=== PATIENT | male | born 1950 | race Asian ===

== ENCOUNTER 2016-10-11 14:09 | Inpatient (IN) | payer MEDICARE, MEDICAID ==
[~2016-10-11] VITALS: Ht 165.1 cm; Wt 65.8 kg
[~2016-10-11 14:09] MED LIST: ACET-2605 JT; ACET-2605 PO; ACET325T53 JT; ALBU2.5V38 IH; AMIN30LI4 JT; AMLO5TAB2 JT; BISA10SU61 RC; BLOO-668 IN; CLIN300C97 PO; DOCU50LI JT; EMPA1TAB JT; ERGO50003 JT; FERR220S2 JT; INSU100V26 SQ; IPRA0.2S9 IH; LEVE100S JT; MAGN400O4 JT; METF500T4 JT; MULT1TAB11 JT; NA P133E RC; NUT.237L30 JT; PANT40SU2 JT; PIOG30TA2 JT; SUCR1ORA2 JT
--- NOTE | 2016-10-11 14:19 | NUR ---
NAVI FROM [facility] DUE TO J-TUBE DISLODGED. PT IS AWAKE, HOWEVER NON VERBAL. APPEARS IN NO APPARENT DISTRESS. VENT DEPENDENT. PATIENT RECEIVED WITH GT CONNCTED TO DRAINAGE BAG WITH GREENISH YELLOW OUTPUT. JT DISLODGE WITH FC INPLACED FOR PATENCY. WILL CONT TO MONITOR
[2016-10-11] MEDS ORDERED: IV NS 0.9% 500 ML BAG IV ONE (15:00)
--- NOTE | 2016-10-11 15:02 | NUR ---
PAGED DR LI DE JESUS
[2016-10-11 15:03] VITALS: BP 111/68
[2016-10-11] MEDS ORDERED: IV NS 0.9% 500 ML IV ONE (15:09)
[2016-10-11] MEDS ORDERED: INSU100V10 SQ (15:20)
[2016-10-11] MEDS ORDERED: ACET325T53 JT (15:20)
[2016-10-11] MEDS ORDERED: METF10002 JT (15:20)
[2016-10-11] MEDS ORDERED: HEPA500014 SQ (15:20)
[2016-10-11] MEDS ORDERED: ATOR10TA JT (15:20)
[2016-10-11] MEDS ORDERED: CRAN3875 JT (15:26)
[2016-10-11] MEDS ORDERED: LINA5TAB JT (15:26)
[2016-10-11] MEDS ORDERED: CHOL50004 JT (15:26)
[2016-10-11] MEDS ORDERED: DEXA4TAB JT (15:27)
[2016-10-11] MEDS ORDERED: DEXA2TAB JT (15:37)
--- NOTE | 2016-10-11 15:50 | NUR ---
CORWIN AWARE FOR MIDLINE INSERTION PER MD ORDER.
--- NOTE | 2016-10-11 16:18 | NUR ---
REPAGED DR LI DE JESUS
[2016-10-11] MEDS ORDERED: AMIN30LI4 JT (16:20)
[2016-10-11] MEDS ORDERED: LEVO500T15 JT (16:28)
[2016-10-11] MEDS ORDERED: OMEP20CA10 JT (16:28)
--- NOTE | 2016-10-11 17:14 | NUR ---
PATIENT WAS TRANSPORTED TO [address] [place] [address]
[2016-10-11 17:22] LABS: BASOPHILS # (AUTO) 0.2 /CMM (0.0-0.2); EOSINOPHILS % (AUTO) 0.1 % (0.0-6.0); HEMATOCRIT 40 % (39-51); HEMOGLOBIN 13.2 g/dL (13.5-17.5); LYMPHOCYTES # (AUTO) 1.9 /CMM (0.8-4.8); LYMPHOCYTES % (AUTO) 15.9 % (20.0-44.0); MEAN CORPUSCULAR HEMOGLOBIN 30 PG (26.0-33.0); MEAN CORPUSCULAR HGB CONC 33 g/dl (31.0-36.0); MEAN CORPUSCULAR VOLUME 89 fL (80-96); MONOCYTES # (AUTO) 0.3 /CMM (0.1-1.30); MONOCYTES % (AUTO) 2.8 % (2.0-12.0); NEUTROPHILS # (AUTO) 9.6 /CMM (1.8-8.9); NEUTROPHILS % (AUTO) 79.2 % (43.0-81.0); PLATELET COUNT (AUTO) 146 /CMM (150-450); RDW COEFFICIENT OF VARIATION 15.5 (11.5-15.0); RED BLOOD CELL COUNT(AUTO) 4.49 MIL/uL (4.5-6.0)
[2016-10-11 17:25] VITALS: BP 120/73
--- NOTE | 2016-10-11 17:25 | NUR ---
DIRECTOR OF DANCEHANSARD REPORTER RECEIVED PATIENT FROM ER FOR J TUBE REPLACEMENT. MAI IN PLACE OF J TUBE SITE. VENT DEPENDENT RESPIRATORY SET UP VENT. PATIENT VS STABLE. AT BEDSIDE. SKIN CARE COMPLETED. DR DE JESUS CALLED FOR MEDICATION AND TUBE FEEDING ORDERS FOR PATIENT. RAILS UPX3 BED ALARM ON. EXTREMITIES OFFLOADED.
[2016-10-11 17:27] LABS: CREATININE 0.7 mg/dL (0.6-1.3); POTASSIUM 3.5 mmol/L (3.5-5.1)
[2016-10-11 17:29] LABS: PROTHROMBIN TIME 10.4 SECS (9.5-12.7)
[2016-10-11 17:31] LABS: ALBUMIN 2.3 g/dL (3.4-5.0); BILIRUBIN,DIRECT 0.1 mg/dL (0.0-0.2); BILIRUBIN,TOTAL 0.8 mg/dL (0.2-1.0); TOTAL PROTEIN, SERUM 6.5 g/dL (6.4-8.2)
--- NOTE | 2016-10-11 18:00 | NUR ---
LYFT DRIVER NOTES PER DR DE JESUS TELEPHONE ORDER MED RECON UPDATED AND FAXED TO PHARMACY. OK CONSULT NEHAL MARTINEZ FOR J TUBE PLACEMENT.
--- NOTE | 2016-10-11 18:26 | NUR ---
PHYSICIAN GYNECOLOGIST NOTES NOTIFIED MD CALVERT OF CONSULT HE WILL SEE. ORDER #22 AND #24 J TUBE REPLACEMENTS FOR THE AM TOMORROW 10/12. PER DR DE JESUS ORDER D51/2NS AT 150/HR
--- NOTE | 2016-10-11 18:28 | NUR ---
CLINICAL CYTOGENETICS DIRECTOR NOTES CONFIRMED WITH PHARMACY THEY RECEIVED FAX MED RECON
--- NOTE | 2016-10-11 18:58 | NUR ---
AUDIO VIDEO MECHANIC CLOSING PATIENT STABLE NO COMPLICATIONS NO CHANGES. ALL DRESSINGS OVER JTUBE G TUBE WOUND AND TRACH SITE CHANGED AND CLEAN. #22 J TUBE SITE AT BEDSIDE. UPDATED ON CARE PLAN. PATIENT VENT SETTING APPROPRIATE AND TOLERATING WELL. PATIENT BED LOWERED AND LOCKED, RAILS UPX3 FOR SAFETY AND WILL ENDORSE CARE TO RN FOR BLANCA
--- NOTE | 2016-10-11 19:00 | NUR ---
RN NOTE RECEIVED REPORT. NO S/S OF ANY DISTRESS AT THIS TIME, VENT SETTINGS ACCURATE. SKINWARM TO TOUCH, NON-DIAPHORETIC. IV INTACT AND PATENT, TOLERATING FLUIDS WELL. TELE SHOWS SR. PT IS NPO - WILL CONT TO MONITOR.
[2016-10-11] MEDS ORDERED: ALBUTEROL FS 2.5 MG/3 ML VIAL.NEB IH PRN (19:30)
[2016-10-11] MEDS: ATORVASTATIN 10 MG TABLET PEG SCH (19:30)
[2016-10-11] MEDS ORDERED: BISACODYL SUPP (10 MG) 10 MG/SUPP.RECT SUPP.RECT RC PRN (19:30)
[2016-10-11] MEDS: ACETAMINOPHEN 650 MG/20.3 ML UDC GT SCH (19:30)
[2016-10-11] MEDS: IPRATROPIUM NEB FS 0.5 MG/2.5 ML AMPUL.NEB IH SCH (19:30)
[2016-10-11] MEDS: PROSOURCE / PROSTAT (PYXIS) 30 ML UDC JT SCH (19:30)
[2016-10-11] MEDS ORDERED: IPRATROPIUM NEB FS 0.5 MG/2.5 ML AMPUL.NEB IH PRN (19:30)
[2016-10-11] MEDS ORDERED: MAGNESIUM HYDROXIDE 30 ML UDC JT PRN (19:30)
[2016-10-11] MEDS ORDERED: NA PHOS,M-B/NA PHOS,DI-BA 1 EA ENEMA RC PRN (19:30)
[2016-10-11] MEDS ORDERED: ACETAMINOPHEN 650 MG/20.3 ML UDC GT PRN (19:30)
[2016-10-11] MEDS: LEVETIRACETAM SOL (5 ML) 100 MG/ML UDC JT SCH (19:30)
[2016-10-11] MEDS ORDERED: GLYTROL 1,000 ML BAG GT SCH (19:30)
[2016-10-11] MEDS: ALBUTEROL FS 2.5 MG/3 ML VIAL.NEB IH SCH (19:30)
[2016-10-11 19:32] LABS: ANISOCYTOSIS 1+; BAND % (MANUAL) 4 % (0.0-5.0); LYMPHOCYTES % (MANUAL) 22 % (16-48); MONOCYTES % (MANUAL) 2 % (0-11.0); NEUTROPHILS % (MANUAL) 72 (42-76); PLATELET ESTIMATE DECREASED
[2016-10-11] MEDS ORDERED: IV SET PRIMARY PUMP SET 1 EA INFUS.SET MC ONE (19:44)
[2016-10-11] MEDS: METFORMIN 500 MG TABLET GT SCH (19:45)
[2016-10-11] MEDS: FERROUS SULFATE UDC 300 MG/5 ML UDC JT SCH (19:46)
[2016-10-11 20:00] VITALS: BP 101/67
[2016-10-11] MEDS: IV D5/0.45 NACL 1,000 ML IV PRN (20:03)
[2016-10-11] MEDS: HEPARIN SODIUM, PORCINE 5000 UNITS/1 ML VIAL SQ SCH (21:00)
[2016-10-11] MEDS: INSULIN DETEMIR 100 UNIT/ML CARTRIDGE SQ SCH (21:00)
--- NOTE | 2016-10-11 23:30 | NUR ---
RN NOTE MD IN TO SEE PATIENT, REMINDED HIM OF PTS WOUNDS. WILL CONT TO MONITOR.
[2016-10-12] VITALS: BP 111/63
[2016-10-12] MEDS: BLOOD SUGAR DIAGNOSTIC 1 EACH STRIP IN SCH ×4 (00:12→18:13)
[2016-10-12] MEDS: IPRATROPIUM NEB FS 0.5 MG/2.5 ML AMPUL.NEB IH SCH ×4 (01:34→19:30)
[2016-10-12] MEDS: ALBUTEROL FS 2.5 MG/3 ML VIAL.NEB IH SCH ×4 (01:34→19:30)
[2016-10-12 04:00] VITALS: BP 123/86
[2016-10-12] MEDS: IV D5/0.45 NACL 1,000 ML IV PRN ×2 (04:05→18:24)
[2016-10-12] MEDS: DEXAMETHASONE 1 MG TABLET JT SCH ×3 (05:00→21:00)
--- NOTE | 2016-10-12 06:20 | NUR ---
RN NOTE PT BS 237, PER DR. DE JESUS START PATIENT ON ASPART INSULIN - BUT DID NOT SPECIFY THE DOSE. AWAITING CALL BACK FROM DR. LOCKHART ENDORSE TO DAY SHIFT FOR BLANCA.
--- NOTE | 2016-10-12 06:35 | NUR ---
RN NOTE NO SIGNIFICANT CHANGES OVERNIGHT. NO S/S OF ANY DISTRESS AT THIS TIME. ON VENT - SETTINGS ACCURATE, KEPT CLEAN AND COMFORTABLE T/O SHIFT. ROTATED Q2 HRS. KEPT NPO FOR SURGERY WITH MD TODAY. IV INTACT AND PATENT, TOLERATING FLUIDS WELL. TELE SHOWS SR. ALL NEEDS ATTENED TO AT THIS TIME. WILL F/U WITH DAY SHIFT FOR BLANCA.
[2016-10-12 07:01] VITALS: BP 120/86
--- NOTE | 2016-10-12 08:00 | NUR ---
MS RN NOTES RECEIVED PT IN STABLE CONDITION. PT IS NONVERBAL BUT OPENS EYES AND RESPONDS TO TOUCH. PT ON MECHANICAL VENTILATOR. VENT SETTINGS WERE CHECKED AND ACCURATE. NO S/S OF DISTRESS NOTED. IV IS INTACT AND PATENT. NOTED PT TO BE NPO IN PREPARATION OF J TUBE REPLACEMENT. G TUBE IS CURRENTLY DRAINING VIA GRAVITY. WILL CONTINUE TO MONITOR PT THROUGHOUT SHIFT.
[2016-10-12 08:37] LABS: BASOPHILS % (AUTO) 0.2 % (0.0-2.0); HEMATOCRIT 40 % (39-51); HEMOGLOBIN 12.9 g/dL (13.5-17.5); LYMPHOCYTES # (AUTO) 1.2 /CMM (0.8-4.8); LYMPHOCYTES % (AUTO) 11.5 % (20.0-44.0); MEAN CORPUSCULAR HEMOGLOBIN 29 PG (26.0-33.0); MEAN CORPUSCULAR HGB CONC 33 g/dl (31.0-36.0); MEAN CORPUSCULAR VOLUME 90 fL (80-96); MONOCYTES # (AUTO) 0.9 /CMM (0.1-1.30); MONOCYTES % (AUTO) 8.3 % (2.0-12.0); NEUTROPHILS # (AUTO) 8.4 /CMM (1.8-8.9); PLATELET COUNT (AUTO) 144 /CMM (150-450); RDW COEFFICIENT OF VARIATION 16.4 (11.5-15.0); RED BLOOD CELL COUNT(AUTO) 4.42 MIL/uL (4.5-6.0); WHITE BLOOD COUNT (AUTO) 10.5 K/uL (4.3-11.0)
[2016-10-12 08:52] LABS: CALCIUM, SERUM 7.8 mg/dL (8.5-10.1); CREATININE 0.6 mg/dL (0.6-1.3); POTASSIUM 3.5 mmol/L (3.5-5.1)
[2016-10-12] MEDS: DOCUSATE SODIUM LIQ 100 MG/10 ML UDC JT SCH (09:00)
[2016-10-12] MEDS: INSULIN DETEMIR 100 UNIT/ML CARTRIDGE SQ SCH ×2 (09:00→21:00)
[2016-10-12] MEDS: FERROUS SULFATE UDC 300 MG/5 ML UDC JT SCH ×3 (09:00→17:00)
[2016-10-12] MEDS: METFORMIN 500 MG TABLET GT SCH ×2 (09:00→17:00)
[2016-10-12] MEDS: HEPARIN SODIUM, PORCINE 5000 UNITS/1 ML VIAL SQ SCH ×2 (09:00→21:00)
[2016-10-12] MEDS: CHOLECALCIFEROL 1,000 UNIT TABLET (VIT D3) JT SCH (09:00)
[2016-10-12] MEDS: LINAGLIPTIN 5 MG TABLET PEG SCH (09:00)
[2016-10-12] MEDS: ATORVASTATIN 10 MG TABLET PEG SCH (09:00)
[2016-10-12] MEDS: ACETAMINOPHEN 650 MG/20.3 ML UDC GT SCH (09:00)
[2016-10-12] MEDS: PANTOPRAZOLE 40 MG/PACK PACK JT SCH (09:00)
[2016-10-12] MEDS ORDERED: Medication Not On Formulary EA (Cran/Vitc/Mannose/Inulin/Brom (Uti-Stat Liquid) 30 ML) JT SCH (09:00)
[2016-10-12] MEDS: MULTIVITAMIN LIQ 5 ML UDC GT SCH (09:00)
[2016-10-12] MEDS ORDERED: HYDROGEL DRESSING 90 GM TUBE TP PRN (09:00)
[2016-10-12] MEDS: LEVETIRACETAM SOL (5 ML) 100 MG/ML UDC JT SCH ×2 (09:00→17:00)
[2016-10-12] MEDS: PROSOURCE / PROSTAT (PYXIS) 30 ML UDC JT SCH (09:00)
--- NOTE | 2016-10-12 09:05 | NUR ---
WOUND CARE CONSULT: PT PRESENTS WITH LEFT KNEE STAGE IV ULCER, PRESENT ON ADMISSION WITH UNDERMINING OF 3CM AT 12:00 POSITION AND GREENISH DRAINAGE. RECOMMEND SURGICAL CONSULT. PT ALSO NOTED TO HAVE ABRASION TO RT ANTERIOR FOOT AND 2 TUBES TO ABDOMEN, LOWER TUBE IS CLAMPED AND UPPER TUBE TO DRAINAGE BAG. DEFER TO MD. PT ON ANGIE ISOFLEX LOW AIRLOSS BED. DISCUSSED WOUND CARE AND SKIN PROTECTION WITH NURSING STAFF. MD IN AGREEMENT WITH PLAN OF CARE. Addendum: 10/12/16 at 0908 by BIENVENIDO CHING WNDNU Amended: Links added.
--- NOTE | 2016-10-12 09:55 | NUR ---
HELD HEPARIN DUE TO PT AWAITING J TUBE REPLACEMENT SURGERY.
[2016-10-12] MEDS: Z GUARD REMEDY 2 OZ OINT TP SCH (10:24)
[2016-10-12] MEDS: HYDROGEL DRESSING 90 GM TUBE TP SCH (10:25)
[2016-10-12] MEDS: INSULIN REGULAR, HUMAN 100 UNIT/ML 3 ML VIAL SQ PRN ×2 (12:41→18:26)
[2016-10-12] MEDS ORDERED: DIATR MEGLU/DIATRIZOATE SODIUM 30 ML BOTTLE (GASTROGRAPHIN) ONE ×2 (14:07→14:38)
--- NOTE | 2016-10-12 18:49 | NUR ---
MS RN NOTES PT IS IN BED. PT IS NONVERBAL AND OPENS EYES TO LIGHT PAIN/DEEP PAIN. PT IV PATENT AND INTACT. MECHANICAL VENTILATOR SETTINGS NOTED. G TUBE IS SET AT LOW INTERMITTENT SUCTION. STILL WAITING ON J TUBE REPLACEMENT. J TUBE SITE HAS MAI CATHETER TO KEEP OPEN. SITE IS LEFT OPEN TO AIR AND IS DRAINING GREENISH DRAINAGE. IS AT BEDSIDE. NO S/S OF DISTRESS NOTED. BED IS IN LOW LOCKED POSITION. WILL ENDORSE CARE TO PM SHIFT.
--- NOTE | 2016-10-12 19:10 | NUR ---
RN NOTE RECEIVED REPORT. PT NON-VERBAL, EYE OPENING. NO DISTRESS NOTED AT THIS TIME. VENT SETTINGS ACCURATE. G TUBE DRAINING. J TUBE LEFT OPEN TO AIR. PURULENT GREEN DISCHARGE NOTED AROUND AREA. TELE SHOWS ST. FAMILY AT BEDSIDE. WILL CONT TO MONITOR.
[2016-10-12 20:27] VITALS: BP 109/73
--- NOTE | 2016-10-12 21:00 | NUR ---
RN NOTE HEPARIN HELD. PT TO HAVE PROCEDURE WITH TOMORROW IN AM.
--- NOTE | 2016-10-12 23:00 | NUR ---
RN NOTE MD DE JESUS AT BEDSIDE, REMINDED OF PT WOUNDS. NO NEW ORDERS AT THIS TIME.
[2016-10-13] VITALS: BP 123/82
[2016-10-13] MEDS: BLOOD SUGAR DIAGNOSTIC 1 EACH STRIP IN SCH ×5 (00:13→23:53)
[2016-10-13] MEDS: IV D5/0.45 NACL 1,000 ML IV PRN ×2 (00:14→09:54)
[2016-10-13] MEDS: INSULIN REGULAR, HUMAN 100 UNIT/ML 3 ML VIAL SQ PRN ×5 (00:18→23:59)
[2016-10-13] MEDS: IPRATROPIUM NEB FS 0.5 MG/2.5 ML AMPUL.NEB IH SCH ×4 (01:28→19:41)
[2016-10-13] MEDS: ALBUTEROL FS 2.5 MG/3 ML VIAL.NEB IH SCH ×4 (01:28→19:41)
[2016-10-13 04:00] VITALS: BP 109/69
[2016-10-13] MEDS: DEXAMETHASONE 1 MG TABLET JT SCH ×3 (05:00→21:00)
--- NOTE | 2016-10-13 06:29 | NUR ---
RN NOTE NO SIGNIFICANT CHANGES OVERNIGHT. NO S/S OF ANY DISTRESS AT THIS TIME. ON VENT - SETTINGS ACCURATE. G TUBE ON INT. SUCTION, J TUBE OPEN TO AIR. TELE SHOWS SR. IV INTACT AND PATENT, TOLERATING FLUIDS WELL. KEPT CLEAN AND COMFORTABLE T/O SHIFT, ROTATED Q2HRS. SAFETY AND COMFORT MEASURES RENDERED, WILL F/U WITH DAY SHIFT FOR BLANCA. NPO STATUS - FOR J-TUBE REPLACEMENT WITH DR CALVERT.
[2016-10-13 07:17] VITALS: BP 101/65
--- NOTE | 2016-10-13 08:00 | NUR ---
MS RN NOTES PATIENT IS IN BED. PT IS NONVERBAL, RESPONDS TO TOUCH, AND IS CURRENTLY IN DECORTICATE POSITIONING. IV IS INTACT AND PATENT. G TUBE IS BEING SUCTIONED AT LOW INTERMITTENT SUCTION AND DRAINING BROWN FLUIDS. J TUBE SIDE IS DRAINING GREEN FLUIDS. G TUBE AND J TUBE SITES ARE OPEN TO AIR. PT ON TELE, CURRENTLY AT SINUS RHYTHM. BED IS IN LOW LOCKED POSITION. WILL CONTINUE TO MONITOR PT THROUGHOUT SHIFT.
[2016-10-13] MEDS: LINAGLIPTIN 5 MG TABLET PEG SCH (09:00)
[2016-10-13] MEDS: DOCUSATE SODIUM LIQ 100 MG/10 ML UDC JT SCH (09:00)
[2016-10-13] MEDS: ATORVASTATIN 10 MG TABLET PEG SCH (09:00)
[2016-10-13] MEDS: INSULIN DETEMIR 100 UNIT/ML CARTRIDGE SQ SCH ×2 (09:00→23:56)
[2016-10-13] MEDS: METFORMIN 500 MG TABLET GT SCH ×2 (09:00→17:00)
[2016-10-13] MEDS: CHOLECALCIFEROL 1,000 UNIT TABLET (VIT D3) JT SCH (09:00)
[2016-10-13] MEDS: PANTOPRAZOLE 40 MG/PACK PACK JT SCH (09:00)
[2016-10-13] MEDS: MULTIVITAMIN LIQ 5 ML UDC GT SCH (09:00)
[2016-10-13] MEDS: HEPARIN SODIUM, PORCINE 5000 UNITS/1 ML VIAL SQ SCH ×2 (09:00→23:58)
[2016-10-13] MEDS: LEVETIRACETAM SOL (5 ML) 100 MG/ML UDC JT SCH ×2 (09:00→17:00)
[2016-10-13] MEDS: ACETAMINOPHEN 650 MG/20.3 ML UDC GT SCH (09:00)
[2016-10-13] MEDS: PROSOURCE / PROSTAT (PYXIS) 30 ML UDC JT SCH (09:00)
[2016-10-13] MEDS: FERROUS SULFATE UDC 300 MG/5 ML UDC JT SCH ×3 (09:00→17:00)
--- NOTE | 2016-10-13 09:45 | NUR ---
HEPARIN HELD DUE TO PT AWAITING J TUBE REPLACEMENT
[2016-10-13] MEDS: HYDROGEL DRESSING 90 GM TUBE TP SCH (09:46)
[2016-10-13] MEDS: Z GUARD REMEDY 2 OZ OINT TP SCH (09:46)
--- NOTE | 2016-10-13 11:10 | NUR ---
MS RN NOTES DR. ED JESUS CALLED AND WAS INFORMED OF THE PATIENT BEING MRSA POSITIVE OF NARES. ORDERS RECEIVED FOR BACTROBAN. DR. DE JESUS ALSO INFORMED OF PATIENT'S POSITIVE WOUND CULTURES. ORDERS FOR CEFTRIAXONE IVPB 1G Q24H HAVE BEEN RECEIVED AND WILL BE CARRIED OUT. WILL CONTINUE TO MONITOR PATIENT.
[2016-10-13 12:00] VITALS: BP 138/82
[2016-10-13] MEDS ORDERED: SECONDARY IV SET 1 EA INFUS.SET MC ONE ×2 (12:00→23:47)
[2016-10-13] MEDS: CEFTRIAXONE 1 G in IV D5W 50 ML IV SCH (12:14)
[2016-10-13 13:48] LABS: CALCIUM, SERUM 7.5 mg/dL (8.5-10.1); CREATININE 0.6 mg/dL (0.6-1.3)
[2016-10-13 14:13] LABS: BASOPHILS % (AUTO) 0.2 % (0.0-2.0); EOSINOPHILS % (AUTO) 0.1 % (0.0-6.0); HEMATOCRIT 37 % (39-51); HEMOGLOBIN 12.1 g/dL (13.5-17.5); LYMPHOCYTES # (AUTO) 1.2 /CMM (0.8-4.8); LYMPHOCYTES % (AUTO) 12.3 % (20.0-44.0); MEAN CORPUSCULAR HEMOGLOBIN 29 PG (26.0-33.0); MEAN CORPUSCULAR HGB CONC 33 g/dl (31.0-36.0); MEAN CORPUSCULAR VOLUME 89 fL (80-96); MONOCYTES # (AUTO) 0.5 /CMM (0.1-1.30); MONOCYTES % (AUTO) 5.3 % (2.0-12.0); NEUTROPHILS # (AUTO) 7.7 /CMM (1.8-8.9); NEUTROPHILS % (AUTO) 82.1 % (43.0-81.0); PLATELET COUNT (AUTO) 144 /CMM (150-450); RED BLOOD CELL COUNT(AUTO) 4.14 MIL/uL (4.5-6.0); WHITE BLOOD COUNT (AUTO) 9.4 K/uL (4.3-11.0)
--- NOTE | 2016-10-13 15:00 | NUR ---
RN NOTES PATIENT SEEN AND EVALUATED BY DR. CALVERT ORDERS NOTED AND CARRIED OUT. PER DR. CALVERT J-TUBE TO BE REPLACED ON SUNDAY IN OR. ORDERS NOTED AND CARRIED OUT.
[2016-10-13 16:00] VITALS: BP 121/78
[2016-10-13] MEDS ORDERED: BACITRACIN ZINC OINT (15 GM) 15 GM TUBE TP SCH (17:00)
[2016-10-13] MEDS: BACITRACIN ZINC OINT PACKET 1 EA PACKET TP SCH (18:01)
--- NOTE | 2016-10-13 19:30 | NUR ---
TELE/RN NOTES RECEIVED PT. LYING IN BED WITH EYES OPEN. PT. IS NON-VERBAL. TRACH/VENT DEPENDENT. BREATHING EVEN AND UNLABORED. CURRENT VENT SETTINGS: FIO2 40%, AC 14, PEEP 0, TV 550. PT. WITH EXTERNAL WILDLIFE ECOLOGY PROFESSOR PRESENT AND INTACT. CURRENT RHYTHM = SINUS TACH HR 107. PT. WITH LEFT UPPER ARM MIDLINE PRESENT, PATENT AND INTACT ADMINISTERING TO PT. D5 1/2 NS @ 150ML/HR. PT. WITH G-TUBE PRESENT TO INTERMITTENT SUCTION. PT. WITH J-TUBE SITE KEPT OPEN WITH MAI CATHETER IN PLACE DRESSING PRESENT WITH SMALL AMOUNT OF GREEN FOUL SMELLING DRAINAGE PRESENT. PT. WITH BED IN LOWEST POSITION, CALL LIGHT WITHIN REACH, WILL CONTINUE TO MONITOR.
--- NOTE | 2016-10-13 19:36 | NUR ---
RN NOTES PATIENT IN BED RESTING, IN NO DISTRESS, VENT SETTINGS NOTED. ALL DUE MEDICATIONS GIVEN, ALL NEEDS MET. MIDLINE INTACT PATENT. ENDORSED CARE TO PM SHIFT.
[2016-10-13 20:00] VITALS: BP 128/67
[2016-10-13] MEDS: MUPIROCIN OINT 2% 22 GM TUBE SCH (21:50)
--- NOTE | 2016-10-13 23:23 | NUR ---
TELE/RN NOTES CLARIFIED WITH MD DE JESUS PT. MEDICATIONS. PER DR. NEAL MENDEZ TO ADMINISTER TO PT. LEVEMIR AND INSULIN PER SLIDING SCALE PT. IS RECEIVING IV D5 1/[address] NEAL MENDEZ TO GIVE HEPARIN ORDERED. HOLD HEPARIN @ 2100 SundayOctober PT. POSSIBLE J-TUBE PLACEMENT ON SundayOctober. PT. POTASSIUM LEVEL 3.[address] DE JESUS NEW ORDER: 20 MEQ KCL ADMINISTER OVER 2 HOURS. WILL CARRY OUT ORDERS. WILL CONTINUE TO MONITOR.
[2016-10-13] MEDS ORDERED: POTASSIUM CL. PREMIX PERIPHER. 100 ML ONE (23:37)
[2016-10-14] VITALS (8 sets, daily range): BP systolic 105–135; BP diastolic 70–91
[2016-10-14] MEDS: POTASSIUM CL. PREMIX PERIPHER. 50 ML IV SCH ×2 (00:01→01:28)
[2016-10-14] MEDS: ALBUTEROL FS 2.5 MG/3 ML VIAL.NEB IH SCH ×4 (01:19→19:32)
[2016-10-14] MEDS: IPRATROPIUM NEB FS 0.5 MG/2.5 ML AMPUL.NEB IH SCH ×4 (01:19→19:32)
[2016-10-14] MEDS: DEXAMETHASONE 1 MG TABLET JT SCH ×3 (05:00→21:00)
[2016-10-14] MEDS: IV D5/0.45 NACL 1,000 ML IV PRN ×3 (05:15→21:53)
[2016-10-14] MEDS: BLOOD SUGAR DIAGNOSTIC 1 EACH STRIP IN SCH ×4 (06:16→23:50)
[2016-10-14] MEDS: INSULIN REGULAR, HUMAN 100 UNIT/ML 3 ML VIAL SQ PRN ×3 (06:17→17:20)
--- NOTE | 2016-10-14 06:55 | NUR ---
TELE/RN NOTES PT. LYING IN BED RESTING. PT. IS TRACH/VENT DEPENDENT. BREATHING EVEN AND UNLABORED. PT. WITH EXTERNAL TABLE ASSEMBLER METAL PRESENT AND INTACT. CURRENT RHYTHM = SINUS TACH HR 102. PT. WITH LEFT UPPER ARM MIDLINE PRESENT, PATENT AND INTACT ADMINISTERING TO PT. D5 1/2 NS @ 150ML/HR. PT. WITH G-TUBE PRESENT TO INTERMITTENT SUCTION. PT. WITH J-TUBE SITE KEPT OPEN WITH MAI CATHETER IN PLACE DRESSING PRESENT WITH SMALL AMOUNT OF GREEN FOUL SMELLING DRAINAGE PRESENT. DRESSINGS CHANGED PRN THROUGHOUT SHIFT. PT. OFFLOADED. TURNED AND REPOSITIONED Q2H AND NEEDED. ALL PT. NEEDS MET. PT. WITH BED IN LOWEST POSITION, CALL LIGHT WITHIN REACH, WILL ENDORSE TO DAYSHIFT NURSE FOR CONTINUITY OF CARE.
--- NOTE | 2016-10-14 07:30 | NUR ---
NAVY SEAL NOTES PATIENT IN BED, NON VERBAL, EYES OPEN. ON TELE MONITOR SINUS TACH HR 118. ON MECH VENT WITH SETTINGS AC 14 TV 550 FiO2 40% PEEP 0, TOLERATING WELL, NO SOB. PATIENT IS ON NPO, ON IV NS D5 1/2 NS INFUSING AT 150ML/HR. GTUBE CONNECTED TO LOW INTERMITTENT SUCTION AND JTUBE, MAI IN PLACE TO KEEP STOMA PATENT, NOTED STOMA SITE LEAKING, DRESSING IN PLACE. MAINTAIN HOB. ON CONTACT ISOLATION MRSA NARES. WILL CONT TO MONITOR ACCORDINGLY.
[2016-10-14] MEDS: BACITRACIN ZINC OINT PACKET 1 EA PACKET TP SCH ×2 (08:57→17:10)
[2016-10-14] MEDS: Z GUARD REMEDY 2 OZ OINT TP SCH (08:58)
[2016-10-14] MEDS: HYDROGEL DRESSING 90 GM TUBE TP SCH (08:58)
[2016-10-14] MEDS: MUPIROCIN OINT 2% 22 GM TUBE SCH ×2 (08:59→21:11)
[2016-10-14] MEDS: ATORVASTATIN 10 MG TABLET PEG SCH (09:00)
[2016-10-14] MEDS: LEVETIRACETAM SOL (5 ML) 100 MG/ML UDC JT SCH ×2 (09:00→17:00)
[2016-10-14] MEDS: ACETAMINOPHEN 650 MG/20.3 ML UDC GT SCH (09:00)
[2016-10-14] MEDS: LINAGLIPTIN 5 MG TABLET PEG SCH (09:00)
[2016-10-14] MEDS: MULTIVITAMIN LIQ 5 ML UDC GT SCH (09:00)
[2016-10-14] MEDS: METFORMIN 500 MG TABLET GT SCH ×2 (09:00→17:00)
[2016-10-14] MEDS: CHOLECALCIFEROL 1,000 UNIT TABLET (VIT D3) JT SCH (09:00)
[2016-10-14] MEDS: DOCUSATE SODIUM LIQ 100 MG/10 ML UDC JT SCH (09:00)
[2016-10-14] MEDS: PROSOURCE / PROSTAT (PYXIS) 30 ML UDC JT SCH (09:00)
[2016-10-14] MEDS: FERROUS SULFATE UDC 300 MG/5 ML UDC JT SCH ×3 (09:00→17:00)
[2016-10-14] MEDS: PANTOPRAZOLE 40 MG/PACK PACK JT SCH (09:00)
[2016-10-14] MEDS: INSULIN DETEMIR 100 UNIT/ML CARTRIDGE SQ SCH ×2 (10:03→21:18)
[2016-10-14] MEDS: HEPARIN SODIUM, PORCINE 5000 UNITS/1 ML VIAL SQ SCH ×2 (10:08→21:12)
[2016-10-14] MEDS ORDERED: FEE PK DOSING 1 MIN EA MC ONE (10:48)
[2016-10-14] MEDS ORDERED: VANCOMYCIN 1 GM in IV D5W 250 ML IV ONE (11:00)
[2016-10-14] MEDS ORDERED: SECONDARY IV SET 1 EA INFUS.SET MC ONE ×2 (11:43→22:59)
[2016-10-14] MEDS: CEFTRIAXONE 1 G in IV D5W 50 ML IV SCH (13:08)
--- NOTE | 2016-10-14 14:35 | NUR ---
PATIENT IS CURRENTLY ON ANTIBIOTIC ROCEPHIN IV, GS WOUND CULTURE RESULTED ORG 2 E-COLI ESBL, RESISTANT TO ANTIBIOTIC CEFTRIAXONE. NOTIFIED DR. DE JESUS, LEFT MESSAGE TO HIS VOICE MAIL. AWAITING MD TO CALL BACK.
--- NOTE | 2016-10-14 18:27 | NUR ---
BASKET MENDER CLOSING NOTES PATIENT IN BED, REMAINS STABLE. NON VERBAL. MECH VENT SETTINGS REMAIN THE SAME. BREATHING TREATMENT GIVEN BY RT, SUCTION PRN. AFEBRILE, BLOOD SUGAR MONITORED. DRESSING CHANGED TO POSTERIOR LEFT LEG, TURN AND REPOSITION. JTUBE STOMA SITE LEAKING WITH GREENISH FLUID DISCHARGE, DRESSING CHANGED MULTIPLE TIMES DURING THE SHIFT. GTUBE CONNECTED TO LOW INTERMITTENT SUCTION. PATIENT IS ON CONTACT ISOLATION MRSA WOUND, MRSA NARES, E COLI ESBL WOUND. CONTACT PRECAUTION OBSERVED. CALLED NOTIFIED DR. DE JESUS, LEFT MESSAGE TO HIS VOICE MAIL X2 REGARDING CEFTRIAXONE RESISTANT. WILL ENDORSE TO SOFTWARE TEST ENGINEER RN FOR CONTINUITY OF CARE.
--- NOTE | 2016-10-14 20:00 | NUR ---
PATIENT IN BED, ALERT AND AWAKE, TRACH DEPENDENT, NO DISTRESS, 02 SATURATION 100%, NOT IN APPARENT PAIN, NO FACIAL GRIMACING, NO RESTLESSNESS, PEG TUBE IS SET TO INTERMITTENT SUCTION, J-TUBE NOT WORKING, FOR REPLACEMENT, GREENISH DRAINAGE TO SITE NOTED, DRESSING CHANGE Q2HRS, SKIN SURROUNDING J-TUBE SITE IS EXCORIATED, KEPT HOB ELEVATED TO 45 DEGREES, AT THE BEDSIDE, KEPT SAFE AND COMFORTABLE, CALL LIGHT WITHIN REACH.
--- NOTE | 2016-10-14 21:53 | NUR ---
DECADRON HELD, J-TUBE IS NOT FUNCTIONING.
--- NOTE | 2016-10-14 22:00 | NUR ---
J-TUBE SITE CARE RENDERED, SURROUNDING SKIN IS EXCORIATED RELATED TO CONSTANT LEAKAGE FROM THE SITE, WILL CHANGE DRESSING Q2HRS OR NEEDED.
--- NOTE | 2016-10-14 22:00 | NUR ---
J TUBE SITE CONTINUOUSLY LEAKING GREENISH FLUID, SURROUNDING SKIN IS EXCORIATED. PLACED COLOSTOMY BAG TO PRESERVE SKIN INTEGRITY, DRAINING WELL. SHOULD BE DRAINED Q2HRS. WILL CONTINUE TO MONITOR.
--- NOTE | 2016-10-14 22:11 | NUR ---
LEFT A MESSAGE TO DR. DE JESUS REGARDING CULTURE AND SENSITIVITY RESULT. AWAITING CALL BACK.
--- NOTE | 2016-10-14 22:21 | NUR ---
DR. DE JESUS CALLED BACK, REPORTED THE C&S RESULTS, NO NEW ORDERS FOR IV ABX, KEEP CEFTRIAXONE IV. NEW ORDER OF KEPPRA 500 MG IVP Q12 HOURS, ORDERS NOTED AND CARRIED OUT.
[2016-10-14] MEDS ORDERED: LEVETIRACETAM (500MG) 500 MG in IV NS 0.9% 100 ML IV SCH (22:30)
[2016-10-14] MEDS ORDERED: LEVETIRACETAM (500MG) 500 MG/5 ML VIAL IV ONE (22:44)
[2016-10-14] MEDS ORDERED: IV NS 0.9% 0 ML IV ONE (22:59)
[2016-10-14] MEDS: VANCOMYCIN 0.75 GM in IV D5W 250 ML IV SCH (23:50)
[2016-10-15] VITALS (7 sets, daily range): BP systolic 94–141; BP diastolic 66–93
--- NOTE | 2016-10-15 | NUR ---
BG 155 MG/DL, INSULIN HELD, GIVEN LEVEMIR 15 UNITS AND PATIENT HAS NO J-TUBE FEEDING.
[2016-10-15] MEDS: IPRATROPIUM NEB FS 0.5 MG/2.5 ML AMPUL.NEB IH SCH ×4 (00:48→19:40)
[2016-10-15] MEDS: ALBUTEROL FS 2.5 MG/3 ML VIAL.NEB IH SCH ×4 (00:48→19:40)
--- NOTE | 2016-10-15 01:03 | NUR ---
RT SUCTIONED PT, HIS SECRETION WAS THICK YELLOW AND SMALL. NO RESP DISTRESS Addendum: 10/15/16 at 0105 by IRENA ANAYA RT Amended: Links added.
[2016-10-15] MEDS: DEXAMETHASONE 1 MG TABLET JT SCH ×3 (05:00→20:29)
--- NOTE | 2016-10-15 05:04 | NUR ---
DECADRON HELD, J TUBE NOT FUNCTIONING
[2016-10-15] MEDS: INSULIN REGULAR, HUMAN 100 UNIT/ML 3 ML VIAL SQ PRN ×3 (05:37→17:34)
[2016-10-15] MEDS: BLOOD SUGAR DIAGNOSTIC 1 EACH STRIP IN SCH ×3 (06:05→17:26)
[2016-10-15] MEDS: IV D5/0.45 NACL 1,000 ML IV PRN ×2 (06:05→17:18)
--- NOTE | 2016-10-15 06:59 | NUR ---
PATIENT RESTING, NO SOB, NO RESPIRATORY DISTRESS, VENTILATOR IN GOOD WORKING CONDITION, 02 SAT 99-100%, NOT IN APPARENT PAIN, NO RESTLESSNESS, NO FACIAL GRIMACING, PEG TUBE ON INTERMITTENT SUCTION, WITH OUTPUT OF GREENISH AND BROWNISH LIQUID, J-TUBE IS NOT WORKING, WITH GREENISH DRAINAGE, PROVIDED GOOD PERINEAL CARE, WOUND CARE RENDERED, KEPT HOB ELEVATED, SEIZURE PRECAUTION, BILATERAL LOWER EXT OFFLOADED, ALL DUE MEDICATIONS GIVEN, CALL LIGHT WITHIN REACH.
--- NOTE | 2016-10-15 07:15 | NUR ---
SPRAYER OPERATOR NOTES RECEIVED PATIENT IN BED, NON VERBAL, EYES OPEN. ON VENT WITH THE SAME VENT SETTINGS. ON TELE MONITOR SINUS TACH HR 107. PATIENT REMAINS NPO STATUS, CONT ON IV D5 1/2 NS INFUSING AT 150ML/HR. APPEARS COMFORTABLE IN BED, AFEBRILE. GTUBE CONNECTED TO LOW INTERMITTENT SUCTION, JTUBE STOMA SITE LEAKING, WITH BAG FOR DRAINAGE GREENISH COLOR. WILL CONT TO TURN AND REPOSITION PATIENT.
[2016-10-15 07:41] LABS: BASOPHILS % (AUTO) 0.3 % (0.0-2.0); EOSINOPHILS % (AUTO) 0.3 % (0.0-6.0); HEMATOCRIT 37 % (39-51); HEMOGLOBIN 12.4 g/dL (13.5-17.5); LYMPHOCYTES # (AUTO) 1.5 /CMM (0.8-4.8); LYMPHOCYTES % (AUTO) 16.9 % (20.0-44.0); MEAN CORPUSCULAR HEMOGLOBIN 30 PG (26.0-33.0); MEAN CORPUSCULAR HGB CONC 33 g/dl (31.0-36.0); MEAN CORPUSCULAR VOLUME 89 fL (80-96); MONOCYTES # (AUTO) 0.4 /CMM (0.1-1.30); MONOCYTES % (AUTO) 4.6 % (2.0-12.0); NEUTROPHILS # (AUTO) 6.9 /CMM (1.8-8.9); NEUTROPHILS % (AUTO) 77.9 % (43.0-81.0); PLATELET COUNT (AUTO) 162 /CMM (150-450); RDW COEFFICIENT OF VARIATION 15.8 (11.5-15.0); RED BLOOD CELL COUNT(AUTO) 4.21 MIL/uL (4.5-6.0); WHITE BLOOD COUNT (AUTO) 8.9 K/uL (4.3-11.0)
[2016-10-15 07:54] LABS: CALCIUM, SERUM 7.7 mg/dL (8.5-10.1); CREATININE 0.6 mg/dL (0.6-1.3)
[2016-10-15 08:07] LABS: POTASSIUM 2.6 mmol/L (3.5-5.1)
[2016-10-15] MEDS ORDERED: SECONDARY IV SET 1 EA INFUS.SET MC ONE ×2 (08:56→09:32)
[2016-10-15] MEDS: FERROUS SULFATE UDC 300 MG/5 ML UDC JT SCH ×3 (09:00→16:41)
[2016-10-15] MEDS: PANTOPRAZOLE 40 MG/PACK PACK JT SCH (09:00)
[2016-10-15] MEDS: MULTIVITAMIN LIQ 5 ML UDC GT SCH (09:00)
[2016-10-15] MEDS: ACETAMINOPHEN 650 MG/20.3 ML UDC GT SCH (09:00)
[2016-10-15] MEDS: METFORMIN 500 MG TABLET GT SCH ×2 (09:00→16:41)
[2016-10-15] MEDS: LINAGLIPTIN 5 MG TABLET PEG SCH (09:00)
[2016-10-15] MEDS: ATORVASTATIN 10 MG TABLET PEG SCH (09:00)
[2016-10-15] MEDS: PROSOURCE / PROSTAT (PYXIS) 30 ML UDC JT SCH (09:00)
[2016-10-15] MEDS: DOCUSATE SODIUM LIQ 100 MG/10 ML UDC JT SCH (09:00)
[2016-10-15] MEDS: CHOLECALCIFEROL 1,000 UNIT TABLET (VIT D3) JT SCH (09:00)
[2016-10-15] MEDS: LEVETIRACETAM (500MG) 500 MG in IV NS 0.9% 100 ML IV SCH ×2 (09:02→20:27)
--- NOTE | 2016-10-15 09:11 | NUR ---
SINUS TACH INCREASING HR 150-158. LOW POTASSIUM 2.6, SPOKE TO DR. DE JESUS, ORDERED POTASSIUM 20 MEQ IV X1. PER MD CALL HIM IF PATIENT STILL TACHY AFTER POTASSIUM IS GIVEN. CHARGE NURSE IS AWARE.
[2016-10-15] MEDS: MUPIROCIN OINT 2% 22 GM TUBE SCH ×2 (09:18→20:28)
[2016-10-15] MEDS: HEPARIN SODIUM, PORCINE 5000 UNITS/1 ML VIAL SQ SCH ×2 (09:23→20:29)
[2016-10-15] MEDS: INSULIN DETEMIR 100 UNIT/ML CARTRIDGE SQ SCH ×2 (09:29→20:33)
[2016-10-15] MEDS: HYDROGEL DRESSING 90 GM TUBE TP SCH (09:31)
[2016-10-15] MEDS: BACITRACIN ZINC OINT PACKET 1 EA PACKET TP SCH ×2 (09:31→16:41)
[2016-10-15] MEDS: Z GUARD REMEDY 2 OZ OINT TP SCH (09:32)
[2016-10-15] MEDS: POTASSIUM CL. PREMIX PERIPHER. 50 ML IV SCH ×2 (09:51→10:50)
[2016-10-15] MEDS: CEFTRIAXONE 1 G in IV D5W 50 ML IV SCH (12:22)
[2016-10-15] MEDS: VANCOMYCIN 0.75 GM in IV D5W 250 ML IV SCH (12:43)
--- NOTE | 2016-10-15 14:41 | NUR ---
PATIENT IS SEEN BY DR. DE JESUS TODAY. POTASSIUM IV SUPPLEMENTED AND CURRENT HR IN THE MONITOR 118, DR. DE JESUS MADE AWARE, MD ORDERED BMP, MAGNESIUM STAT. PER DR. DE JESUS IF POTASSIUM STILL LOW GIVE ANOTHER POTASSIUM 20MEQ IV AND IF MAGNESIUM LEVEL IS LOW, GIVE 2GM IV MAGNESIUM. ALSO WOUND CULTURE SENSITIVITY RESULT DISCUSSED WITH MD, DR. DE JESUS STATED PATIENT IS ON BACTROBAN OINT, KEEP CEFTRIAXONE IV. CHARGE NURSE MADE AWARE.
[2016-10-15 15:35] LABS: CALCIUM, SERUM 7.5 mg/dL (8.5-10.1); CREATININE 0.6 mg/dL (0.6-1.3); MAGNESIUM 1.7 mg/dL (1.8-2.4)
--- NOTE | 2016-10-15 15:47 | NUR ---
LOW MAGNESIUM LEVEL 1.7 DR. DE JESUS ORDERED 2GM MAGNESIUM IV NOTED AND ACKNOWLEDGED.
[2016-10-15] MEDS: Magnesium 1GM/D5W 100ML PREMIX 100 ML IV SCH ×2 (16:10→17:25)
[2016-10-15] MEDS ORDERED: IV SET PRIMARY PUMP SET 1 EA INFUS.SET MC ONE (17:11)
--- NOTE | 2016-10-15 18:10 | NUR ---
CARE REP CLOSING NOTES PATIENT IN BED, VENT SETTINGS REMAINS THE SAME. BREATHING TREATMENT GIVEN BY RT, SUCTION PRN. NO SOB NOTED. DRESSING CHANGED TO WOUND, TURN AND REPOSITION. SINUS TACH HR 113 IN THE TELE MONITOR. POTASSIUM AND MAGNESIUM SUPPLEMENTED ORDERED. JTUBE STOMA CONTINUOUS TO LEAK AND WITH LARGE DRAINAGE, GREENISH COLOR. IRRITATED SKIN SURROUNDING JTUBE STOMA AND GTUBE STOMA PROTECT WITH BACITRACIN OINTMENT. PATIENT IS SEEN BY DR. CALVERT TODAY, PATIENT SCHEDULED FOR BOTH TUBES INSERTION TOMORROW, 10/16/16. CONSENTED, CONSENT FORM PLACE IN THE CHART. WILL ENDORSE TO INVESTIGATOR UTILITY BILL COMPLAINTS RN FOR CONTINUITY OF CARE.
--- NOTE | 2016-10-15 19:23 | NUR ---
RECEIVED ORDERS FROM GIANNI BATES 1.5GM Q 6 HOURS, PER MD CONTINUE CEFTRIAXONE 1GM IV Q 24 HOURS. NOTED AND ACKNOWLEDGED. ENDORSED TO MASONRY INSTRUCTOR RN.
--- NOTE | 2016-10-15 19:30 | NUR ---
MERCHANDISE TEAM MANAGER NOTES RECEIVED PATIENT IN BED, NON VERBAL, EYES OPEN. ON VENT WITH THE SAME VENT SETTINGS. ON TELE MONITOR SINUS TACH HR 128. PATIENT REMAINS NPO STATUS, CONT ON IV D5 1/2 NS INFUSING AT 150ML/HR. APPEARS COMFORTABLE IN BED, AFEBRILE. GTUBE CONNECTED TO LOW INTERMITTENT SUCTION, JTUBE STOMA SITE LEAKING, WITH BAG FOR DRAINAGE GREENISH COLOR. WILL CONT TO TURN AND REPOSITION PATIENT.
--- NOTE | 2016-10-15 19:42 | NUR ---
INFORMED DR. DE JESUS THAT PHARMACY DOES NOT CARRY SPECIFIC ANTIBIOTIC UNASYN, PER MD HOLD OFF ON ANTIBIOTIC UNASYN AND WAIT TIL PATIENT HAS GT. ENDORSED TO BATCH OPERATOR RN.
[2016-10-15] MEDS ORDERED: ACETAMINOPHEN 650 MG/SUPP.RECT RC ONE (20:14)
[2016-10-15] MEDS ORDERED: ACETAMINOPHEN 650 MG/SUPP.RECT RC PRN (20:30)
[2016-10-16] VITALS (7 sets, daily range): BP systolic 98–143; BP diastolic 60–75
[2016-10-16] MEDS: BLOOD SUGAR DIAGNOSTIC 1 EACH STRIP IN SCH ×5 (01:22→23:51)
[2016-10-16] MEDS: VANCOMYCIN 0.75 GM in IV D5W 250 ML IV SCH ×3 (01:22→23:51)
[2016-10-16] MEDS: IPRATROPIUM NEB FS 0.5 MG/2.5 ML AMPUL.NEB IH SCH ×4 (01:25→20:17)
[2016-10-16] MEDS: ALBUTEROL FS 2.5 MG/3 ML VIAL.NEB IH SCH ×4 (01:25→20:17)
--- NOTE | 2016-10-16 02:00 | NUR ---
BLACK TOP ROLLER NOTE ST 115 AT THIS TIME. PATIENT STABLE. REPOSITIONING EVERY TWO HOURS. PERFORMED WOUND CARE ORDERED. PICTURES TAKEN AND PLACED IN CHART. WILL CONTINUE TO MONITOR.
[2016-10-16] MEDS: IV D5/0.45 NACL 1,000 ML IV PRN ×3 (03:17→19:57)
[2016-10-16] MEDS: DEXAMETHASONE 1 MG TABLET JT SCH ×3 (05:00→20:05)
--- NOTE | 2016-10-16 07:20 | NUR ---
gun fitter Initial notes Received patient in bed, asleep, head of bed elevated, no SOB or distress noted. On mechanical vent and tolerated well. 02 saturation of 100%. GT site in placed with dressing, attached to intermittent suction. . JT with drainage bag with output noted. PETE midline in placed and intact with IVF infusing well. Kept patient clean and comfortable in bed, call light with in patient reach will continue to monitor accordingly. On tele monitor ST heart rate of 122. No facial grimace or discomfort noted.
[2016-10-16 08:03] LABS: BASOPHILS % (AUTO) 0.3 % (0.0-2.0); EOSINOPHILS % (AUTO) 0.4 % (0.0-6.0); HEMATOCRIT 33 % (39-51); LYMPHOCYTES # (AUTO) 1.4 /CMM (0.8-4.8); MEAN CORPUSCULAR HEMOGLOBIN 29 PG (26.0-33.0); MEAN CORPUSCULAR HGB CONC 34 g/dl (31.0-36.0); MEAN CORPUSCULAR VOLUME 88 fL (80-96); MONOCYTES # (AUTO) 0.5 /CMM (0.1-1.30); NEUTROPHILS # (AUTO) 7.8 /CMM (1.8-8.9); NEUTROPHILS % (AUTO) 80.3 % (43.0-81.0); PLATELET COUNT (AUTO) 152 /CMM (150-450); RDW COEFFICIENT OF VARIATION 15.8 (11.5-15.0); RED BLOOD CELL COUNT(AUTO) 3.74 MIL/uL (4.5-6.0); WHITE BLOOD COUNT (AUTO) 9.8 K/uL (4.3-11.0)
[2016-10-16 08:20] LABS: CALCIUM, SERUM 7.1 mg/dL (8.5-10.1); CREATININE 0.7 mg/dL (0.6-1.3); MAGNESIUM 2.1 mg/dL (1.8-2.4)
[2016-10-16 08:23] LABS: POTASSIUM 2.6 mmol/L (3.5-5.1)
[2016-10-16] MEDS: MULTIVITAMIN LIQ 5 ML UDC GT SCH (08:54)
[2016-10-16] MEDS: FERROUS SULFATE UDC 300 MG/5 ML UDC JT SCH ×3 (08:54→16:22)
[2016-10-16] MEDS: DOCUSATE SODIUM LIQ 100 MG/10 ML UDC JT SCH (08:54)
[2016-10-16] MEDS: METFORMIN 500 MG TABLET GT SCH ×2 (08:54→16:22)
[2016-10-16] MEDS: ACETAMINOPHEN 650 MG/20.3 ML UDC GT SCH (08:54)
[2016-10-16] MEDS: ATORVASTATIN 10 MG TABLET PEG SCH (08:55)
[2016-10-16] MEDS: CHOLECALCIFEROL 1,000 UNIT TABLET (VIT D3) JT SCH (08:55)
[2016-10-16] MEDS: PROSOURCE / PROSTAT (PYXIS) 30 ML UDC JT SCH (08:55)
[2016-10-16] MEDS: PANTOPRAZOLE 40 MG/PACK PACK JT SCH (08:55)
[2016-10-16] MEDS: LINAGLIPTIN 5 MG TABLET PEG SCH (08:55)
[2016-10-16] MEDS: HEPARIN SODIUM, PORCINE 5000 UNITS/1 ML VIAL SQ SCH ×2 (08:55→20:02)
--- NOTE | 2016-10-16 09:00 | NUR ---
television director notes All morning medication via GT held due to patient is on procedure for GT placement. Will continue to monitor accordingly.
[2016-10-16] MEDS: LEVETIRACETAM (500MG) 500 MG in IV NS 0.9% 100 ML IV SCH ×2 (09:15→20:08)
[2016-10-16] MEDS: Z GUARD REMEDY 2 OZ OINT TP SCH (09:16)
[2016-10-16] MEDS: INSULIN DETEMIR 100 UNIT/ML CARTRIDGE SQ SCH ×2 (09:16→20:03)
[2016-10-16] MEDS: HYDROGEL DRESSING 90 GM TUBE TP SCH (09:17)
[2016-10-16] MEDS: MUPIROCIN OINT 2% 22 GM TUBE SCH ×2 (09:18→20:06)
--- NOTE | 2016-10-16 09:38 | NUR ---
television specialist notes paged Dr. Harrington regarding patient potassium level of 2.6. Waiting for MD to call back. Will continue to monitor accordingly.
[2016-10-16] MEDS ORDERED: IV SET PRIMARY PUMP SET 1 EA INFUS.SET MC ONE (09:47)
[2016-10-16] MEDS: POTASSIUM CL. PREMIX PERIPHER. 50 ML IV SCH ×2 (09:51→10:34)
--- NOTE | 2016-10-16 10:00 | NUR ---
mold loft worker notes Dr. Harrington called back and informed regarding patient potassium level of 2.6 and ordered Potassium IV 20meq. All orders carried out and noted. Will continue to monitor accordingly.
[2016-10-16] MEDS: CEFTRIAXONE 1 G in IV D5W 50 ML IV SCH (12:23)
[2016-10-16] MEDS: INSULIN REGULAR, HUMAN 100 UNIT/ML 3 ML VIAL SQ PRN ×2 (12:25→18:24)
--- NOTE | 2016-10-16 12:26 | NUR ---
crossband layer Notes Blood sugar checked 167 no coverage given due to patient is NPO. Will continue to monitor accordingly.
--- NOTE | 2016-10-16 12:31 | NUR ---
administrative assistant notes Held 1300 medication due to patient is for procedure for GT placement. Will continue to monitor accordingly.
[2016-10-16] MEDS: BACITRACIN ZINC OINT PACKET 1 EA PACKET TP SCH ×2 (12:33→18:23)
--- NOTE | 2016-10-16 13:28 | NUR ---
tele tech Notes Verbal order from Dr. Packer to order stat abdominal x-ray due to S/P GT and JT placement. All orders carried out and noted. Will continue to monitor accordingly.
[2016-10-16] MEDS ORDERED: DIATR MEGLU/DIATRIZOATE SODIUM 120 ML BOTTLE (GASTROGRAPHIN) ONE (13:30)
--- NOTE | 2016-10-16 16:22 | NUR ---
line builder notes Held 1700 medications due to patient is NPO and s/p GT placement connected to intermittent suctioning. Will continue to monitor accordingly.
--- NOTE | 2016-10-16 19:15 | NUR ---
sales agent trading stamps closing notes All needs provided, attended, and anticipated. Kept patient clean and comfortable in bed, call light with in patient reach, will continue to monitor accordingly. GT attached to intermittent suction with 400 ml output. JT clamed and leave open to air. Dr. Packer made aware of the leakage and kept clamped. Endorsed to next shift RN to continue care. On tele monitor ST 109 heart rate.
--- NOTE | 2016-10-16 20:00 | NUR ---
RN NOTES RECEIVED IN BED, FLEXES EXT WITH TOUCH, NO VERBAL OUTPUT NO EYE REGARD; WITH TRACH CUFF INTACT TO VENT; WITH G TUBE TO INTERMITTENT WALL SUCTION WITH J TUBE CLAMPED AND OPEN TO AIR WITH SMALL TO MOD LEAK AROUND SITE PER REPORT FROM AM NURSE; WITH IV ACCESS LEFT UA PATENT INTACT FLUSHED; WITH DIAPER ON; HEELS OFFLOADED; SEE SKIN FLOWSHEET FOR SKIN ASSESSMENT; REPOSITIONED PX TO THE RIGHT SIDE; SUCTIONED ORALLY AND TRACHEALLY WITH HOB AT 40 ANGLE; SR ON MONITOR.
[2016-10-17] VITALS: BP 104/66
--- NOTE | 2016-10-17 00:17 | NUR ---
RN NOTES HAD 1 BM, CLEANED PX AND CHANGED GOWN AND BED LINENS, PERICARE RENDERED; Z GUARD APPLIED TO SACRAL AREA WITH REDNESS AND VERY SMALL EXCORIATION; CHANGED DRESSSING ON THE LEFT KNEE POSTERIOR AND RIGHT FOOT PER PROTOCOL; CHANGED TRACH DRESSING; J TUBE STILL WITH LEAK; ON BILAT DVT PUMPS.
[2016-10-17] MEDS: IPRATROPIUM NEB FS 0.5 MG/2.5 ML AMPUL.NEB IH SCH ×4 (01:50→19:26)
[2016-10-17] MEDS: ALBUTEROL FS 2.5 MG/3 ML VIAL.NEB IH SCH ×4 (01:50→19:26)
[2016-10-17 04:00] VITALS: BP 99/64
[2016-10-17] MEDS: DEXAMETHASONE 1 MG TABLET JT SCH ×3 (05:00→21:00)
[2016-10-17] MEDS: IV D5/0.45 NACL 1,000 ML IV PRN ×2 (06:02→21:10)
[2016-10-17] MEDS: INSULIN REGULAR, HUMAN 100 UNIT/ML 3 ML VIAL SQ PRN ×3 (06:02→23:57)
[2016-10-17] MEDS: BLOOD SUGAR DIAGNOSTIC 1 EACH STRIP IN SCH ×4 (06:07→23:53)
--- NOTE | 2016-10-17 06:24 | NUR ---
RN NOTES HAD ANOTHER BM, CLEANED AND PERICARE RENDERED, CHANGED DIAPER; NO NEW SKIN BREAKDOWN; STILL WITH SMALL TO MOD LEAK ON J TUBE; SUCTIONED ORALLY AND TRACHEALLY; V/S WNL, SR ON MONITOR; WILL ENDORSE TO NEXT RN.
[2016-10-17 06:30] VITALS: BP 92/57
--- NOTE | 2016-10-17 07:20 | NUR ---
RN OPENING NOTES RECEIVED PATIENT IN BED, AWAKE, HEAD OF BED ELEVATED, NO SOB OR DISTRESS NOTED. ON TELE MONITOR SR HEART RATE 95. PATIENT OPEN EYES AND DO NOT FOLLOW COMMANDS AND IS NOT VERBAL. PATIENT IS IN VENTILATOR. IV INTACT AND PATENT. KEPT PATIENT CLEAN AND COMFORTABLE IN BED, CALL LIGHT WITHIN PATIENT REACH, WILL CONTINUE TO MONITOR ACCORDINGLY.
[2016-10-17 08:00] VITALS: BP 85/45
[2016-10-17] MEDS ORDERED: SECONDARY IV SET 1 EA INFUS.SET MC ONE ×5 (08:45→22:34)
[2016-10-17] MEDS: INSULIN DETEMIR 100 UNIT/ML CARTRIDGE SQ SCH ×2 (08:52→21:00)
[2016-10-17] MEDS: LEVETIRACETAM (500MG) 500 MG in IV NS 0.9% 100 ML IV SCH ×2 (08:56→21:14)
[2016-10-17] MEDS: HEPARIN SODIUM, PORCINE 5000 UNITS/1 ML VIAL SQ SCH ×2 (08:56→22:40)
[2016-10-17] MEDS: HYDROGEL DRESSING 90 GM TUBE TP SCH (08:58)
[2016-10-17] MEDS: Z GUARD REMEDY 2 OZ OINT TP SCH (08:58)
[2016-10-17] MEDS: BACITRACIN ZINC OINT PACKET 1 EA PACKET TP SCH ×2 (08:58→17:00)
[2016-10-17] MEDS: MUPIROCIN OINT 2% 22 GM TUBE SCH ×2 (08:59→21:37)
[2016-10-17] MEDS: LINAGLIPTIN 5 MG TABLET PEG SCH (09:00)
[2016-10-17] MEDS: DOCUSATE SODIUM LIQ 100 MG/10 ML UDC JT SCH (09:00)
[2016-10-17] MEDS: MULTIVITAMIN LIQ 5 ML UDC GT SCH (09:00)
[2016-10-17] MEDS: CHOLECALCIFEROL 1,000 UNIT TABLET (VIT D3) JT SCH (09:00)
[2016-10-17] MEDS: FERROUS SULFATE UDC 300 MG/5 ML UDC JT SCH ×3 (09:00→17:00)
[2016-10-17] MEDS: PROSOURCE / PROSTAT (PYXIS) 30 ML UDC JT SCH (09:00)
[2016-10-17] MEDS: ATORVASTATIN 10 MG TABLET PEG SCH (09:00)
[2016-10-17] MEDS: PANTOPRAZOLE 40 MG/PACK PACK JT SCH (09:00)
[2016-10-17] MEDS: ACETAMINOPHEN 650 MG/20.3 ML UDC GT SCH (09:00)
[2016-10-17] MEDS: METFORMIN 500 MG TABLET GT SCH ×2 (09:00→17:00)
[2016-10-17 10:18] LABS: CALCIUM, SERUM 7.5 mg/dL (8.5-10.1); CREATININE 0.7 mg/dL (0.6-1.3)
[2016-10-17 10:22] LABS: BASOPHILS % (AUTO) 0.4 % (0.0-2.0); EOSINOPHILS % (AUTO) 0.3 % (0.0-6.0); HEMATOCRIT 35 % (39-51); HEMOGLOBIN 11.4 g/dL (13.5-17.5); LYMPHOCYTES # (AUTO) 1.6 /CMM (0.8-4.8); LYMPHOCYTES % (AUTO) 21.1 % (20.0-44.0); MEAN CORPUSCULAR HEMOGLOBIN 29 PG (26.0-33.0); MEAN CORPUSCULAR HGB CONC 33 g/dl (31.0-36.0); MEAN CORPUSCULAR VOLUME 88 fL (80-96); MONOCYTES # (AUTO) 0.4 /CMM (0.1-1.30); MONOCYTES % (AUTO) 4.8 % (2.0-12.0); NEUTROPHILS # (AUTO) 5.5 /CMM (1.8-8.9); NEUTROPHILS % (AUTO) 73.4 % (43.0-81.0); PLATELET COUNT (AUTO) 145 /CMM (150-450); RDW COEFFICIENT OF VARIATION 15.7 (11.5-15.0); RED BLOOD CELL COUNT(AUTO) 3.96 MIL/uL (4.5-6.0); WHITE BLOOD COUNT (AUTO) 7.5 K/uL (4.3-11.0)
[2016-10-17 10:23] LABS: POTASSIUM 2.3 mmol/L (3.5-5.1)
--- NOTE | 2016-10-17 11:36 | NUR ---
WOUND CARE FOLLOW UP: PT SEEN FOR EXCORIATED ABDOMEN. PT CONTINUES TO HAVE G TUBE TO DRAINAGE BAG WITH SLIGHT EXCORIATION AROUND TUBE. J TUBE SITE HAS REDNESS AND EXCORIATION WITH GREENISH DRAINAGE AROUND TUBE (WHICH IS CLAMPED). PT SEEN AND EXAMINED BY DR CALVERT. RECOMMEND Z GUARD FOR SKIN PROTECTION. KEEP SKIN CLEAN AND DRY. LEFT LEG WOUND NOTED TO HAVE SEROSANGUINOUS DRAINAGE AT THIS TIME, NO ODOR AND UNDERMINING OF 3CM AT 12 O CLOCK. RECOMMEND SURGICAL CONSULT. ALL SKIN AND WOUND RECOMMENDATIONS DISCUSSED WITH NURSING STAFF. MD IN AGREEMENT WITH PLAN OF CARE. Addendum: 10/17/16 at 1139 by BIENVENIDO CHING WNDNU Amended: Links added.
[2016-10-17] MEDS: VANCOMYCIN 0.75 GM in IV D5W 250 ML IV SCH ×2 (11:45→23:52)
--- NOTE | 2016-10-17 12:13 | NUR ---
RN NOTES CALLED DR. DE JESUS AT 1213 AND LEFT A MESSAGE.
--- NOTE | 2016-10-17 13:30 | NUR ---
RN NOTES DOCTOR NEAL RECOMMENDED NOT TO DO A SURGICAL CONSULT.
[2016-10-17] MEDS ORDERED: POTASSIUM CL. PREMIX PERIPHER. 50 ML IV SCH (14:00)
[2016-10-17] MEDS ORDERED: IMIPENEM/CILASTATIN 500 MG in IV NS 0.9% 100 ML IV SCH (14:00)
[2016-10-17] MEDS: MEROPENEM 500 MG in IV NS 0.9% 50 ML IV SCH ×2 (15:25→22:39)
[2016-10-17 16:00] VITALS: BP 101/57
[2016-10-17] MEDS ORDERED: IV SET PRIMARY PUMP SET 1 EA INFUS.SET MC ONE (16:26)
[2016-10-17] MEDS: POTASSIUM CL. PREMIX PERIPHER. 50 ML IV SCH ×2 (16:30→17:51)
--- NOTE | 2016-10-17 17:20 | NUR ---
RN CLOSING NOTES ALL NEEDS PROVIDED, ATTENDED AND ANTICIPATED. ON TELE MONITOR SR HEART RATE OF 95. KEPT PATIENT CLEAN AND COMFORTABLE IN BED, CALL LIGHT WITHIN PATIENT REACH, WILL CONTINUE TO MONITOR ACCORDINGLY. ENDORSED TO NEXT SHIFT RN TO CONTINUE CARE.
--- NOTE | 2016-10-17 17:30 | NUR ---
RN NOTES BLOOD GLUCOSE 45. DR. GRANT.
[2016-10-17] MEDS ORDERED: DEXTROSE 50%-WATER 50 ML DISP.SYRIN ONE (17:57)
[2016-10-17] MEDS ORDERED: DEXTROSE 50%-WATER 50 ML DISP.SYRIN IV PRN (19:00)
[2016-10-17] MEDS: AMPICILLIN 1 GM in IV NS 0.9% 50 ML IV SCH (19:10)
--- NOTE | 2016-10-17 19:40 | NUR ---
TELE/RN OPENING NOTES PT RESTING IN BED, ON VENTILATOR WITH NO SIGNS OF DISTRESS NOTED. AT BEDSIDE. HOB ELEVATED. ON TELE MONITOR, SINUS RHYTHM WITH HEART RATE AT 88. PETE MIDLINE RUNNING D51/2NS AT 150ML/HR. GT ON LOW INTERMITTENT SUCTION, J TUBE LEAKING GREEN FLUID. BED IN LOW/LOCKED POSITION, EXTREMITIES OFFLOADED. WILL CONTINUE TO MONITOR
[2016-10-17 20:38] VITALS: BP 140/78
--- NOTE | 2016-10-17 21:30 | NUR ---
TELE/RN NOTES BLOOD SUGAR=72 NON-ADMINISTERED SCHEDULED LEVEMIR 15 UNITS IVF RUNNING D51/2NS@150 ML/HR
--- NOTE | 2016-10-17 22:00 | NUR ---
TELE/RN NOTES SPOKE TO DR. DE JESUS, PER MD FERRER TO ADMINISTERED SCHEDULED HEPARIN ALTHOUGH PLATELETS ARE 145,000 WILL CARRY OUT.
[2016-10-18] VITALS: BP 138/78
--- NOTE | 2016-10-18 00:04 | NUR ---
TELE/RN NOTES NON-ADMINISTERED INSULIN PER SLIDING SCALE. BLOOD SUGAR=80 IV RUNNING D51/2NS @150ML/HR
[2016-10-18] MEDS: IPRATROPIUM NEB FS 0.5 MG/2.5 ML AMPUL.NEB IH SCH ×4 (01:21→20:04)
[2016-10-18] MEDS: ALBUTEROL FS 2.5 MG/3 ML VIAL.NEB IH SCH ×4 (01:21→20:04)
[2016-10-18] MEDS ORDERED: SECONDARY IV SET 1 EA INFUS.SET MC ONE (02:48)
--- NOTE | 2016-10-18 03:00 | NUR ---
TELE/RN NOTES ADMINISTERED SCHEDULED 2099 AMPICILLIN LATE DUE TO PREVIOUS DOSE GIVEN LATE AT 191
[2016-10-18] MEDS: AMPICILLIN 1 GM in IV NS 0.9% 50 ML IV SCH ×2 (03:17→10:19)
[2016-10-18 04:00] VITALS: BP 141/79
[2016-10-18] MEDS: DEXAMETHASONE 1 MG TABLET JT SCH ×3 (04:56→21:00)
[2016-10-18] MEDS: MEROPENEM 500 MG in IV NS 0.9% 50 ML IV SCH ×3 (05:57→22:02)
[2016-10-18] MEDS: BLOOD SUGAR DIAGNOSTIC 1 EACH STRIP IN SCH ×3 (05:57→18:07)
[2016-10-18] MEDS: INSULIN REGULAR, HUMAN 100 UNIT/ML 3 ML VIAL SQ PRN (06:02)
--- NOTE | 2016-10-18 06:02 | NUR ---
TELE/RN NOTES BLOOD KUYNV=[id number] NO INSULIN ADMINISTRATION PER SLIDING SCALE.
--- NOTE | 2016-10-18 06:45 | NUR ---
TELE/RN CLOSING NOTES PT ASLEEP, OPENS EYES BUT NON VERBAL. ON VENTILATOR WITH SETTINGS NOTED. NO S/S OF DISTRESS OR PAIN. ON TELE MONITOR SINUS RHYTHM WITH HEART RATE AT 88. WOUND CARE PROVIDED. GT OUTPUT [id number]. MIDLINE TO PETE PATENT AND INTACT RUNNING IVF ORDERED. NO INSULIN COVERAGE ADMINISTERED THROUGHOUT SHIFT. TURNED/REPOSITIONED Q2H, EXTREMITIES OFFLOADED. SUCTIONED PT PRN. ALL IV MEDS ADMINISTERED. BED IN LOW/LOCKED POSITION WITH CALL LIGHT IN REACH. MADE PT COMFORTABLE THROUGHOUT SHIFT. ENDORSED TO AM SHIFT BLANCA.
[2016-10-18 06:53] VITALS: BP 124/72
--- NOTE | 2016-10-18 07:20 | NUR ---
RN OPENING NOTES RECEIVED PATIENT IN BED, ASLEEP, HEAD OF BED ELEVATED, NO SOB OR DISTRESS NOTED. ON TELE MONITOR SR HEART RATE 85. PATIENT OPEN EYES AND DO NOT FOLLOW COMMANDS AND IS NOT VERBAL. PATIENT IS IN VENTILATOR. IV INTACT AND PATENT. KEPT PATIENT CLEAN AND COMFORTABLE IN BED, CALL LIGHT WITHIN PATIENT REACH, WILL CONTINUE TO MONITOR ACCORDINGLY
[2016-10-18 07:40] LABS: CALCIUM, SERUM 7.4 mg/dL (8.5-10.1); CREATININE 0.7 mg/dL (0.6-1.3)
[2016-10-18 07:43] LABS: POTASSIUM 2.5 mmol/L (3.5-5.1)
--- NOTE | 2016-10-18 07:57 | NUR ---
I CALL DR. DE JESUS AND I LEFT A MESSAGE REGARDING PATIENT'S POTASSIUM 2.5.
[2016-10-18 08:00] VITALS: BP 124/72
[2016-10-18] MEDS: MULTIVITAMIN LIQ 5 ML UDC GT SCH (08:17)
[2016-10-18] MEDS: METFORMIN 500 MG TABLET GT SCH ×2 (08:17→16:00)
[2016-10-18] MEDS: FERROUS SULFATE UDC 300 MG/5 ML UDC JT SCH ×3 (08:17→16:00)
[2016-10-18] MEDS: ACETAMINOPHEN 650 MG/20.3 ML UDC GT SCH (08:17)
[2016-10-18] MEDS: DOCUSATE SODIUM LIQ 100 MG/10 ML UDC JT SCH (08:17)
[2016-10-18] MEDS: PROSOURCE / PROSTAT (PYXIS) 30 ML UDC JT SCH (08:18)
[2016-10-18] MEDS: PANTOPRAZOLE 40 MG/PACK PACK JT SCH (08:18)
[2016-10-18] MEDS: LINAGLIPTIN 5 MG TABLET PEG SCH (08:19)
[2016-10-18] MEDS: ATORVASTATIN 10 MG TABLET PEG SCH (08:19)
[2016-10-18] MEDS: CHOLECALCIFEROL 1,000 UNIT TABLET (VIT D3) JT SCH (08:19)
[2016-10-18] MEDS: INSULIN DETEMIR 100 UNIT/ML CARTRIDGE SQ SCH ×2 (08:39→21:23)
[2016-10-18] MEDS: HEPARIN SODIUM, PORCINE 5000 UNITS/1 ML VIAL SQ SCH (08:42)
[2016-10-18] MEDS: BACITRACIN ZINC OINT PACKET 1 EA PACKET TP SCH ×2 (08:43→16:09)
[2016-10-18] MEDS: MUPIROCIN OINT 2% 22 GM TUBE SCH ×2 (08:43→21:10)
[2016-10-18] MEDS: Z GUARD REMEDY 2 OZ OINT TP SCH (08:44)
[2016-10-18] MEDS: HYDROGEL DRESSING 90 GM TUBE TP SCH (08:46)
[2016-10-18] MEDS: LEVETIRACETAM (500MG) 500 MG in IV NS 0.9% 100 ML IV SCH ×2 (09:02→21:08)
[2016-10-18] MEDS: IV D5/0.45 NACL 1,000 ML IV PRN (09:02)
--- NOTE | 2016-10-18 09:41 | NUR ---
RN NOTES I CALLED DR. DE JESUS AND LEFT A MESSAGE ON HIS CELL PHONE REGARDING CRITICAL LAB POTASSIUM.
--- NOTE | 2016-10-18 10:36 | NUR ---
RN NOTES DR. DE JESUS ORDERED 20MEQ OF POTASSIUM.
[2016-10-18] MEDS ORDERED: IV SET PRIMARY PUMP SET 1 EA INFUS.SET MC ONE (11:25)
[2016-10-18] MEDS: POTASSIUM CL. PREMIX PERIPHER. 50 ML IV SCH ×2 (11:31→12:32)
[2016-10-18] MEDS: VANCOMYCIN 0.75 GM in IV D5W 250 ML IV SCH ×2 (13:05→23:02)
[2016-10-18 16:00] VITALS: BP 117/77
[2016-10-18] MEDS: PIPERACILLIN /TAZOBACTAM 3.375 G in IV D5W 50 ML IV SCH (16:08)
[2016-10-18 17:23] LABS: CALCIUM, SERUM 7.2 mg/dL (8.5-10.1); CREATININE 0.7 mg/dL (0.6-1.3)
[2016-10-18 17:26] LABS: POTASSIUM 2.7 mmol/L (3.5-5.1)
[2016-10-18] MEDS ORDERED: AMPICILLIN 1 GM in IV NS 0.9% 50 ML IV SCH (18:00)
--- NOTE | 2016-10-18 19:05 | NUR ---
I LEFT A MESSAGE ON DOCTOR' S CELL PHONE REGARDING POTASSIUM
--- NOTE | 2016-10-18 19:15 | NUR ---
SENIOR GOVERNMENT PROGRAM ANALYST OPENING NOTES: RECEIVED PT IN BED WITH FAMILY MEMBER () AT BEDSIDE. PT OPENS EYES FROM TIME TO TIME AND IS NONVERBAL. PT IS ON TELE MONITOR: SR 85. WAS ENDORSED FROM AM NURSE THAT J TUBE AND G TUBE ARE BOTH NOT WORKING AND MD IS AWARE. PT IS NPO. PT HAS PETE MIDLINE AND IS PATENT AND INTACT. FLUIDS ARE INFUSING AT D5NS 1,000ML AT 150ML/HR. PT KEPT IN LOCKED, LOWEST POSITION, AND SIDE RAILS X 2 WITH HEAD OF BED AT 35 DEGREES. CALL LIGHT WITHIN PT'S REACH. VENT SETTINGS ARE AT PEEP =0, AC=14, FY=834, AND FIO2%=40%. WAS ENDORSED THAT IS AWARE OF LOW POTASSIUM. NO SIGNS OR SYMPTOMS OF DISTRESS AT THIS TIME. WILL CONTINUE TO MONITOR PT.
--- NOTE | 2016-10-18 19:20 | NUR ---
RN CLOSING NOTES ALL NEEDS PROVIDED, ATTENDED AND ANTICIPATED. ON TELE MONITOR SR HEART RATE OF 85. KEPT PATIENT CLEAN AND COMFORTABLE IN BED, CALL LIGHT WITHIN PATIENT REACH, WILL CONTINUE TO MONITOR ACCORDINGLY. ENDORSED TO NEXT SHIFT RN TO CONTINUE CARE
[2016-10-18 20:00] VITALS: BP 138/70
--- NOTE | 2016-10-18 21:12 | NUR ---
CHIEF BANK EXAMINER NOTES: BLOOD SUGAR WAS 169MG/DL. PT RECEIVED 15 UNITS OF LEVEMIR SQ. WILL CONTINUE TO MONITOR PT.
[2016-10-19] VITALS: BP 123/67
[2016-10-19] MEDS: BLOOD SUGAR DIAGNOSTIC 1 EACH STRIP IN SCH ×5 (00:19→23:32)
[2016-10-19] MEDS: PIPERACILLIN /TAZOBACTAM 3.375 G in IV D5W 50 ML IV SCH ×5 (00:20→23:38)
--- NOTE | 2016-10-19 00:21 | NUR ---
CLINICAL TEAM LEAD NOTES: BLOOD SUGAR WAS 174. PT RECEIVED 2 UNITS OF REGULAR INSULIN. WILL CONTINUE TO MONITOR PT.
[2016-10-19] MEDS: INSULIN REGULAR, HUMAN 100 UNIT/ML 3 ML VIAL SQ PRN ×3 (00:29→23:50)
[2016-10-19] MEDS ORDERED: POTASSIUM CL. PREMIX PERIPHER. 50 ML IV ONE ×2 (01:30→17:00)
--- NOTE | 2016-10-19 01:30 | NUR ---
PULP HOUSE SUPERVISOR NOTES: DR. DE JESUS WAS ON THE FLOOR AND SAW PT. NOTIFIED HIM ABOUT LOW POTASSIUM. GAVE ORDER FOR 2OMEQ POTASSIUM CHLORIDE IV FOR NOW AND ALSO FOR ANOTHER ONE LATER AT 1700 (5PM) AND BMP FOR 1900 (7PM). ALSO TO ENDORSE WITH AM NURSE TO FOLLOW UP ON BOWEL SERIES.
[2016-10-19] MEDS: IPRATROPIUM NEB FS 0.5 MG/2.5 ML AMPUL.NEB IH SCH ×4 (01:39→20:43)
[2016-10-19] MEDS: ALBUTEROL FS 2.5 MG/3 ML VIAL.NEB IH SCH ×4 (01:39→20:43)
[2016-10-19] MEDS ORDERED: POTASSIUM CL. PREMIX PERIPHER. 100 ML ONE (01:47)
[2016-10-19] MEDS ORDERED: POTASSIUM CHLORIDE 10 MEQ/50 ML PREMIXED IVPB FOR PERIPHERAL LINE IV ONE ×4 (02:00→18:00)
[2016-10-19] MEDS ORDERED: SECONDARY IV SET 1 EA INFUS.SET MC ONE (02:04)
[2016-10-19] MEDS: IV D5/0.45 NACL 1,000 ML IV PRN ×2 (02:09→16:36)
[2016-10-19 04:00] VITALS: BP 104/56
[2016-10-19] MEDS: MEROPENEM 500 MG in IV NS 0.9% 50 ML IV SCH ×3 (04:09→21:16)
[2016-10-19] MEDS: DEXAMETHASONE 1 MG TABLET JT SCH ×3 (04:28→20:22)
--- NOTE | 2016-10-19 05:33 | NUR ---
RESTORATION OFFICER NOTES: BLOOD SUGAR WAS 148. NO COVERAGE WAS GIVEN. WILL CONTINUE TO MONITOR PT.
[2016-10-19 07:08] VITALS: BP 125/73
--- NOTE | 2016-10-19 07:10 | NUR ---
PATTERN FILER NOTES: PT IN BED ASLEEP. PT KEPT CLEAN, DRY, AND COMFORTABLE. NO SIGNS OR SYMPTOMS OF DISTRESS NOTED AT THIS TIME. ON TELE AND IS SR 98. BED KEPT IN LOCKED, LOWEST POSITION, AND SIDE RAILS X 2 UP. CALL LIGHT WITHIN PT'S REACH. PT IS ON VENT AND SETTINGS REMAINED THE SAME: PEEP=0, AC=14, YS=213, FIO2=40%. PT HAS J TUBE LEAK AND G TUBE INTERMITTENT SUCTION. G TUBE OUTPUT WAS 100ML AND TRACH OUTPUT WAS 80ML. PT HAS L UPPER ARM MIDLINE AND IS PATENT AND INTACT. FLUIDS ARE INFUSING AT IV D5/0.45%NACL AT 150ML/HR. WILL ENDORSE TO AM NURSE FOR CONTINUITY OF CARE.
--- NOTE | 2016-10-19 07:30 | NUR ---
MANUFACTURING ELECTRICIAN OPENING RECEIVED PATIENT AWAKE TO NAME NON VERBAL. PATIENT ASSISTED TO POSITION OF COMFORT. SKIN CARE COMPLETED ON ABDOMEN; VERY RED AND EXCORIATED. PATIENT HEELS AND ELBOWS OFFLOADED. VENT SETTING ORDERED NO SOB DIFFICULTY BREATHING. NO S/S PAIN AT THIS TIME. TELE NSR 86. CALL LIGHT IN REACH, BED LOWERED AND LOCKED, RAILS UPX3 FOR SAFETY AND BED ALARM ON. WILL ROUND Q2H OR LESS PER NEEDS AND TURN Q2H
[2016-10-19 07:51] LABS: BASOPHILS % (AUTO) 0.4 % (0.0-2.0); EOSINOPHILS % (AUTO) 0.3 % (0.0-6.0); HEMATOCRIT 33 % (39-51); HEMOGLOBIN 10.7 g/dL (13.5-17.5); LYMPHOCYTES # (AUTO) 1.7 /CMM (0.8-4.8); LYMPHOCYTES % (AUTO) 18.5 % (20.0-44.0); MEAN CORPUSCULAR HEMOGLOBIN 29 PG (26.0-33.0); MEAN CORPUSCULAR HGB CONC 33 g/dl (31.0-36.0); MEAN CORPUSCULAR VOLUME 89 fL (80-96); MONOCYTES # (AUTO) 0.5 /CMM (0.1-1.30); MONOCYTES % (AUTO) 5.9 % (2.0-12.0); NEUTROPHILS % (AUTO) 74.9 % (43.0-81.0); RDW COEFFICIENT OF VARIATION 15.8 (11.5-15.0); WHITE BLOOD COUNT (AUTO) 9.3 K/uL (4.3-11.0)
[2016-10-19 07:57] LABS: ALBUMIN 1.5 g/dL (3.4-5.0); BILIRUBIN,TOTAL 0.9 mg/dL (0.2-1.0); CALCIUM, SERUM 7.2 mg/dL (8.5-10.1); CREATININE 0.7 mg/dL (0.6-1.3); TOTAL PROTEIN, SERUM 5.7 g/dL (6.4-8.2)
[2016-10-19 08:00] VITALS: BP 127/70
[2016-10-19 08:04] LABS: PLATELET COUNT (AUTO) 165 /CMM (150-450)
[2016-10-19] MEDS: BACITRACIN ZINC OINT PACKET 1 EA PACKET TP SCH ×2 (08:19→16:56)
[2016-10-19] MEDS: MUPIROCIN OINT 2% 22 GM TUBE SCH ×2 (08:19→20:22)
[2016-10-19] MEDS: Z GUARD REMEDY 2 OZ OINT TP SCH (08:20)
[2016-10-19] MEDS: INSULIN DETEMIR 100 UNIT/ML CARTRIDGE SQ SCH ×2 (08:27→20:36)
--- NOTE | 2016-10-19 08:30 | NUR ---
HOSPICE MASSAGE THERAPIST NOTES CALLED PHARMACY NOTIFIED GHULAM WE NEED HYDROGEL FOR PATIENT
[2016-10-19] MEDS: LEVETIRACETAM (500MG) 500 MG in IV NS 0.9% 100 ML IV SCH ×2 (08:46→20:21)
[2016-10-19] MEDS: PROSOURCE / PROSTAT (PYXIS) 30 ML UDC JT SCH (09:00)
[2016-10-19] MEDS: PANTOPRAZOLE 40 MG/PACK PACK JT SCH (09:00)
[2016-10-19] MEDS: ATORVASTATIN 10 MG TABLET PEG SCH (09:00)
[2016-10-19] MEDS: CHOLECALCIFEROL 1,000 UNIT TABLET (VIT D3) JT SCH (09:00)
[2016-10-19] MEDS: FERROUS SULFATE UDC 300 MG/5 ML UDC JT SCH ×3 (09:00→16:32)
[2016-10-19] MEDS: METFORMIN 500 MG TABLET GT SCH ×2 (09:00→16:32)
[2016-10-19] MEDS: MULTIVITAMIN LIQ 5 ML UDC GT SCH (09:00)
[2016-10-19] MEDS: DOCUSATE SODIUM LIQ 100 MG/10 ML UDC JT SCH (09:00)
[2016-10-19] MEDS: LINAGLIPTIN 5 MG TABLET PEG SCH (09:00)
[2016-10-19] MEDS: ACETAMINOPHEN 650 MG/20.3 ML UDC GT SCH (09:00)
--- NOTE | 2016-10-19 09:19 | NUR ---
RUSTIC TERRAZZO SETTER NOTES CAREGIVER AT BEDSIDE. NOT ADHERING TO ISOLATION PRECAUTIONS. EDUCATED AND UPDATED ON ISOLATION TYPES AND MODES OF TRANSMISSION. CAREGIVER STATED UNDERSTANDING. EDUCATED ON HAND WASHING
--- NOTE | 2016-10-19 09:22 | NUR ---
SKI LIFT OPERATOR NOTES CONFIRMED WITH TERRELL RAMIREZ IS SCHEDULED FOR SBFT TODAY
--- NOTE | 2016-10-19 09:58 | NUR ---
JELLY FILTER TENDER NOTES CONFIRMED WITH PHARMACY IF VANCO TROUGH NEEDS TO BE COMPLETED. PER PHARMACY NOT NEEDED. RENAL FX STABLE OK TO GIVE
[2016-10-19] MEDS: VANCOMYCIN 0.75 GM in IV D5W 250 ML IV SCH ×2 (10:03→22:33)
[2016-10-19] MEDS: Z GUARD REMEDY 2 OZ OINT TP PRN ×2 (11:14→16:36)
[2016-10-19] MEDS: HYDROGEL DRESSING 90 GM TUBE TP SCH (12:22)
--- NOTE | 2016-10-19 12:29 | NUR ---
DRIER TENDER NOTES CAREGIVER CONTINUING TO PUT DRESSINGS OVER THE GTUBE AND J TUBE SITES THAT WILL BECOME SOAKED AND SIT ON THE SKIN. EDUCATED CAREGIVER THIS WILL FURTHER BREAKDOWN THE SKIN AND WE NEED TO JUST CONTINUE WITH WOUND CARE AND MONITOR. CAREGIVER EDUCATED AGAIN ON ISOLATION PRECAUTIONS AND OBSERVATION
[2016-10-19] MEDS ORDERED: DIATR MEGLU/DIATRIZOATE SODIUM 120 ML BOTTLE (GASTROGRAPHIN) ONE (13:00)
--- NOTE | 2016-10-19 15:25 | NUR ---
INSURANCE HEALTHCARE CONSULTANT NOTES PATIENT X2 WATERY DIARRHEA. SAMPLE COLLECTED FOR LAB PICKUP FOR CDIFF CHECK. PATIENT SKIN CLEANSED GUARD APPLIED AND WOUND CARE COMPLETED
--- NOTE | 2016-10-19 15:28 | NUR ---
TRANSFER AND PUMPHOUSE OPERATOR NOTES PER DR CALVERT HE WILL BE BY TO SEE THE PATIENT AND GIVE AN UPDATE
[2016-10-19 16:00] VITALS: BP 131/71
[2016-10-19] MEDS ORDERED: IV SET PRIMARY PUMP SET 1 EA INFUS.SET MC ONE (16:31)
--- NOTE | 2016-10-19 17:42 | NUR ---
DATA REPORTING ANALYST NOTES BLOOD SUGAR LOWERED DUE TO NEEDING TO PAUSE IVF TO GIVE PATIENT BED BATH AND COMPLETE WOUND AND SKIN CARE. IVF RESUMED
--- NOTE | 2016-10-19 18:30 | NUR ---
RT RECEIVED PT TRACH'D WITH PORTEX #8 CUFFED ON [facility] VENT WITH SETTINGS PER MD ORDER. ONCOLOGY REP SPECIALIST DONE. BILAT RHONCHI BREATH SOUNDS. SUCTIONED SMALL AMOUNTS OF THICK, WHITE SECRETIONS. TX'S GIVEN. NO ADVERSE EFFECTS OBSERVED. TRACH SECURE AND AIRWAY PATENT. SPARE TRACH AND AMBU BAG AT BEDSIDE. ALARMS ON AND WORKING PROPERLY. VENT PLUGGED INTO RED OUTLET. NO SOB OR SIGNS OF DISTRESS NOTED AT THIS TIME. WILL CONTINUE TO MONITOR THE PATIENT FOR ANY BLANCA. Addendum: 10/19/16 at 1831 by BERNIE HALL RT Amended: Links added.
--- NOTE | 2016-10-19 18:47 | NUR ---
MAINTENANCE PAINTER APPRENTICE CLOSING PATIENT STABLE NO CHANGES. SKIN CARE COMPLETED PRN AND EDUCATED ON SKIN CARE AND WOUND MANAGEMENT. PATIENT TURNED Q2H AND HEELS AND ELBOWS OFFLOADED THROUGHOUT THE DAY. IVF RUNNING ORDERED. PER DR CALVERT OK TO RESUME TUBE FEEDINGS AND CHANGE PROTONIX TO IV. PATIENT AT BEDSIDE AND UPDATED ON CARE PLAN. WILL ENDORSE CARE TO RN FOR BLANCA. RAILS UPX3 FOR SAFETY, BED ALARM ON, RAILS UPX3 FOR SAFETY.
[2016-10-19 19:17] LABS: CALCIUM, SERUM 7.4 mg/dL (8.5-10.1); CREATININE 0.8 mg/dL (0.6-1.3)
--- NOTE | 2016-10-19 19:25 | NUR ---
MULTIPLE PRESSURE RIVETER OPERATOR NOTES: RECEIVED PT IN BED LAYING DOWN WITH AT BEDSIDE. WAS ENDORSED FROM AM NURSE TO KEEP J TUBE AND G TUBE OPEN TO AIR. PT IS ON TELE AND IS AT NORMAL SR. FEEDING IS TO BE STARTED ON GLYTROL AT 55ML/HR VIA J TUBE. PT HAS L UPPER ARM MIDLINE AND FLUIDS ARE RUNNING AT IV D5 1/2 NS 1,000ML AT 150ML/HR. PT OPENS EYE AND IS NONVERBAL. NO SIGNS OR SYMPTOMS OF DISTRESS AT THIS TIME. PT KEPT CLEAN, DRY, AND COMFORTABLE. BED KEPT IN LOCKED, LOWEST POSITION, AND SIDE RAILS X2 UP. WILL CONTINUE TO MONITOR PT.
[2016-10-19 20:00] VITALS: BP 121/73
[2016-10-19] MEDS ORDERED: PANTOPRAZOLE 40 MG VIAL IV SCH (20:00)
--- NOTE | 2016-10-19 20:20 | NUR ---
GROUND EQUIPMENT MECHANIC NOTES: BLOOD SUGAR WAS 98MG/DL. NO INSULIN WAS GIVEN. WILL CONTINUE TO MONITOR PT.
--- NOTE | 2016-10-19 23:34 | NUR ---
GEOPHYSICAL OBSERVER NOTES: BLOOD SUGAR WAS 131. NO COVERAGE WAS GIVEN. WILL CONTINUE TO MONITOR PT.
[2016-10-20] VITALS: BP 124/71
--- NOTE | 2016-10-20 01:24 | NUR ---
FINISHER CARD TENDER NOTES: PT WAS SEEN BY DR. DE JESUS. CONFIRMED GLYTROL TO BE CONTINUED AT 55ML/HR. WILL CONTINUE TO MONITOR PT.
[2016-10-20] MEDS: ALBUTEROL FS 2.5 MG/3 ML VIAL.NEB IH SCH ×3 (02:24→13:40)
[2016-10-20] MEDS: IPRATROPIUM NEB FS 0.5 MG/2.5 ML AMPUL.NEB IH SCH ×3 (02:24→13:40)
[2016-10-20] MEDS: IV D5/0.45 NACL 1,000 ML IV PRN (03:04)
[2016-10-20 04:00] VITALS: BP 141/89
[2016-10-20] MEDS: MEROPENEM 500 MG in IV NS 0.9% 50 ML IV SCH ×2 (04:04→12:24)
[2016-10-20] MEDS: DEXAMETHASONE 1 MG TABLET JT SCH ×2 (05:00→12:46)
--- NOTE | 2016-10-20 05:00 | NUR ---
LEARNING SERVICES COORDINATOR NOTES: DID NOT ADMINISTER DECADRON PER AM NURSE ENDORSEMENT. ORDER WAS PER DR. CALVERT TO CONTINUE FEEDING THROUGH J TUBE. WILL HAVE AM NURSE FOLLOW UP.
[2016-10-20] MEDS: BLOOD SUGAR DIAGNOSTIC 1 EACH STRIP IN SCH ×3 (05:05→17:37)
[2016-10-20] MEDS: PIPERACILLIN /TAZOBACTAM 3.375 G in IV D5W 50 ML IV SCH ×2 (05:05→12:25)
--- NOTE | 2016-10-20 05:06 | NUR ---
ICE CREAM SHOP ASSOCIATE NOTES: BLOOD SUGAR WAS 131. NO COVERAGE WAS GIVEN. WILL CONTINUE TO MONITOR,
[2016-10-20 07:01] VITALS: BP 139/76
--- NOTE | 2016-10-20 07:30 | NUR ---
SURGICAL GARMENT INSPECTOR CLOSING NOTES: ALL NEEDS WERE ATTENDED. PT KEPT CLEAN, DRY, AND COMFORTABLE. BED KEPT IN LOCKED, LOWEST POSITION, AND SIDE RAILS X 2 UP. PT HAS L UPPER ARM MIDLINE AND IS PATENT AND INTACT. FLUIDS ARE INFUSING AT D5 1/2 NS 1,000ML AT 150ML/HR. PT IS ON GLYTROL AT 55ML/HR. VENT SETTINGS ARE AT PEEP= 0, AC=14, FY=375, AND FI02=40%. G TUBE SUCTION OUTPUT WAS 150ML AND TRACH OUTPUT WAS 150 ML. PT IS ON TELE MONITOR AND IS SR 98. ENDORSED TO AM NURSE FOR CONTINUITY OF CARE. PT IS ON TELE MONITOR AND IS SR 98.
[2016-10-20 07:33] LABS: BASOPHILS % (AUTO) 0.3 % (0.0-2.0); EOSINOPHILS % (AUTO) 0.1 % (0.0-6.0); HEMATOCRIT 29 % (39-51); HEMOGLOBIN 9.6 g/dL (13.5-17.5); LYMPHOCYTES % (AUTO) 9.5 % (20.0-44.0); MEAN CORPUSCULAR HEMOGLOBIN 30 PG (26.0-33.0); MEAN CORPUSCULAR HGB CONC 33 g/dl (31.0-36.0); MEAN CORPUSCULAR VOLUME 89 fL (80-96); MONOCYTES # (AUTO) 0.5 /CMM (0.1-1.30); MONOCYTES % (AUTO) 4.6 % (2.0-12.0); NEUTROPHILS # (AUTO) 8.8 /CMM (1.8-8.9); NEUTROPHILS % (AUTO) 85.5 % (43.0-81.0); PLATELET COUNT (AUTO) 161 /CMM (150-450); RDW COEFFICIENT OF VARIATION 15.7 (11.5-15.0); RED BLOOD CELL COUNT(AUTO) 3.27 MIL/uL (4.5-6.0); WHITE BLOOD COUNT (AUTO) 10.3 K/uL (4.3-11.0)
--- NOTE | 2016-10-20 07:45 | NUR ---
MS RN RECEIVED PATIENT, NON VERBAL PATIENT, OPENS EYES ONLY, HAS G TUBE W/ FEEDING AT 55ML/HOUR, TOLERATED FAIRLY, J TUBE TO INTERMITTENT SUCTION DRAINING TO GREENISH YELLOW OUTPUT. NOTED TO HAVE MULTIPLE EXCORIATIONS AT ABD SITE. PATIENT W/ TRACT. CONNECTED TO VENT NO SOB NOTED. WILL MONITOR PATIENT.
[2016-10-20 08:00] VITALS: BP 139/76
[2016-10-20 08:12] LABS: CALCIUM, SERUM 7.1 mg/dL (8.5-10.1); CREATININE 0.7 mg/dL (0.6-1.3)
[2016-10-20 08:31] LABS: POTASSIUM 2.7 mmol/L (3.5-5.1)
[2016-10-20] MEDS: LEVETIRACETAM (500MG) 500 MG in IV NS 0.9% 100 ML IV SCH (09:48)
[2016-10-20] MEDS: PROSOURCE / PROSTAT (PYXIS) 30 ML UDC JT SCH (09:55)
[2016-10-20] MEDS: LINAGLIPTIN 5 MG TABLET PEG SCH (09:55)
[2016-10-20] MEDS: MULTIVITAMIN LIQ 5 ML UDC GT SCH (09:55)
[2016-10-20] MEDS: DOCUSATE SODIUM LIQ 100 MG/10 ML UDC JT SCH (09:55)
[2016-10-20] MEDS: FERROUS SULFATE UDC 300 MG/5 ML UDC JT SCH ×3 (09:55→17:20)
[2016-10-20] MEDS: ATORVASTATIN 10 MG TABLET PEG SCH (09:56)
[2016-10-20] MEDS: METFORMIN 500 MG TABLET GT SCH ×2 (09:56→17:20)
[2016-10-20] MEDS: CHOLECALCIFEROL 1,000 UNIT TABLET (VIT D3) JT SCH (09:56)
[2016-10-20] MEDS: ACETAMINOPHEN 650 MG/20.3 ML UDC GT SCH (10:00)
--- NOTE | 2016-10-20 10:00 | NUR ---
MS RN GAVE MEDS VIA G TUBE FEEDING, TOLERATED FAIRLY, NO RESIDUAL NOTED.
[2016-10-20] MEDS: HYDROGEL DRESSING 90 GM TUBE TP SCH (10:02)
[2016-10-20] MEDS: Z GUARD REMEDY 2 OZ OINT TP SCH (10:02)
[2016-10-20] MEDS: BACITRACIN ZINC OINT PACKET 1 EA PACKET TP SCH ×2 (10:02→17:38)
[2016-10-20] MEDS: MUPIROCIN OINT 2% 22 GM TUBE SCH (10:06)
[2016-10-20] MEDS: INSULIN DETEMIR 100 UNIT/ML CARTRIDGE SQ SCH (10:14)
[2016-10-20] MEDS: VANCOMYCIN 0.75 GM in IV D5W 250 ML IV SCH (11:00)
[2016-10-20 12:00] VITALS: BP 150/70
--- NOTE | 2016-10-20 12:00 | NUR ---
MS RN BS - 203 - 3 UNITS OF REGULAR INSULIN NOTED.
[2016-10-20] MEDS: INSULIN REGULAR, HUMAN 100 UNIT/ML 3 ML VIAL SQ PRN (12:49)
[2016-10-20 16:00] VITALS: BP 128/68
--- NOTE | 2016-10-20 16:00 | NUR ---
MS RN ON BED, NO DISTRESS NOTED, WILL BE DISCHARGE SOON.
[2016-10-20] MEDS ORDERED: POTASSIUM CHLORIDE 20 MEQ TAB.PRT.SR PO SCH (16:30)
[2016-10-20] MEDS ORDERED: COD LIVER OIL/ZINC OXIDE 120 GM TUBE TP SCH (17:00)
--- NOTE | 2016-10-20 17:30 | NUR ---
MS OLVERA BS -94 - NO COVERAGE GIVEN.
[2016-10-20] MEDS ORDERED: VANCOMYCIN 0.75 GM in IV D5W 250 ML IV SCH (18:00)
--- NOTE | 2016-10-20 18:20 | NUR ---
MS RN PATIENT WAS TRANSFERRED TO [facility], REPORT GIVEN TO MIGUEL OLVERA, NO DISTRESS NOTED, ENDORSED TO GIVE KDUR GT 40 MEQ BID, TO BE FINISHED 10/22/16, LAST DOSE AT AT 900 AM.
== END 2016-10-20 19:00 | DRG 394 ==
LOC: ER 14:12 → TELE 16:46 → UNDODISIN 10-20 19:00
PROVIDERS: ADMIT Internal Medicine Rheumatology; ATTEND Internal Medicine Rheumatology
PROC: 5A1955Z Respiratory Ventilation, Greater than 96 Consecutive Hours (ICD-10-PCS; principal; 2016-10-11)
PROC: 0DH63UZ Insertion of Feeding Device into Stomach, Percutaneous Approach (ICD-10-PCS; 2016-10-16)
DX: Z43.1 Encounter for attention to gastrostomy (principal); Z99.11 Dependence on respirator [ventilator] status; J96.11 Chronic respiratory failure with hypoxia; Y83.3 Surgical operation with formation of external stoma as the cause of abnormal reaction of the patient, or of later complication, without mention of misadventure at the time of the procedure; Y92.009 Unspecified place in unspecified non-institutional (private) residence as the place of occurrence of the external cause; R13.10 Dysphagia, unspecified; K21.9 Gastro-esophageal reflux disease without esophagitis; Z93.0 Tracheostomy status; E55.9 Vitamin D deficiency, unspecified; E11.9 Type 2 diabetes mellitus without complications; E78.5 Hyperlipidemia, unspecified; Z95.1 Presence of aortocoronary bypass graft; E87.6 Hypokalemia; G40.909 Epilepsy, unspecified, not intractable, without status epilepticus; Z86.73 Personal history of transient ischemic attack (TIA), and cerebral infarction without residual deficits; Z79.84 Long term (current) use of oral hypoglycemic drugs
CPT/HCPCS: 31720; 36415; 36569; 43246; 71010-TC; 74000-TC; 74250-TC; 80048-TC; 80053-TC; 80076-TC; 80202-TC; 82962-TC; 83735-TC; 85025-TC; 85730-TC; 87070-TC; 87081-TC; 87186-TC; 94002-TC; 94003-TC; 94762-TC; 99082-TC; A4216; A4606; A6248; A6253; A6402; A6403; A6407; A7526; C9113; J0290; J0690; J0696; J0743; J1644; J1815; J1953; J2185; J2543; J2704; J3370; J3475; J3480; J3490; J7030; J7040; J7050; J7060; J8540; Q9963; Z7610

== ENCOUNTER 2016-11-11 17:46 | Inpatient (IN) | payer MEDICARE, MEDICAID ==
[~2016-11-11] VITALS: Ht 165.1 cm; Wt 63.0 kg
[~2016-11-11 17:46] MED LIST changes: -ACET-2605 JT; -AMLO5TAB2 JT; +ATOR10TA JT; +CHOL50004 JT; -CLIN300C97 PO; +CRAN3875 JT; +DEXA2TAB JT; -EMPA1TAB JT; -ERGO50003 JT; +HEPA500014 SQ; +INSU100V10 SQ; +LEVO500T15 JT; +LINA5TAB JT; +METF10002 JT; -METF500T4 JT; +OMEP20CA10 JT; -PANT40SU2 JT; -PIOG30TA2 JT; -SUCR1ORA2 JT
--- NOTE | 2016-11-11 17:46 | NUR ---
BIB RA C/O CLOGGED J-TUBE SINCE THIS MORNING. NAD NOTED. J TUBE PORT UNABLE TO FLUSH OR ASPIRATE AT THIS TIME. DR GRIMALDO AT BEDSIDE MADE AWARE. PT PLACED ON MONITOR. NO ACTIVE BLEEDING ON SITE, SOME DRAINAGE NOTED.
[2016-11-11] MEDS ORDERED: SULF1TAB48 JT (18:16)
[2016-11-11] MEDS ORDERED: ZINC220C8 JT (18:16)
[2016-11-11] MEDS ORDERED: ASCO500S2 JT (18:16)
[2016-11-11] MEDS ORDERED: CALC500T52 JT (18:16)
[2016-11-11] MEDS ORDERED: CHLO15MO2 MM (18:35)
[2016-11-11] MEDS ORDERED: PANT40SU2 GT (18:35)
[2016-11-11] MEDS ORDERED: INSU100I19 SQ (18:35)
[2016-11-11] MEDS ORDERED: METF500T4 JT (18:35)
[2016-11-11] MEDS ORDERED: LEVOFLOXACIN 750 MG /D5W 150ML 150 ML IV ONE ×2 (19:00→19:23)
[2016-11-11] MEDS ORDERED: PIPERACILLIN /TAZOBACTAM 3.375 G in IV D5W 50 ML IV ONE (19:00)
[2016-11-11] MEDS ORDERED: PIPERACILLIN /TAZOBACTAM 3.375 G VIAL IV ONE ×2 (19:23→23:06)
[2016-11-11] MEDS ORDERED: IV SET PRIMARY PUMP SET 1 EA INFUS.SET MC ONE ×2 (19:24→23:38)
--- NOTE | 2016-11-11 19:33 | NUR ---
PATIENT WILL BE ADMITTED TO BED 317-1 NURSE WILL BE RUSS.
[2016-11-11 19:37] LABS: CALCIUM, SERUM 8.5 mg/dL (8.5-10.1); CREATININE 0.6 mg/dL (0.6-1.3); POTASSIUM 3.8 mmol/L (3.5-5.1)
[2016-11-11 19:39] LABS: BASOPHILS # (AUTO) 0.1 /CMM (0.0-0.2); BASOPHILS % (AUTO) 0.3 % (0.0-2.0); EOSINOPHILS # (AUTO) 0.1 /CMM (0.0-0.7); EOSINOPHILS % (AUTO) 0.3 % (0.0-6.0); HEMATOCRIT 46 % (39-51); HEMOGLOBIN 15.3 g/dL (13.5-17.5); LYMPHOCYTES # (AUTO) 3.3 /CMM (0.8-4.8); LYMPHOCYTES % (AUTO) 14.9 % (20.0-44.0); MEAN CORPUSCULAR HEMOGLOBIN 30 PG (26.0-33.0); MEAN CORPUSCULAR HGB CONC 34 g/dl (31.0-36.0); MEAN CORPUSCULAR VOLUME 89 fL (80-96); MONOCYTES # (AUTO) 0.1 /CMM (0.1-1.30); MONOCYTES % (AUTO) 0.5 % (2.0-12.0); NEUTROPHILS # (AUTO) 18.5 /CMM (1.8-8.9); PLATELET COUNT (AUTO) 134 /CMM (150-450); RDW COEFFICIENT OF VARIATION 17.3 (11.5-15.0); RED BLOOD CELL COUNT(AUTO) 5.15 MIL/uL (4.5-6.0)
[2016-11-11 19:40] LABS: INR 2.42 (0.87-1.13); PROTHROMBIN TIME 26.3 SECS (9.5-12.7)
--- NOTE | 2016-11-11 19:41 | NUR ---
URINE COLLECTED. CALLED LAB FOR STORY WRITER.
[2016-11-11 19:46] LABS: TROPONIN I < 0.017 ng/mL (0.00-0.056)
[2016-11-11 19:53] LABS: APPEARANCE,URINE Clear (CLEAR); BILIRUBIN,URINE Negative (NEGATIVE); BLOOD, URINE Trace-intact Ery/uL (NEGATIVE); COLOR,URINE Yellow (YELLOW); KETONES,URINE Negative (NEGATIVE); LEUKOCYTE ESTERASE ,URINE Trace (NEGATIVE); NITRITE, URINE Negative (NEGATIVE); PROTEIN,URINE Negative (NEGATIVE); UGLUCOSE Negative (NEGATIVE); UROBILINOGEN,URINE 0.2 EU/dL (0.2)
--- NOTE | 2016-11-11 19:54 | NUR ---
REPORT GIVEN TO MAY PATEL FOR TELE BED 317.
--- NOTE | 2016-11-11 19:57 | NUR ---
PAGED DR DE EJSUS.
[2016-11-11] MEDS ORDERED: IV NS 0.9% 500 ML IV ONE (20:03)
[2016-11-11] MEDS ORDERED: IV SET PRIMARY 1 EA INFUS.SET MC ONE (20:03)
[2016-11-11] MEDS ORDERED: IV NS 0.9% 2,000 ML ONE (20:03)
[2016-11-11 20:06] LABS: BACTERIA,URINE Few /HPF (None Seen); SQUAMOUS EPITHELIAL CELL,UR Few /HPF (None Seen)
[2016-11-11] MEDS ORDERED: IV NS 0.9% 1,000 ML BAG IV ONE (20:30)
[2016-11-11 20:40] VITALS: BP 96/71
--- NOTE | 2016-11-11 20:55 | NUR ---
DR GRIMALDO ON THE PHONE WITH DR LAGOS.
[2016-11-11 21:01] LABS: BAND % (MANUAL) 7 % (0.0-5.0); BASOPHILS % (MANUAL) 0 % (0.0-2.0); EOSINOPHILS % (MANUAL) 0 % (0-4); LYMPHOCYTES % (MANUAL) 19 % (16-48); MONOCYTES % (MANUAL) 4 % (0-11.0); NEUTROPHILS % (MANUAL) 70 (42-76)
[2016-11-11] MEDS ORDERED: IV NS 0.9% 1,000 ML IV PRN (21:03)
[2016-11-11] MEDS ORDERED: IV NS 0.9% 1,000 ML ONE ×2 (21:11→23:44)
--- NOTE | 2016-11-11 21:15 | NUR ---
TELE/RN NOTES RECEIVED PT. FROM ER VIA GURNEY. PT IS NONVERBAL WITH EYES OPEN. PT. HAS TRACH PRESENT AND INTACT AND IS VENT/TRACH DEPENDENT. CURRENT VENT SETTINGS = AC 14, TV 550, FIO2 40, PEEP 0. NO SOB, RESPIRATORY DISTRESS OR S/S OF PAIN NOTED AT THIS TIME. PLACED EXTERNAL HAT RENOVATOR ON PT. CURRENT RHYTHM = SINUS RHYTHM HR 84. PT. WITH LEFT UPPER ARM MIDLINE PRESENT, PATENT AND INTACT ADMINISTERING TO PT. IV FLUIDS OF NS FOR SEPSIS FLUID CHALLENGE. PT. HAS ALMOST FULL BAG OF IV LEVAQUIN 750MG FROM IV HANGING, IT HAD BEEN STOPPED. PER RN TASHA LEVAQUIN WAS STOPPED IN ER BECAUSE IT CAN LOWER PT. BLOOD PRESSURE. PT. WITH J-TUBE PRESENT LEAKING MODERATE AMOUNT OF GREEN DRAINAGE AT INSERTION SITE. PT. PRESENT AT BEDSIDE. BED IN LOWEST POSITION, CALL LIGHT WITHIN REACH, WILL CONTINUE TO MONITOR.
[2016-11-11] MEDS ORDERED: DIATR MEGLU/DIATRIZOATE SODIUM 30 ML BOTTLE (GASTROGRAPHIN) ONE (21:19)
--- NOTE | 2016-11-11 21:22 | NUR ---
PT TRANSFERED PER ACLS. IVF TRANFUSING ON ADMISSION. MAY GRANT.
[2016-11-11] MEDS ORDERED: LEVOFLOXACIN 500 MG /D5W 100ML 100 ML IV SCH (21:30)
[2016-11-11] MEDS ORDERED: MAGNESIUM HYDROXIDE 30 ML UDC PO PRN (21:30)
[2016-11-11] MEDS ORDERED: ALBUTEROL FS 2.5 MG/3 ML VIAL.NEB IH PRN (21:30)
[2016-11-11] MEDS ORDERED: IPRATROPIUM NEB FS 0.5 MG/2.5 ML AMPUL.NEB IH PRN (21:30)
[2016-11-11] MEDS ORDERED: NA PHOS,M-B/NA PHOS,DI-BA 1 EA ENEMA RC PRN (21:30)
[2016-11-11] MEDS ORDERED: ENOXAPARIN SODIUM 40 MG/0.4 ML DISP.SYRIN SQ SCH (21:30)
[2016-11-11] MEDS ORDERED: ZOLPIDEM TARTRATE 5 MG TABLET PO PRN (21:30)
[2016-11-11] MEDS ORDERED: MAG HYDROX/AL HYDROX/SIMETH 30 ML UDC PO PRN (21:30)
[2016-11-11] MEDS ORDERED: LEVETIRACETAM (500MG) 500 MG in IV NS 0.9% 100 ML IV SCH (21:30)
[2016-11-11] MEDS ORDERED: ONDANSETRON HCL/PF 4 MG/2 ML VIAL IVP PRN (21:30)
[2016-11-11] MEDS ORDERED: ACETAMINOPHEN 325 MG TABLET PO PRN (21:30)
[2016-11-11] MEDS ORDERED: LEVETIRACETAM (500MG) 500 MG/5 ML VIAL IV ONE (23:00)
[2016-11-11] MEDS ORDERED: ENOXAPARIN SODIUM 40 MG/0.4 ML DISP.SYRIN SQ ONE (23:06)
[2016-11-11] MEDS ORDERED: IV NS 0.9% 100 ML IV ONE (23:07)
[2016-11-11] MEDS ORDERED: IV D5W 50 ML IV ONE (23:07)
[2016-11-11] MEDS ORDERED: SECONDARY IV SET 1 EA INFUS.SET MC ONE (23:24)
[2016-11-12] VITALS (8 sets, daily range): BP systolic 75–128; BP diastolic 41–84
[2016-11-12] MEDS ORDERED: SECONDARY IV SET 1 EA INFUS.SET MC ONE ×4 (00:38→22:13)
[2016-11-12] MEDS: PIPERACILLIN /TAZOBACTAM 3.375 G in IV D5W 100 ML IV SCH ×2 (00:43→06:22)
--- NOTE | 2016-11-12 01:11 | NUR ---
TELE/RN NOTES SPOKE WITH MD LAGOS AND NOTIFIED HIM OF RESULTS FROM PT. XRAY ABDOMEN WITH CONTRAST AND PT. MOST RECENT LACTIC ACID RESULT OF 2.2. PER MD LAGOS NEW ORDERS: STAT CT OF ABDOMEN WITH CONTRAST. CLARIFIED WITH DR. LAGOS IF HE WANTED LOVENOX ADMINISTERED TO PT. CURRENT PLATELETS ARE 134, PT 26.[address] LAGOS HOLD LOVENOX FOR NOW. WILL CONTINUE TO MONITOR.
[2016-11-12 01:25] LABS: BILIRUBIN,DIRECT 0.2 mg/dL (0.0-0.2); BILIRUBIN,TOTAL 0.5 mg/dL (0.2-1.0)
[2016-11-12] MEDS: IPRATROPIUM NEB FS 0.5 MG/2.5 ML AMPUL.NEB IH SCH ×4 (01:30→20:21)
[2016-11-12] MEDS: ALBUTEROL FS 2.5 MG/3 ML VIAL.NEB IH SCH ×4 (01:30→20:21)
--- NOTE | 2016-11-12 01:30 | NUR ---
TELE/RN NOTES CALLED PT. LIUDMILA TO GET CONSENT FOR PT. TO HAVE STAT CT OF ABDOMEN WITH CONTRAST TO RULE OUT SMALL BOWEL OBSTRUCTION. PT. LIUDMILA GAVE CONSENT. PER PT. PT. HAS NO KNOWN ALLERGIES. PT. CONSENT WITNESSED BY 2ND RN I[place]. WILL CONTINUE TO MONITOR.
[2016-11-12] MEDS ORDERED: IV NS 0.9% 250 ML IV ONE ×2 (03:05→09:14)
[2016-11-12] MEDS ORDERED: IOHEXOL-300 100 ML VIAL IV ONE (03:05)
[2016-11-12] MEDS ORDERED: IV D5W 50 ML IV ONE (05:10)
[2016-11-12] MEDS ORDERED: PIPERACILLIN /TAZOBACTAM 3.375 G VIAL IV ONE (05:10)
[2016-11-12 06:48] LABS: HEMATOCRIT 39 % (39-51); HEMOGLOBIN 12.8 g/dL (13.5-17.5); MEAN CORPUSCULAR HEMOGLOBIN 30 PG (26.0-33.0); MEAN CORPUSCULAR HGB CONC 33 g/dl (31.0-36.0); MEAN CORPUSCULAR VOLUME 90 fL (80-96); PLATELET COUNT (AUTO) 145 /CMM (150-450); RDW COEFFICIENT OF VARIATION 17.1 (11.5-15.0); RED BLOOD CELL COUNT(AUTO) 4.32 MIL/uL (4.5-6.0); WHITE BLOOD COUNT (AUTO) 17.3 K/uL (4.3-11.0)
[2016-11-12 06:49] LABS: BASOPHILS % (AUTO) 0.2 % (0.0-2.0); LYMPHOCYTES # (AUTO) 1.4 /CMM (0.8-4.8); LYMPHOCYTES % (AUTO) 7.8 % (20.0-44.0); MONOCYTES # (AUTO) 0.5 /CMM (0.1-1.30); NEUTROPHILS # (AUTO) 15.4 /CMM (1.8-8.9)
[2016-11-12 06:58] LABS: ALBUMIN 2.1 g/dL (3.4-5.0); BILIRUBIN,TOTAL 0.5 mg/dL (0.2-1.0); CALCIUM, SERUM 7.3 mg/dL (8.5-10.1); CREATININE 0.4 mg/dL (0.6-1.3); MAGNESIUM 1.8 mg/dL (1.8-2.4); PHOSPHORUS 3.4 mg/dL (2.5-4.9); POTASSIUM 3.4 mmol/L (3.5-5.1); TOTAL PROTEIN, SERUM 5.9 g/dL (6.4-8.2)
[2016-11-12 06:59] LABS: INR 2.75 (0.87-1.13); PROTHROMBIN TIME 31.4 SECS (9.5-12.7)
[2016-11-12] MEDS ORDERED: DEXTROSE 50%-WATER 50 ML DISP.SYRIN ONE (07:10)
--- NOTE | 2016-11-12 07:15 | NUR ---
RN INITIAL NOTE PT RECEIVED IN BED. PT IS OBTUNDED, NON-VERBAL. OPENS EYES. PT HAS TRACH, VENT SETTINGS FOLLOWS: AC-14, TV-550, FI02-40%, PEEP-0. NO S/S OF RESPIRATORY DISTRESS OR SOB. SATING WELL ON TRACH SETTINGS. PATIENT IS SINUS RHYTHM ON TELE MONITOR. SKIN IS WARM AND DRY TO TOUCH. IV SITE FLUSHED, PATENT. GTUBE SITE DRAINING TO GRAVITY. J-TUBE SITE CLAMPED. SAFETY PRECAUTIONS IN PLACE, BED IN LOCKED, LOW POSITION WITH TWO SIDE RAILS UP. ISOLATION PRECAUTIONS OBSERVED AT ALL TIMES. WILL CONTINUE TO MONITOR CLOSELY.
--- NOTE | 2016-11-12 07:15 | NUR ---
TELE/RN NOTES PHARMACY CALLED TO NOTIFY PT. BLOOD GLUCOSE LEVEL 29MG/DL. NOTIFIED CHARGE NURSE CODY WHO CALLED PHARMACY AND SAID IT WAS OK TO OVERRIDE DEXTROSE. ADMINISTERED TO PT. DEXTROSE 50%. ENDORSED TO [facility] NURSE GARCIA TO NOTIFY EPIC MARINE EXTENSION AGENT MD AND TO RECHECK PT. BLOOD SUGAR IN 30 MIN.
--- NOTE | 2016-11-12 07:20 | NUR ---
TELE/RN NOTES PT. IS LYING IN BED RESTING. PT. IS VENT/TRACH DEPENDENT. CURRENT VENT SETTINGS = AC 14, TV 550, FIO2 40, PEEP 0. NO SOB, RESPIRATORY DISTRESS OR S/S OF PAIN NOTED AT THIS TIME AND THROUGHOUT SHIFT. PT. WITH EXTERNAL BLAST FURNACE BLOWER PRESENT AND INTACT. CURRENT RHYTHM = SINUS RHYTHM HR 89. PT. WITH LEFT UPPER ARM MIDLINE PRESENT, PATENT AND INTACT ADMINISTERING TO PT. IV NS @ 100ML/HR. PT. WITH J-TUBE PRESENT LEAKING MODERATE AMOUNT OF GREEN DRAINAGE AT INSERTION SITE. ALL PT. NEEDS MET. PT. OFFLOADED. TURNED AND REPOSITIONED Q2H AND NEEDED. BED IN LOWEST POSITION, CALL LIGHT WITHIN REACH. ENDORSED TO DAYSHIFT NURSE TO NOTIFY MD OF RESULTS FROM CT ABDOMEN WITH CONTRAST WELL PT. BG OF 29, DEXTROSE 50 ADMINISTERED TO PT. WILL ENDORSE TO DAYSHIFT NURSE FOR CONTINUITY OF CARE.
[2016-11-12] MEDS ORDERED: DEXTROSE 50%-WATER 50 ML DISP.SYRIN IVP ONE (07:30)
[2016-11-12] MEDS ORDERED: FEE PK DOSING 1 MIN EA MC ONE (08:38)
[2016-11-12] MEDS ORDERED: INSULIN DETEMIR 100 UNIT/ML CARTRIDGE SQ SCH (09:00)
[2016-11-12] MEDS ORDERED: IV SET PRIMARY PUMP SET 1 EA INFUS.SET MC ONE (09:14)
[2016-11-12] MEDS: LEVETIRACETAM (500MG) 500 MG in IV NS 0.9% 100 ML IV SCH ×2 (09:19→20:02)
[2016-11-12] MEDS: VANCOMYCIN 1 GM in IV D5W 250 ML IV SCH ×2 (09:19→22:19)
[2016-11-12] MEDS: PANTOPRAZOLE 40 MG VIAL IV SCH (09:19)
[2016-11-12] MEDS: IV D5/ 0.9% NACL 1,000 ML IV PRN ×2 (10:47→21:12)
[2016-11-12] MEDS: ZOSYN IVPB 4.5 G in IV D5W 50ml IV SCH ×3 (13:13→23:58)
[2016-11-12] MEDS: POTASSIUM CL. PREMIX PERIPHER. 50 ML IV SCH ×2 (13:18→14:12)
--- NOTE | 2016-11-12 19:03 | NUR ---
RN CLOSING NOTE ALL MD ORDERS CARRIED OUT. PATIENT KEPT CLEAN AND DRY. SAFETY PRECAUTIONS IN PLACE AT ALL TIMES. ISOLATION PRECAUTIONS OBSERVED ALWAYS. REPORT WILL BE GIVEN TO PM RN FOR BLANCA.
[2016-11-12] MEDS ORDERED: SET RED CAP 1 EA INFUS.SET MC ONE ×2 (19:33→21:06)
--- NOTE | 2016-11-12 19:50 | NUR ---
FLIGHT HOSTESS INITIAL NOTES: RECEIVED REPORT FROM JOSE OLVERA. PT IN BED, OBTUNDED, [facility] WITH THE FF SETTING AC 14 TV 550 FIO2 40% PEEP 0, AMBU BAG AT BED SIDE, CLINICAL ALARMS CHECKED AND AUDIBLE, PT HAS LEFT UPPER ARM MIDLINE IN PLACED, PER PT HAVE THE MIDLINE FROM [facility]. PT HAS GTUBE DRAINING INTO MAI BAG, AND J-TUBE ON CLAMPED BUT IS LEAKING WITH GREENISH TO YELLOWISH DRAINAGE, COVERED WITH 4X4 GAUZED AND NEEDS TO BE CHANGE Q1HR. AT BED SIDE. BLE OFFLOADED. ON TELE READING SINUS RHYTHM HR 86, NO FACIAL GRIMACE NOTED, APPEARS CALM AND COMFORTABLE, SAFETY PRECAUTIONS FOR FALL INITIATED CALL LIGHT IN REACH, WILL CONTINUE TO MONITOR
--- NOTE | 2016-11-12 20:00 | NUR ---
RN NOTES: PER PT'S , PT IS ALLERGIC TO HOSPITAL SOAP SO PREFERS TO USE WIPES FOR THE PT, AND AVEENO LOTION FOR THE BODY
--- NOTE | 2016-11-12 21:00 | NUR ---
MS OLVERA J-TUBE SKIN WAS CLEANED AND DRIED. J-TUBE DRESSING WAS CHANGED
[2016-11-12] MEDS: LEVOFLOXACIN 500 MG /D5W 100ML 100 ML IV SCH (21:11)
--- NOTE | 2016-11-12 21:22 | NUR ---
MS RN ACCU-CHECK BG WAS 158, NO COVERAGE NEEDED PER MD
[2016-11-13] VITALS: BP_SYST 124; BP_SYST 149; BP_DIAS 66; BP_DIAS 93
[2016-11-13 00:32] VITALS: BP 149/93
[2016-11-13] MEDS: IPRATROPIUM NEB FS 0.5 MG/2.5 ML AMPUL.NEB IH SCH ×5 (02:03→20:19)
[2016-11-13] MEDS: ALBUTEROL FS 2.5 MG/3 ML VIAL.NEB IH SCH ×5 (02:04→20:19)
--- NOTE | 2016-11-13 02:47 | NUR ---
RN NOTES: PER MD, ONLY ACCU CHECK Q6HR NPO WITH NO COVERAGE FOR NOW, PT'S MEDICATION FOR DM WERE HELD BY
[2016-11-13 03:59] VITALS: BP 124/66
[2016-11-13] MEDS: ZOSYN IVPB 4.5 G in IV D5W 50ml IV SCH ×3 (05:21→17:13)
[2016-11-13] MEDS: BLOOD SUGAR DIAGNOSTIC 1 EACH STRIP IN SCH ×3 (05:22→17:13)
--- NOTE | 2016-11-13 05:40 | NUR ---
MS RN NOTES ACCUCHECK WAS 219- NO COVERAGE PER ORDER. ORAL CARE WAS PERFORMED
[2016-11-13 06:27] VITALS: BP 165/82
--- NOTE | 2016-11-13 06:43 | NUR ---
RN CLOSING NOTE ALL MD ORDERS CARRIED OUT. PATIENT KEPT CLEAN AND DRY. J-TUBE DRESSING WAS CLEANED AND REDRESSED Q1H. G-TUBE DRESSING WAS CHANGED AND KEPT CLEAN. PT TOLERATED VENT SETTING WELL. SAFETY PRECAUTIONS IN PLACE AT ALL TIMES. ISOLATION PRECAUTIONS OBSERVED ALWAYS. WILL ENDORSE TO DAY SHIFT FOR CONTINUATIVE CARE.
--- NOTE | 2016-11-13 07:24 | NUR ---
ORCHESTRA LEADER NOTES RECEIVED PATIENT IN BED, NO APPARENT DISTRESS NOTED, NO SOB, NO FACIAL GRIMACING NOTED. VENT SETTINGS ORDERED, HOB ELEVATED. ON TELE MONITORING SR HR 92. ON CONTACT PRECAUTIONS FOR MRSA NARES AND WOUND. ALL NEEDS MET, KEPT CLEAN AND DRY.
[2016-11-13 07:28] LABS: BASOPHILS # (AUTO) 0.1 /CMM (0.0-0.2); BASOPHILS % (AUTO) 0.6 % (0.0-2.0); EOSINOPHILS # (AUTO) 0.1 /CMM (0.0-0.7); EOSINOPHILS % (AUTO) 0.4 % (0.0-6.0); HEMATOCRIT 33 % (39-51); HEMOGLOBIN 11.1 g/dL (13.5-17.5); LYMPHOCYTES # (AUTO) 0.8 /CMM (0.8-4.8); LYMPHOCYTES % (AUTO) 4.9 % (20.0-44.0); MEAN CORPUSCULAR HEMOGLOBIN 30 PG (26.0-33.0); MEAN CORPUSCULAR HGB CONC 34 g/dl (31.0-36.0); MEAN CORPUSCULAR VOLUME 90 fL (80-96); MONOCYTES # (AUTO) 0.2 /CMM (0.1-1.30); MONOCYTES % (AUTO) 1.2 % (2.0-12.0); NEUTROPHILS # (AUTO) 14.4 /CMM (1.8-8.9); NEUTROPHILS % (AUTO) 92.9 % (43.0-81.0); PLATELET COUNT (AUTO) 167 /CMM (150-450); RED BLOOD CELL COUNT(AUTO) 3.68 MIL/uL (4.5-6.0); WHITE BLOOD COUNT (AUTO) 15.5 K/uL (4.3-11.0)
[2016-11-13 07:52] LABS: CREATININE 0.5 mg/dL (0.6-1.3); MAGNESIUM 1.4 mg/dL (1.8-2.4); PHOSPHORUS 2.9 mg/dL (2.5-4.9)
[2016-11-13 08:05] LABS: POTASSIUM 2.7 mmol/L (3.5-5.1)
[2016-11-13] MEDS: PANTOPRAZOLE 40 MG VIAL IV SCH (08:24)
[2016-11-13] MEDS: VANCOMYCIN 1 GM in IV D5W 250 ML IV SCH ×2 (08:24→22:25)
[2016-11-13] MEDS: LEVETIRACETAM (500MG) 500 MG in IV NS 0.9% 100 ML IV SCH ×2 (09:40→20:47)
[2016-11-13 10:08] LABS: BAND % (MANUAL) 4 % (0.0-5.0); LYMPHOCYTES % (MANUAL) 3 % (16-48); MONOCYTES % (MANUAL) 3 % (0-11.0); NEUTROPHILS % (MANUAL) 90 (42-76)
[2016-11-13 10:47] LABS: ALBUMIN 1.9 g/dL (3.4-5.0); BILIRUBIN,DIRECT 0.2 mg/dL (0.0-0.2); BILIRUBIN,TOTAL 0.7 mg/dL (0.2-1.0); TOTAL PROTEIN, SERUM 5.1 g/dL (6.4-8.2)
--- NOTE | 2016-11-13 10:50 | NUR ---
BUSINESS PERFORMANCE ADVISOR NOTES CALLED DR FORD, TO REPORT CRITICAL POTASSIUM LEVEL OF 2.7, ORDERS TO FOLLOW.
[2016-11-13] MEDS ORDERED: IV SET PRIMARY PUMP SET 1 EA INFUS.SET MC ONE (11:11)
[2016-11-13] MEDS: POTASSIUM CL. PREMIX PERIPHER. 50 ML IV SCH ×6 (11:16→16:36)
[2016-11-13 11:26] LABS: AMYLASE 15 U/L (25-115); LIPASE 57 U/L (73-393)
[2016-11-13] MEDS ORDERED: SECONDARY IV SET 1 EA INFUS.SET MC ONE (11:45)
[2016-11-13] MEDS: Magnesium 1GM/D5W 100ML PREMIX 100 ML IV SCH ×4 (11:49→15:36)
[2016-11-13 16:00] VITALS: BP 135/65
[2016-11-13] MEDS: IV D5/ 0.9% NACL 1,000 ML IV PRN (17:14)
--- NOTE | 2016-11-13 19:23 | NUR ---
telephone lines repairer closing notes All needs provided, attended, and anticipated, kept patient clean and comfortable in bed, call light with in patient reach, endorsed to next shift to continue care. On tele monitor SR 67.
--- NOTE | 2016-11-13 19:30 | NUR ---
COMPANY SECRETARY INITIAL NOTE RECEIVED PT OBTUNDED, UNABLE TO VERBALIZE NEEDS DUE TO LOC, AT BEDSIDE, PT IS BEDREST AND WILL BE REPOSITIONED EVERY 2 HRS TO PREVENT SKIN BREAKDOWN AND TO PROMOTE COMFORT, PT HAS A GT AND JT THAT ARE MALFUNCTIONING, NPO UNTIL GI EVAL, SAFETY MEASURES WILL BE IMPLEMENTED AT ALL TIMES, NEEDS WILL BE ANTICIPATED AND ATTENDED TO PROMPTLY.
[2016-11-13 20:00] VITALS: BP 110/70
[2016-11-13] MEDS: MUPIROCIN OINT 2% 22 GM TUBE SCH (21:15)
[2016-11-13] MEDS: LEVOFLOXACIN 500 MG /D5W 100ML 100 ML IV SCH (21:16)
[2016-11-14] VITALS: BP 100/63
[2016-11-14] MEDS: ZOSYN IVPB 4.5 G in IV D5W 50ml IV SCH ×4 (00:05→17:54)
[2016-11-14] MEDS: BLOOD SUGAR DIAGNOSTIC 1 EACH STRIP IN SCH ×4 (00:05→17:54)
[2016-11-14] MEDS: IPRATROPIUM NEB FS 0.5 MG/2.5 ML AMPUL.NEB IH SCH ×4 (01:56→20:29)
[2016-11-14] MEDS: ALBUTEROL FS 2.5 MG/3 ML VIAL.NEB IH SCH ×4 (01:56→20:29)
[2016-11-14 04:00] VITALS: BP 102/65
[2016-11-14 06:00] VITALS: BP 102/58
--- NOTE | 2016-11-14 06:21 | NUR ---
SHOP ROUTER CLOSING NOTE PT REMAINED STABLE DURING MINE LABORER, NO SIGNS OF PAIN OR RESPIRATORY DISTRESS NOTED, J TUBE DRESSING CHANGED SEVERAL TIMES LAST NIGHT DUE TO HEAVY LEAKING, MD IS AWARE, AWAITING DOCTOR MIGUEL GI CONSULT, PT IS CLEAN/DRY AND COMFORTABLE, ALL NEEDS HAVE BEEN MET, SAFETY MEASURES HAVE BEEN MAINTAINED, WILL ENDORSE TO AM NURSE FOR BLANCA.
[2016-11-14] MEDS: IV D5/ 0.9% NACL 1,000 ML IV PRN (07:10)
--- NOTE | 2016-11-14 07:10 | NUR ---
cell changer initial notes Received patient in bed, awake, head of bed elevated, no SOB or distress noted. On mechanical vent and tolerated well. IV intact and patent with IVF infusing well. JT and GT in placed with discharges coming out. GT output 250 ml as endorsed by material handler 2nd shift RN. NPO as ordered. for HIDA scan scheduled today. On tele monitor SR heart rate of 89. Kept patient clean and comfortable in bed, call light with in patient reach, will continue to monitor accordingly.
[2016-11-14 07:47] LABS: CALCIUM, SERUM 7.3 mg/dL (8.5-10.1); CREATININE 0.5 mg/dL (0.6-1.3); MAGNESIUM 2.1 mg/dL (1.8-2.4); POTASSIUM 3.1 mmol/L (3.5-5.1)
[2016-11-14] MEDS: PANTOPRAZOLE 40 MG VIAL IV SCH (09:28)
[2016-11-14] MEDS: MUPIROCIN OINT 2% 22 GM TUBE SCH ×2 (09:29→21:27)
[2016-11-14] MEDS: LEVETIRACETAM (500MG) 500 MG in IV NS 0.9% 100 ML IV SCH ×2 (09:31→20:44)
[2016-11-14] MEDS ORDERED: POTASSIUM CL. PREMIX PERIPHER. 50 ML IV SCH ×2 (11:00→13:30)
--- NOTE | 2016-11-14 11:03 | NUR ---
WOUND CARE CONSULT: PT PRESENTS WITH MULTIPLE SKIN ISSUES INCLUDING LEFT LEG STAGE IV ULCER, RASH TO PERINEUM AND DRY ESCHAR/SCAB TO RT FOOT AND REDNESS AROUND G TUBE SITE, ALL PRESENT ON ADMISSION. G TUBE IS CLAMPED AT THIS TIME. SKIN TO BE KEPT CLEAN AND DRY. J TUBE IS ATTACHED TO DRAINAGE BAG. DEFER TO GI FOR G TUBE AND J TUBE SITES. ALL SKIN PROTECTION MEASURES IN PLACE AND DISCUSSED WITH NURSING STAFF. RECOMMEND ANGIE ISOFLEX LOW AIRLOSS BED. IN AGREEMENT WITH PLAN OF CARE. Addendum: 11/14/16 at 1106 by BIENVENIDO CHING WNDNU Amended: Links added.
[2016-11-14 16:00] VITALS: BP 115/72
[2016-11-14] MEDS: CLOTRIMAZOLE 1% 15 GM TUBE TP SCH ×2 (16:23→17:55)
[2016-11-14] MEDS ORDERED: IV SET PRIMARY PUMP SET 1 EA INFUS.SET MC ONE (16:31)
[2016-11-14] MEDS: POTASSIUM CL. PREMIX PERIPHER. 50 ML IV SCH ×3 (17:56→20:00)
--- NOTE | 2016-11-14 19:30 | NUR ---
INFANT ROOM TEACHER INITIAL NOTE RECEIVED PT AWAKE AND OBTUNDED BASELINE, NO SING OF PAIN OR RESPIRATORY DISTRESS NOTED DURING PHYSICAL ASSESSMENT, PT ON CONT. VENTILATION AND TOLERATING WELL, NPO PER MD ORDERS, SEEN BY DR. CALVERT FOR GI CONSULT, WILL F/U FOR RECOMMENDATIONS, JT PROFUSELY LEAKING, DRESSING WILL BE CHANGED Q1HR AND NECESSARY, SAFETY MEASURES WILL BE OBSERVED AT ALL TIMES, WILL CONTINUE TO MONITOR CLOSELY AND ATTEND TO NEEDS PROMPTLY.
--- NOTE | 2016-11-14 19:32 | NUR ---
silverware supervisor closing notes All needs provided, attended, and anticipated. Kept patient clean and comfortable in bed, call light with in reach, will continue to monitor. Endorsed to next shift RN to continue care. On tele monitor SR heart rate of 67
[2016-11-14 20:00] VITALS: BP 105/66
--- NOTE | 2016-11-14 20:38 | NUR ---
POTASSIUM CHLORIDE SCHEDULE FOR 1999 NOT ADMINISTERED, ORDER WAS FOR 3BAGS OF POTASSIUM CHLORIDE WHICH WAS GIVEN BY AM NURSE, WILL F/U AM LABS.
[2016-11-14] MEDS ORDERED: SECONDARY IV SET 1 EA INFUS.SET MC ONE (20:44)
[2016-11-14] MEDS: LEVOFLOXACIN 500 MG /D5W 100ML 100 ML IV SCH (21:23)
[2016-11-14] MEDS: VANCOMYCIN 0.75 GM in IV D5W 250 ML IV SCH (22:31)
[2016-11-15] VITALS (7 sets, daily range): BP systolic 107–136; BP diastolic 62–89
[2016-11-15] MEDS: BLOOD SUGAR DIAGNOSTIC 1 EACH STRIP IN SCH ×4 (00:38→18:56)
[2016-11-15] MEDS: ZOSYN IVPB 4.5 G in IV D5W 50ml IV SCH ×4 (00:38→19:13)
[2016-11-15] MEDS: ALBUTEROL FS 2.5 MG/3 ML VIAL.NEB IH SCH ×4 (01:29→20:42)
[2016-11-15] MEDS: IPRATROPIUM NEB FS 0.5 MG/2.5 ML AMPUL.NEB IH SCH ×4 (01:29→20:42)
[2016-11-15] MEDS: IV D5/ 0.9% NACL 1,000 ML IV PRN ×2 (02:45→18:10)
--- NOTE | 2016-11-15 08:00 | NUR ---
RN OPENING NOTES RECEIVED PATIENT IN BED, ON [facility] VENTILATOR. HEAD OF BED ELEVATED, NO ACUTE DISTRESS NOTED. IV SITE INTACT AND PATENT. JT AND GT IN PLACED WITH DISCHARGES COMING OUT. PT NPO ORDERED. KEPT PATIENT CLEAN AND COMFORTABLE IN BED, CALL LIGHT WITHIN REACH, WILL CONTINUE TO MONITOR.
[2016-11-15 08:10] LABS: BASOPHILS % (AUTO) 0.3 % (0.0-2.0); EOSINOPHILS % (AUTO) 0.1 % (0.0-6.0); HEMATOCRIT 30 % (39-51); HEMOGLOBIN 10.1 g/dL (13.5-17.5); LYMPHOCYTES # (AUTO) 0.9 /CMM (0.8-4.8); LYMPHOCYTES % (AUTO) 12.3 % (20.0-44.0); MEAN CORPUSCULAR HEMOGLOBIN 30 PG (26.0-33.0); MEAN CORPUSCULAR HGB CONC 34 g/dl (31.0-36.0); MEAN CORPUSCULAR VOLUME 89 fL (80-96); MONOCYTES # (AUTO) 0.3 /CMM (0.1-1.30); MONOCYTES % (AUTO) 4.1 % (2.0-12.0); NEUTROPHILS # (AUTO) 6.3 /CMM (1.8-8.9); NEUTROPHILS % (AUTO) 83.2 % (43.0-81.0); PLATELET COUNT (AUTO) 116 /CMM (150-450); RED BLOOD CELL COUNT(AUTO) 3.31 MIL/uL (4.5-6.0); WHITE BLOOD COUNT (AUTO) 7.6 K/uL (4.3-11.0)
[2016-11-15 08:11] LABS: INR 3.05 (0.87-1.13); PROTHROMBIN TIME 35.1 SECS (9.5-12.7)
[2016-11-15 08:27] LABS: ALBUMIN 1.5 g/dL (3.4-5.0); BILIRUBIN,TOTAL 0.7 mg/dL (0.2-1.0); CALCIUM, SERUM 7.1 mg/dL (8.5-10.1); CREATININE 0.5 mg/dL (0.6-1.3); POTASSIUM 3.1 mmol/L (3.5-5.1)
[2016-11-15] MEDS: VANCOMYCIN 0.75 GM in IV D5W 250 ML IV SCH ×3 (09:00→21:15)
--- NOTE | 2016-11-15 09:00 | NUR ---
VANCOMYCIN HELD, TROUGH LEVEL 21. PHARMACY NOTIFIED. Addendum: 11/15/16 at 1128 by GAYATHRI FLOWER PER ANDREA JOSEPH TO GIVE VANCOMYCIN
[2016-11-15] MEDS: PANTOPRAZOLE 40 MG VIAL IV SCH (10:12)
[2016-11-15] MEDS: LEVETIRACETAM (500MG) 500 MG in IV NS 0.9% 100 ML IV SCH ×2 (10:13→21:16)
[2016-11-15] MEDS: CLOTRIMAZOLE 1% 15 GM TUBE TP SCH ×2 (10:14→17:16)
[2016-11-15] MEDS: MUPIROCIN OINT 2% 22 GM TUBE SCH ×2 (10:14→21:16)
[2016-11-15] MEDS: POTASSIUM CL. PREMIX PERIPHER. 50 ML IV SCH ×3 (13:17→23:16)
--- NOTE | 2016-11-15 14:00 | NUR ---
PATIENT'S CAREGIVER REPORTED THAT MULTIPLE SMALL ABRASIONS OCCURRED AFTER SHE REMOVED THE PATIENT'S SOCKS ON THE LEFT FOOT. INITIAL TREATMENT DONE BY CLEANSING WITH NORMAL SALINE AND LEAVE OPEN TO AIR. NO SIGNS OF INFECTION, NO REDNESS, NO SWELLING, NO BLEEDING NOTED. PATIENT HAS NO SIGN AND SYMPTOM OF DISCOMFORT. INCIDENT REPORT DONE, ID#[id number].
[2016-11-15] MEDS ORDERED: SECONDARY IV SET 1 EA INFUS.SET MC ONE ×3 (14:15→21:55)
[2016-11-15] MEDS: FLUCONAZOLE IN NS 200 MG in PREMIX 1 EA IV SCH ×2 (14:24)
--- NOTE | 2016-11-15 19:00 | NUR ---
RN CLOSING NOTES PATIENT ON BED RESTING WITH FAMILY ON BEDSIDE. NO ACUTE DISTRESS NOTED. ALL NEEDS PROVIDED, AND ATTENDED. KEPT PATIENT CLEAN AND COMFORTABLE. BED IN LOW POSITION, HEAD OF BED ELEVATED, SIDE RAILS UP X2. CALL LIGHT WITHIN REACH. ENDORSED TO PROJECT MANAGER SENIOR RN FOR CONTINUITY OF CARE.
[2016-11-15] MEDS ORDERED: POTASSIUM CL. PREMIX PERIPHER. 100 ML ONE (21:26)
[2016-11-15] MEDS ORDERED: IV NS 0.9% 250 ML IV ONE (21:40)
[2016-11-15] MEDS ORDERED: IV SET PRIMARY PUMP SET 1 EA INFUS.SET MC ONE (21:40)
[2016-11-15 22:43] LABS: EOSINOPHILS % (AUTO) 0.5 % (0.0-6.0); HEMATOCRIT 27 % (39-51); LYMPHOCYTES # (AUTO) 0.7 /CMM (0.8-4.8); MEAN CORPUSCULAR HEMOGLOBIN 29 PG (26.0-33.0); MEAN CORPUSCULAR HGB CONC 33 g/dl (31.0-36.0); MEAN CORPUSCULAR VOLUME 90 fL (80-96); MONOCYTES # (AUTO) 0.4 /CMM (0.1-1.30); MONOCYTES % (AUTO) 6.2 % (2.0-12.0); NEUTROPHILS # (AUTO) 4.7 /CMM (1.8-8.9); NEUTROPHILS % (AUTO) 81.3 % (43.0-81.0); PLATELET COUNT (AUTO) 106 /CMM (150-450); RDW COEFFICIENT OF VARIATION 17.5 (11.5-15.0); RED BLOOD CELL COUNT(AUTO) 3.06 MIL/uL (4.5-6.0); WHITE BLOOD COUNT (AUTO) 5.8 K/uL (4.3-11.0)
[2016-11-16] VITALS (7 sets, daily range): BP systolic 113–134; BP diastolic 58–90
[2016-11-16] MEDS: POTASSIUM CL. PREMIX PERIPHER. 50 ML IV SCH ×5 (00:01→17:05)
[2016-11-16] MEDS: ZOSYN IVPB 4.5 G in IV D5W 50ml IV SCH ×4 (00:01→18:40)
[2016-11-16] MEDS: BLOOD SUGAR DIAGNOSTIC 1 EACH STRIP IN SCH ×4 (00:01→17:05)
[2016-11-16] MEDS: IPRATROPIUM NEB FS 0.5 MG/2.5 ML AMPUL.NEB IH SCH ×4 (02:53→19:38)
[2016-11-16] MEDS: ALBUTEROL FS 2.5 MG/3 ML VIAL.NEB IH SCH ×4 (02:53→19:38)
--- NOTE | 2016-11-16 06:39 | NUR ---
MS RN NOTES AWAKE & ALERT WITH SAME VENT SETTINGS. NOT IN ANY DISTRESS. NO SOB NOTED. NO S/SX OF ANY PAIN OR DISCOMFORT AT THIS TIME. WITH IVF INFUSING WELL. AM CARE DONE. MONITORED ACCORDINGLY. CALL LIGHT WITHIN REACH. BED IN LOWEST POSITION. SR UP X 3 FOR SAFETY. WILL ENDORSE TO NEXT SHIFT.
[2016-11-16 07:37] LABS: CALCIUM, SERUM 7.2 mg/dL (8.5-10.1); CREATININE 0.4 mg/dL (0.6-1.3); POTASSIUM 3.1 mmol/L (3.5-5.1)
--- NOTE | 2016-11-16 07:53 | NUR ---
HYPERION ESSBASE DEVELOPER NOTES RECEIVED PATIENT IN BED, NO APPARENT DISTRESS NOTED, NO SOB, NO FACIAL GRIMACING NOTED. PATIENT IS NON VERBAL ON A VENT, VENT SETTINGS ORDERED. ON TELE MONITOR, SR 82. PATIENT WITH A NON WORKING G-TUBE DRAINING TROUGH A MAI CATH. J-TUBE IS LEAKING, SKIN AROUND SITE WITH REDNESS. ALL NEEDS MET, KEPT CLEAN AND DRY. Addendum: 11/16/16 at 0802 by LINETTE ELENA RN ARMANI MIDLINE PATENT, INFUSING D5NS @ 100 ML/HR.
[2016-11-16] MEDS ORDERED: SECONDARY IV SET 1 EA INFUS.SET MC ONE ×2 (08:24→20:24)
[2016-11-16] MEDS ORDERED: IV SET PRIMARY PUMP SET 1 EA INFUS.SET MC ONE (08:24)
[2016-11-16] MEDS: LEVETIRACETAM (500MG) 500 MG in IV NS 0.9% 100 ML IV SCH (09:02)
[2016-11-16] MEDS: IV D5/ 0.9% NACL 1,000 ML IV PRN (09:02)
[2016-11-16] MEDS: PANTOPRAZOLE 40 MG VIAL IV SCH (09:04)
[2016-11-16] MEDS: MUPIROCIN OINT 2% 22 GM TUBE SCH ×2 (09:05→20:31)
[2016-11-16] MEDS: CLOTRIMAZOLE 1% 15 GM TUBE TP SCH ×2 (09:18→17:04)
[2016-11-16] MEDS: VANCOMYCIN 0.75 GM in IV D5W 250 ML IV SCH ×2 (10:27→21:00)
[2016-11-16] MEDS: FLUCONAZOLE IN NS 200 MG in PREMIX 1 EA IV SCH ×2 (11:20)
--- NOTE | 2016-11-16 18:00 | NUR ---
DAYCARE WORKER NOTES PATIENTS' JINGLE WRITER REPORTED NEW SKIN ALTERATION ON LEFT FORE ARM. NOTED WITH REDNESS, PHOTO TAKEN AND DOCUMENTED. WILL CONTINUE TO MONITOR.
--- NOTE | 2016-11-16 19:25 | NUR ---
PROGRAM REP NOTES PATIENT IN BED, OBTUNDED, NO APPARENT DISTRESS NOTED. WOUND TREATMENTS DONE ORDERED. ALL DUE MEDS GIVEN, REPLACED 4 BAGS OF POTASSIUM, ALL NEEDS MET KEPT CLEAN AND DRY. VENT SETTINGS ORDERED, MID LINE ON RIGHT UPPER ARM PATENT INFUSING D5NS. WILL ENDORSE CARE TO PM SHIFT.
--- NOTE | 2016-11-16 19:45 | NUR ---
RT Received patient on settings of AC14 550 40% +0 Patient is unconscious. Suctioned small amount of clear secretions. Ambu bag is at bedside, vent alarms are audible and functioning. Addendum: 11/16/16 at 1958 by CALLY HESTER RT Amended: Links added.
--- NOTE | 2016-11-16 20:06 | NUR ---
RECEIVED PATIENT OBTUNDED, NO RESPIRATORY DISTRESS, VENTILATOR DEPENDENT, VENTILATOR IN GOOD WORKING CONDITION, 02 SAT 100%, KEPT HOB ELEVATED, G TUBE IS SET TO SUCTION, DRAINING CLEAR FLUIDS, J-TUBE IS CLAMPED, NOT IN USE, WITH GREENISH, THIN LIQUID DRAINING FROM THE SIDES OF THE SITE. AT RISK FOR SKIN BREAKDOWN. LEFT UPPER ARM MIDLINE IS INFUSING WELL WITH. AT THE BEDSIDE, KEPT SAFE, CALL LIGHT WITHIN REACH. WILL CONTINUE TO MONITOR.
[2016-11-16] MEDS: KEPPRA 500 MG in IV NS 100 ML IV SCH (20:26)
[2016-11-16] MEDS ORDERED: LEVETIRACETAM (250 MG) 250 MG TABLET PO SCH (21:00)
--- NOTE | 2016-11-16 21:00 | NUR ---
LIUDMILA REQUESTED TO PUT COLOSTOMY BAG AROUND THE J TUBE SITE TO CATCH DRAINAGE
--- NOTE | 2016-11-16 21:33 | NUR ---
VANCOMYCIN IV NOT GIVEN, VANCO TROUGH TAKEN AT 20:00 IS 21.
--- NOTE | 2016-11-16 22:30 | NUR ---
VANCO TROUGH RESULT 21, MADE AWARE, NO NEW ORDER
[2016-11-17] VITALS (9 sets, daily range): BP systolic 92–158; BP diastolic 63–84
[2016-11-17] MEDS: ZOSYN IVPB 4.5 G in IV D5W 50ml IV SCH ×4 (00:02→17:53)
[2016-11-17] MEDS: BLOOD SUGAR DIAGNOSTIC 1 EACH STRIP IN SCH ×5 (00:03→18:34)
--- NOTE | 2016-11-17 00:10 | NUR ---
BG 159 MG/DL, NO INSULIN COVERAGE
[2016-11-17] MEDS: ALBUTEROL FS 2.5 MG/3 ML VIAL.NEB IH SCH ×4 (01:13→19:01)
[2016-11-17] MEDS: IPRATROPIUM NEB FS 0.5 MG/2.5 ML AMPUL.NEB IH SCH ×4 (01:13→19:01)
[2016-11-17] MEDS: IV D5/ 0.9% NACL 1,000 ML IV PRN (01:26)
--- NOTE | 2016-11-17 05:36 | NUR ---
BG 153 MG/DL, NO COVERAGE
--- NOTE | 2016-11-17 06:44 | NUR ---
PATIENT IN BED, AWAKE, NO SOB, VENTILATOR IN GOOD WORKING CONDITION, O2 SAT REMAINED AT 100%, SUCTIONED NEEDED. RIGHT UPPER ARM MIDLINE IS PATENT AND INFUSING WELL, G TUBE DRAINING OF CLEAR, VERY LIGHT GREEN FLUID, J TUBE DRAINING WITH DARK GREEN FLUID. WOUND CARE PERFORMED, GOOD PERINEAL CARE RENDERED. ALL DUE MEDICATIONS GIVEN, KEPT SAFE AND COMFORTABLE, CALL LIGHT WITHIN REACH.
--- NOTE | 2016-11-17 07:35 | NUR ---
AM RN NOTE Received patient obtunded, ventilator dependent. HOB elevated. On tele monitor. GT to suction and draining clear fluids. J tube is clamped. Mid line intact and patent. Bed in low locked position. Will continue to monitor.
--- NOTE | 2016-11-17 08:10 | NUR ---
YOUSUF Wong trough results 21, notified Franc @ pharmacy. Addendum: 11/17/16 at 0921 by VAN OSMAN RN sasha wogn dose, trough 21.
[2016-11-17 08:18] LABS: EOSINOPHILS # (AUTO) 0.1 /CMM (0.0-0.7); EOSINOPHILS % (AUTO) 0.5 % (0.0-6.0); HEMATOCRIT 33 % (39-51); HEMOGLOBIN 11.2 g/dL (13.5-17.5); LYMPHOCYTES # (AUTO) 0.9 /CMM (0.8-4.8); LYMPHOCYTES % (AUTO) 8.2 % (20.0-44.0); MEAN CORPUSCULAR HEMOGLOBIN 31 PG (26.0-33.0); MEAN CORPUSCULAR HGB CONC 34 g/dl (31.0-36.0); MEAN CORPUSCULAR VOLUME 90 fL (80-96); MONOCYTES # (AUTO) 0.5 /CMM (0.1-1.30); MONOCYTES % (AUTO) 4.5 % (2.0-12.0); NEUTROPHILS # (AUTO) 9.1 /CMM (1.8-8.9); NEUTROPHILS % (AUTO) 86.8 % (43.0-81.0); PLATELET COUNT (AUTO) 114 /CMM (150-450); RDW COEFFICIENT OF VARIATION 17.5 (11.5-15.0); RED BLOOD CELL COUNT(AUTO) 3.67 MIL/uL (4.5-6.0); WHITE BLOOD COUNT (AUTO) 10.4 K/uL (4.3-11.0)
[2016-11-17] MEDS: PANTOPRAZOLE 40 MG VIAL IV SCH (08:44)
[2016-11-17] MEDS: VANCOMYCIN 0.75 GM in IV D5W 250 ML IV SCH (09:00)
[2016-11-17] MEDS: KEPPRA 500 MG in IV NS 100 ML IV SCH ×2 (09:10→21:00)
[2016-11-17] MEDS: CLOTRIMAZOLE 1% 15 GM TUBE TP SCH ×2 (09:11→17:33)
[2016-11-17] MEDS: MUPIROCIN OINT 2% 22 GM TUBE SCH ×2 (09:11→22:22)
[2016-11-17] MEDS ORDERED: DOSING PER PHARMACY-TOBRA INHALATION 1 EA XX PRN (09:30)
--- NOTE | 2016-11-17 10:39 | NUR ---
WOUND CARE CONSULT: PT SEEN FOR TINY DRY ABRASIONS TO DORSAL LEFT FOOT. NO DRAINAGE NOTED. PT HAS VERY FRAGILE SHINY SKIN. WILL SEE PRN.
--- NOTE | 2016-11-17 11:15 | NUR ---
AM RN NOTE Called pharmacy spoke with Tasha to deliver Diflucan medication.
[2016-11-17] MEDS: TOBRAMYCIN 80 MG/2 ML VIAL INH SCH ×2 (11:30→22:22)
[2016-11-17 11:35] LABS: BILIRUBIN,TOTAL 0.6 mg/dL (0.2-1.0); CREATININE 0.5 mg/dL (0.6-1.3); TOTAL PROTEIN, SERUM 4.9 g/dL (6.4-8.2)
[2016-11-17 11:37] LABS: ALBUMIN 1.4 g/dL (3.4-5.0); POTASSIUM 2.7 mmol/L (3.5-5.1)
--- NOTE | 2016-11-17 11:50 | NUR ---
AM RN NOTE Received call from [facility] 2.7 and albumin 1.4 results. Notified Robin W[employer] TE[employer]IST with new orders.
--- NOTE | 2016-11-17 11:55 | NUR ---
AM RN NOTE Spoke with Jose Carlos (Pharmacy) to verify Kcl order, awaiting.
[2016-11-17] MEDS ORDERED: DEXTROSE 50%-WATER 50 ML DISP.SYRIN IV PRN ×2 (12:00→22:30)
[2016-11-17] MEDS ORDERED: TPN/PPN PER PHARMACY IV PRN (12:00)
[2016-11-17] MEDS ORDERED: SECONDARY IV SET 1 EA INFUS.SET MC ONE ×2 (12:05→16:15)
[2016-11-17] MEDS: POTASSIUM CL. PREMIX PERIPHER. 50 ML IV SCH ×4 (12:10→15:27)
[2016-11-17] MEDS: FLUCONAZOLE IN NS 200 MG in PREMIX 1 EA IV SCH ×2 (14:16)
--- NOTE | 2016-11-17 14:29 | NUR ---
AM RN NOTE Spoke with Tasha @ pharmacy that awaiting for TPN.
--- NOTE | 2016-11-17 14:41 | NUR ---
AM RN NOTE Received call from [facility] that pt is positive for VRE for abdominal wound fluids. Adali @ pharmacy made aware and will notify Robin KAY.
--- NOTE | 2016-11-17 14:45 | NUR ---
AM RN NOTE Robin MIDDLE OR INTERMEDIATE SCHOOL PRINCIPAL made aware that pt positive for VRE abdominal wound and per Robin, he will F/U with ID, NNO at this time. CN (Hansel) made aware.
[2016-11-17 15:03] LABS: PHOSPHORUS 2.2 mg/dL (2.5-4.9)
[2016-11-17 15:18] LABS: MAGNESIUM 1.2 mg/dL (1.8-2.4)
--- NOTE | 2016-11-17 15:25 | NUR ---
AM RN NOTE Mg 1.2 results notified to Robin KAY and Tasha with new orders.
[2016-11-17] MEDS ORDERED: TPN BAG #1 IV PRN ×8 (16:00)
[2016-11-17] MEDS ORDERED: FEE TPN 1 MIN EA MC ONE (16:11)
[2016-11-17] MEDS: Magnesium 1GM/D5W 100ML PREMIX 100 ML IV SCH ×4 (16:20→19:50)
[2016-11-17] MEDS: VANCOMYCIN 500 MG in IV D5W 100 ML IV SCH (16:20)
--- NOTE | 2016-11-17 17:21 | NUR ---
AM RN NOTE Spoke with Adali (Pharmacist) that finish Mg IV and then start TPN. Estefanía made aware Mg 1st bag running and 3 more bags to run.
[2016-11-17] MEDS ORDERED: IV SET PRIMARY PUMP SET 1 EA INFUS.SET MC ONE ×3 (18:27→19:55)
--- NOTE | 2016-11-17 18:50 | NUR ---
AM RN NOTE Patient lying in his bed, at bedside. Bed in low locked position. Midline intact and patent. Mg 3rd bag running will endorse to next shift for BLANCA.
--- NOTE | 2016-11-17 19:30 | NUR ---
BIODIESEL PRODUCTION TECHNICIAN INITIAL NOTES: RECEIVED REPORT FROM DAY RN. PT IN BED, [facility]BT[facility], [facility] SET[facility] AC 14 TV 550 FIO2 40% PEEP 0, AMBU BAG AT BED SIDE, CLINICAL ALARMS CHECKED AND AUDIBLE, PT HAS RIGHT UPPER ARM MIDLINE IN PLACED. PT HAS GTUBE DRAINING INTO MAI BAG, AND J-TUBE ON CLAMPED WITH A OSTOMY BAG TO COLLECT THE GREENISH TO YELLOWISH DRAINAGE. BLE OFFLOADED. ON TELE READING SINUS RHYTHM HR 86, NO FACIAL GRIMACE NOTED, APPEARS CALM AND COMFORTABLE, SAFETY PRECAUTIONS FOR FALL INITIATED CALL LIGHT IN REACH, WILL CONTINUE TO MONITOR
[2016-11-17] MEDS ORDERED: IV NS 0.9% 250 ML IV ONE (19:51)
[2016-11-17] MEDS ORDERED: VANCOMYCIN 500 MG in IV D5W 100 ML IV SCH (21:00)
--- NOTE | 2016-11-17 21:00 | NUR ---
MS RN ANTIBIOTIC MAGNESIUM BAG JUST FINISHED, WERE SUPPOSED TO HANG TPN HOWEVER PT ONLY HAS MIDLINE AND WILL HAVE MULTIPLE ANTIBIOTICS LATER ON. RELATE TO GARMENT SORTER CODY, PER CHARGE NURSE WE NEED A CENTRAL LINE. WILL CONTACT [facility] SALES DEPARTMENT SUPERVISOR AND FAMILY. WHILE WAITING, ISAI WILL BE HUNG OVER 30 MIN.
--- NOTE | 2016-11-17 21:13 | NUR ---
CONTACTED [facility] FOOD SUPERVISOR RELATE THE NEED FOR CENTRAL LINE, ALSO INFORMED MD PT HAS A MIDLINE BUT SINCE PT WILL BE GETTING TPN + MULTIPLE ANTIBIOTICS IT IS BETTER TO GET A PICC LINE. PER , OKAY TO HAVE PICC LINE
--- NOTE | 2016-11-17 21:29 | NUR ---
consent for picc line/central line: contacted mrs lan, at [phone], informed about the need for picc line insertion, explain about risk and benefits, pt's giving full consent for the picc line insertion, witnessed cosigned by ke marroquin, also informed williams bro sup about need for picc line insertion roro
[2016-11-17] MEDS ORDERED: FILTER SET SAVER IV SET 1 EA INFUS.SET MC ONE (21:36)
--- NOTE | 2016-11-17 21:40 | NUR ---
RN NOTES: MAY COOMBS CURRENTLY IN THE UNIT. INFORMED ABOUT PICC LINE INSERTION AND PLUS PT ON MULTIPLE ATB. MAY COOMBS STATED IT WILL BE HARD TO GET A PICC LINE RN AT THIS HOUR AND ITS SUNDAY, SHE STATED TO DO IV COMPATIBILITY REPORT FOR TPN, ZOSYN TOBRAMYCIN, KEPPRA AND VANCOMYCIN. RESULTS SHOWN, PRINTED AND ATTACHED TO CHART. PER RN DENISSE AND SYSTEMS SOFTWARE DESIGNERHUSAM ROSS, USE THE MIDLINE FOR TONIGHT FOR TPN AND OTHER ATB SINCE BASED ON IV COMPATIBILITY REPORT THOSE IV ATB ARE COMPATIBLE WITH TPN EXCEPT THE KEPPRA. PER SYSTEMS SOFTWARE DESIGNER CODY AND CORIN TO MAKE SURE DAY RN WILL GET PICC LINE IN AM
--- NOTE | 2016-11-17 22:09 | NUR ---
TPN PRIOR TO STARTING TPN, ACCUCHECK WAS DONE RESULTING IN 177. NO COVERAGE NEEDED. WILL CONTINUE TO MONITOR FOR SIGNS OF HYPO/HYPER GLYCEMIA.
--- NOTE | 2016-11-17 22:22 | NUR ---
DR MATOS: PT WAS SEEN AND EXAMINED BY DR MATOS, WESTERN FELT HAT BLOCKER, NO NEW ORDERS GIVEN
[2016-11-17] MEDS ORDERED: INSULIN REGULAR, HUMAN 100 UNIT/ML 3 ML VIAL SQ PRN (22:30)
[2016-11-18] VITALS (8 sets, daily range): BP systolic 119–141; BP diastolic 71–88
[2016-11-18] MEDS: ZOSYN IVPB 4.5 G in IV D5W 50ml IV SCH ×5 (00:08→23:21)
[2016-11-18] MEDS: ALBUTEROL FS 2.5 MG/3 ML VIAL.NEB IH SCH ×4 (01:20→20:03)
[2016-11-18] MEDS: IPRATROPIUM NEB FS 0.5 MG/2.5 ML AMPUL.NEB IH SCH ×4 (01:20→20:03)
[2016-11-18] MEDS ORDERED: BLOOD SUGAR DIAGNOSTIC 1 EACH STRIP IN ONE (01:45)
[2016-11-18] MEDS: INSULIN REGULAR, HUMAN 100 UNIT/ML 3 ML VIAL SQ PRN ×5 (01:47→23:02)
--- NOTE | 2016-11-18 01:48 | NUR ---
ACCU CHECK: BLOOD SUGAR CHECK AFTER 4HRS OF STARTING TPN, RESULT SHOWS 176, 3UNITS OF INSULIN GIVEN PER SLIDING SCALE, WILL MONITOR PT FOR ANY S/S OF HYPO OR HYPERGLYCEMIA.
[2016-11-18] MEDS: VANCOMYCIN 500 MG in IV D5W 100 ML IV SCH (02:04)
[2016-11-18] MEDS ORDERED: DEXTROSE 50%-WATER 50 ML DISP.SYRIN IV PRN ×2 (05:30→07:00)
[2016-11-18] MEDS: BLOOD SUGAR DIAGNOSTIC 1 EACH STRIP IN SCH ×4 (05:35→23:03)
--- NOTE | 2016-11-18 06:20 | NUR ---
RN CLOSING NOTE ALL MD ORDERS CARRIED OUT. PATIENT KEPT CLEAN AND DRY. J-TUBE DRESSING IS INTACT, DRAINING INTO OSTOMY BAG. G-TUBE DRESSING WAS CHANGED AND KEPT CLEAN. PT TOLERATED VENT SETTING WELL. TPN WAS INITIATED. SAFETY PRECAUTIONS IN PLACE AT ALL TIMES. ISOLATION PRECAUTIONS OBSERVED ALWAYS. WILL ENDORSE TO DAY SHIFT FOR CONTINUATIVE CARE.
[2016-11-18] MEDS ORDERED: INSULIN REGULAR, HUMAN 100 UNIT/ML 3 ML VIAL SQ PRN (07:00)
[2016-11-18] MEDS ORDERED: BLOOD SUGAR DIAGNOSTIC 1 EACH STRIP IN SCH (07:00)
--- NOTE | 2016-11-18 07:16 | NUR ---
SPRAY BOOTH OPERATOR INITIAL NOTES: RECEIVED PATIENT LYING @ MODERATE HIGH BACKREST IN NO ACUTE SIGNS OF DISTRESS. OBTUNDED, ON MECH VENT AT PRESCRIBED SETTINGS, TOLERATED SETTINGS WITH NO SOB NOTED, AMBU BAG AT BED SIDE. ON TELE- MONITORING WITH READING OF SINUS RHYTHM AND HR 84, APPEARS CALM AND COMFORTABLE. PT HAS RIGHT UPPER ARM MIDLINE IN PLACE WITH TPN INFUSING WELL. G-TUBE DRAINING INTO MAI BAG, AND J-TUBE ON CLAMPED WITH OSTOMY BAG IN PLACE TO COLLECT DRAINAGE. BLE OFFLOADED. CALL LIGHT WITHIN REACH, BED LOW AND LOCKED WITH SIDE RAILS UP APPROPRIATE. ALL SAFETY PRECAUTIONS MAINTAINED. WILL CONTINUE TO MONITOR ACCORDINGLY.
[2016-11-18 07:57] LABS: CALCIUM, SERUM 7.3 mg/dL (8.5-10.1); CREATININE 0.5 mg/dL (0.6-1.3); PHOSPHORUS 1.7 mg/dL (2.5-4.9); POTASSIUM 2.9 mmol/L (3.5-5.1)
[2016-11-18] MEDS ORDERED: TPN BAG #2 IV PRN ×16 (08:30→08:32)
[2016-11-18] MEDS: PANTOPRAZOLE 40 MG VIAL IV SCH (08:39)
[2016-11-18] MEDS: MUPIROCIN OINT 2% 22 GM TUBE SCH ×2 (08:39→20:34)
[2016-11-18] MEDS: Z GUARD REMEDY 2 OZ OINT TP PRN ×2 (08:40→17:57)
[2016-11-18] MEDS: CLOTRIMAZOLE 1% 15 GM TUBE TP SCH ×2 (08:40→16:22)
[2016-11-18] MEDS: KEPPRA 500 MG in IV NS 100 ML IV SCH ×2 (08:47→20:33)
--- NOTE | 2016-11-18 08:55 | NUR ---
RN NOTES PATIENT NOTED WITH LOW K OF 2.9, RHEOLOGIST KASSY AWARE AND ORDER [id number] 11MEQ IN 100ML D5W X 2 DOSES. HE IS AWARE ALSO OF OTHER BLOOD WORKS RESULTS. WILL CONTINUE TO MONITOR.
[2016-11-18] MEDS: POTASSIUM PHOSPHATE MM 7.5 MMOL in IV D5W 100 ML IV SCH ×2 (09:37→14:15)
[2016-11-18] MEDS: TOBRAMYCIN 80 MG/2 ML VIAL INH SCH ×2 (11:26→22:44)
--- NOTE | 2016-11-18 11:38 | NUR ---
RN NOTES PATIENT SEEN AND EVALUATED BY ID DR GODINEZ. FLUCONAZOLE DC'D AND TO START ON ABX GENTAMICIN OINT AND NYSTATIN POWDER ON ERYTHEMA SURROUNDING J AND G-TUBES SITE. WILL CONTINUE TO MONITOR
--- NOTE | 2016-11-18 14:43 | NUR ---
RN NOTES NURSE CORWIN CHAO FROM ICU UN-ABLE TO INSERT PICC LINE ON LEFT UPPER ARM, HE THEN REMOVED MIDLINE ON ARMANI AND THEN INSERTED TRIPLE LUMEN PICC LINE ON ARMANI. TPN RE-STARTED. WILL CONTINUE TO MONITOR.
[2016-11-18] MEDS ORDERED: FILTER SET SAVER IV SET 1 EA INFUS.SET MC ONE (15:39)
[2016-11-18] MEDS ORDERED: IV SET PRIMARY PUMP SET 1 EA INFUS.SET MC ONE (15:43)
[2016-11-18] MEDS: NYSTATIN TOP POWDER 15 GM BOTTLE TP SCH (16:22)
--- NOTE | 2016-11-18 18:36 | NUR ---
REPORTS ANALYST CLOSING NOTES: PATIENT COMFORTABLY LYING IN BED WITH AT BEDSIDE. OBTUNDED, NO SIGNIFICANT CHANGES NOTED THROUGHOUT THE DAY. CONTACT PRECAUTIONS MAINTAINED. CONTINUES ON MECH VENT @ PRESCRIBED SETTINGS, TOLERATED SETTINGS WITH NO SOB NOTED, AMBU BAG AT BED SIDE. ON TELE- MONITORING WITH READING OF SINUS RHYTHM AND HR ON 90'S. PICC LINE ON ARMANI IN PLACE WITH TPN INFUSING WELL AT 50.77ML/HR. G-TUBE DRAINING INTO MAI BAG, AND J-TUBE ON CLAMPED WITH OSTOMY BAG IN PLACE TO COLLECT DRAINAGE. B/L LOWER EXT OFFLOADED. CALL LIGHT WITHIN REACH, BED LOW AND LOCKED WITH SIDE RAILS UP APPROPRIATE. ALL SAFETY PRECAUTIONS MAINTAINED. ALL NEEDS AND CARE PROVIDED WELL. WILL ENDORSED TO UNDERGROUND DISTRIBUTION ENGINEER NURSE FOR BLANCA.
--- NOTE | 2016-11-18 19:45 | NUR ---
SHOT LIGHTER INITIAL NOTES: RECEIVED REPORT FROM DAY RN. PT IN BED, OBTUNDED, [facility] FF SETTING AC 14 TV 550 FIO2 40% PEEP 0, AMBU BAG AT BED SIDE, CLINICAL ALARMS CHECKED AND AUDIBLE, PT HAS RIGHT UPPER ARM PICC LINE-TRIPLE LUMEN IN PLACED. PT HAS GTUBE DRAINING INTO MAI BAG, AND J-TUBE ON CLAMPED WITH A OSTOMY BAG TO COLLECT THE GREENISH TO YELLOWISH DRAINAGE. BLE OFFLOADED. ON TELE READING SINUS RHYTHM HR 96, NO FACIAL GRIMACE NOTED, APPEARS CALM AND COMFORTABLE, SAFETY PRECAUTIONS FOR FALL INITIATED CALL LIGHT IN REACH, WILL CONTINUE TO MONITOR
[2016-11-18] MEDS: GENTAMICIN 0.1% OINT 15 GM TUBE TP SCH (20:34)
[2016-11-18] MEDS ORDERED: SECONDARY IV SET 1 EA INFUS.SET MC ONE (23:19)
[2016-11-19] VITALS (7 sets, daily range): BP systolic 107–136; BP diastolic 68–84
[2016-11-19] MEDS: ALBUTEROL FS 2.5 MG/3 ML VIAL.NEB IH SCH ×4 (01:11→18:52)
[2016-11-19] MEDS: IPRATROPIUM NEB FS 0.5 MG/2.5 ML AMPUL.NEB IH SCH ×4 (01:11→18:52)
[2016-11-19] MEDS: ZOSYN IVPB 4.5 G in IV D5W 50ml IV SCH ×4 (05:20→23:22)
[2016-11-19] MEDS: INSULIN REGULAR, HUMAN 100 UNIT/ML 3 ML VIAL SQ PRN ×3 (05:20→17:29)
[2016-11-19] MEDS: BLOOD SUGAR DIAGNOSTIC 1 EACH STRIP IN SCH ×4 (05:27→23:22)
[2016-11-19] MEDS ORDERED: IV NS 0.9% 250 ML IV ONE (06:06)
[2016-11-19] MEDS ORDERED: IV SET PRIMARY PUMP SET 1 EA INFUS.SET MC ONE ×3 (06:06→12:46)
--- NOTE | 2016-11-19 06:17 | NUR ---
RN CLOSING NOTE ALL MD ORDERS CARRIED OUT. PATIENT KEPT CLEAN AND DRY. J-TUBE DRESSING IS INTACT, DRAINING INTO OSTOMY BAG. G-TUBE DRESSING WAS CHANGED AND KEPT CLEAN. PT TOLERATED VENT SETTING WELL. TPN BAG #2 IS RUNNING. SAFETY PRECAUTIONS IN PLACE AT ALL TIMES. ISOLATION PRECAUTIONS OBSERVED ALWAYS. WILL ENDORSE TO DAY SHIFT.
--- NOTE | 2016-11-19 07:33 | NUR ---
RN NOTES PT RECEIVED RESTING COMFORTABLY IN BED, PATIENT NON VERBAL OPENS EYES, RESPIRATIONS EVEN AND UNLABORED ON CURRENT VENT SETTINGS. IN NO APPARENT PAIN OR DISCOMFORT, DRESSINGS TO LEFT LOWER EXTREMITY AND J TUBE SITE CLEAN DRY AND INTACT. ARMANI PICC LINE PATENT AND INTACT NO REDNESS OR INFILTRATION NOTED, KEPT CLEAN AND DRY WILL CONTINUE TO MONITOR
--- NOTE | 2016-11-19 07:47 | NUR ---
RT Found patient on ventilator settings AC14 550 40% +0 . Patient is calm and unconscious. Ventilator alarms are functional and audible. Suctioned scant, thin, clear secretions. Ambu bag is at bedside. Addendum: 11/19/16 at 1014 by CALLY HESTER RT Amended: Links added.
[2016-11-19 08:12] LABS: CALCIUM, SERUM 7.3 mg/dL (8.5-10.1); CREATININE 0.4 mg/dL (0.6-1.3); MAGNESIUM 1.7 mg/dL (1.8-2.4); PHOSPHORUS 1.9 mg/dL (2.5-4.9); POTASSIUM 3.2 mmol/L (3.5-5.1)
[2016-11-19] MEDS: PANTOPRAZOLE 40 MG VIAL IV SCH (08:26)
[2016-11-19] MEDS: NYSTATIN TOP POWDER 15 GM BOTTLE TP SCH ×2 (08:27→17:20)
[2016-11-19] MEDS: GENTAMICIN 0.1% OINT 15 GM TUBE TP SCH ×2 (08:27→20:51)
[2016-11-19] MEDS: CLOTRIMAZOLE 1% 15 GM TUBE TP SCH ×2 (08:27→17:20)
[2016-11-19] MEDS: MUPIROCIN OINT 2% 22 GM TUBE SCH ×2 (08:27→20:51)
[2016-11-19] MEDS: KEPPRA 500 MG in IV NS 100 ML IV SCH ×2 (08:55→20:54)
[2016-11-19] MEDS ORDERED: TPN BAG #3 IV PRN ×8 (09:30)
[2016-11-19] MEDS ORDERED: TPN BAG #4 IV PRN ×9 (09:30)
[2016-11-19] MEDS ORDERED: TPN BAG#3 IV PRN ×9 (09:30)
[2016-11-19] MEDS ORDERED: SECONDARY IV SET 1 EA INFUS.SET MC ONE ×2 (10:52→20:13)
[2016-11-19] MEDS: Magnesium 1GM/D5W 100ML PREMIX 100 ML IV SCH ×2 (11:04→14:01)
[2016-11-19] MEDS: POTASSIUM PHOSPHATE MM 7.5 MMOL in IV D5W 100 ML IV SCH ×4 (11:04→20:49)
[2016-11-19] MEDS: TOBRAMYCIN 80 MG/2 ML VIAL INH SCH ×2 (11:26→23:24)
--- NOTE | 2016-11-19 11:31 | NUR ---
RT Patient is on settings AC14 550 40% +0 . Patient is calm. HR fluctuating around 120bpm. Changed trach ties and gauze. Ventilator alarm are functioning and audible. Addendum: 11/19/16 at 1134 by CALLY HESTER RT Amended: Links added.
[2016-11-19] MEDS ORDERED: FILTER SET SAVER IV SET 1 EA INFUS.SET MC ONE (12:46)
--- NOTE | 2016-11-19 19:03 | NUR ---
RN NOTES PT RESTING COMFORTABLY IN BED, PATIENT NON VERBAL OPENS EYES, RESPIRATIONS EVEN AND UNLABORED ON CURRENT VENT SETTINGS. IN NO APPARENT PAIN OR DISCOMFORT, DRESSINGS TO LEFT LOWER EXTREMITY AND J TUBE SITE CLEAN DRY AND INTACT. ARMANI PICC LINE PATENT AND INTACT NO REDNESS OR INFILTRATION NOTED, KEPT CLEAN AND DRY, CALL LIGHT WITHIN EASY REACH, WILL ENDORSE TO NEXT SHIFT FOR CONTINUITY OF CARE
--- NOTE | 2016-11-20 | NUR ---
PHOTOGRAPHY INSTRUCTOR NOTE BS 92. NO COVERAGE NEEDED. WILL CONTINUE TO MONITOR.
[2016-11-20] MEDS: IPRATROPIUM NEB FS 0.5 MG/2.5 ML AMPUL.NEB IH SCH ×4 (01:01→20:21)
[2016-11-20] MEDS: ALBUTEROL FS 2.5 MG/3 ML VIAL.NEB IH SCH ×4 (01:01→20:21)
[2016-11-20] MEDS: ZOSYN IVPB 4.5 G in IV D5W 50ml IV SCH ×4 (05:04→23:28)
[2016-11-20] MEDS: BLOOD SUGAR DIAGNOSTIC 1 EACH STRIP IN SCH ×4 (05:05→23:28)
--- NOTE | 2016-11-20 06:16 | NUR ---
FUN HOUSE ATTENDANT NOTE PATIENT STABLE. KEPT CLEAN, DRY AND COMFORTABLE. WOUND CARE PERFORMED ORDERED. PT. TURNED AND REPOSITIONED EVERY TWO HOURS. BLOOD SUGAR 119, NO COVERAGE NEEDED. WILL ENDORSE RO DAY SHIFT FOR BLANCA.
[2016-11-20 06:45] VITALS: BP 135/75
[2016-11-20 06:51] VITALS: BP 104/72
[2016-11-20 06:58] LABS: BASOPHILS % (AUTO) 0.3 % (0.0-2.0); EOSINOPHILS % (AUTO) 0.8 % (0.0-6.0); HEMATOCRIT 27 % (39-51); HEMOGLOBIN 9.1 g/dL (13.5-17.5); MEAN CORPUSCULAR HEMOGLOBIN 30 PG (26.0-33.0); MEAN CORPUSCULAR HGB CONC 34 g/dl (31.0-36.0); MEAN CORPUSCULAR VOLUME 88 fL (80-96); MONOCYTES # (AUTO) 0.3 /CMM (0.1-1.30); MONOCYTES % (AUTO) 4.9 % (2.0-12.0); NEUTROPHILS # (AUTO) 4.4 /CMM (1.8-8.9); PLATELET COUNT (AUTO) 102 /CMM (150-450); RDW COEFFICIENT OF VARIATION 17.5 (11.5-15.0); RED BLOOD CELL COUNT(AUTO) 3.02 MIL/uL (4.5-6.0); WHITE BLOOD COUNT (AUTO) 5.7 K/uL (4.3-11.0)
--- NOTE | 2016-11-20 07:20 | NUR ---
RECREATION ESTABLISHMENT MANAGER NOTE PT IN BED, OBTUNDED, ON [facility] VENT WITH THE FF SETTING AC 14 TV 550 FIO2 40% PEEP 0, AMBU BAG AT BED SIDE, CLINICAL ALARMS CHECKED AND AUDIBLE, PT HAS RIGHT UPPER ARM PICC LINE-TRIPLE LUMEN IN PLACED, PATENT AND INTACT, GTUBE DRAINING INTO MAI BAG, AND J-TUBE ON CLAMPED WITH AN OSTOMY BAG TO COLLECT THE GREENISH TO YELLOWISH DRAINAGE. BLE OFFLOADED. ON TELE READING SINUS RHYTHM 90'S, NO FACIAL GRIMACE NOTED, APPEARS CALM AND COMFORTABLE, SAFETY PRECAUTIONS FOR FALL INITIATED CALL LIGHT IN REACH, WILL CONTINUE TO MONITOR
[2016-11-20 07:24] LABS: CALCIUM, SERUM 7.2 mg/dL (8.5-10.1); CREATININE 0.4 mg/dL (0.6-1.3); PHOSPHORUS 2.3 mg/dL (2.5-4.9); POTASSIUM 3.5 mmol/L (3.5-5.1)
[2016-11-20 08:12] VITALS: BP 135/85
[2016-11-20] MEDS: PANTOPRAZOLE 40 MG VIAL IV SCH (08:40)
[2016-11-20] MEDS: CLOTRIMAZOLE 1% 15 GM TUBE TP SCH ×2 (08:40→17:32)
[2016-11-20] MEDS: NYSTATIN TOP POWDER 15 GM BOTTLE TP SCH ×2 (08:41→17:44)
[2016-11-20] MEDS: MUPIROCIN OINT 2% 22 GM TUBE SCH ×2 (08:41→21:07)
[2016-11-20] MEDS: GENTAMICIN 0.1% OINT 15 GM TUBE TP SCH ×2 (08:42→21:07)
--- NOTE | 2016-11-20 09:07 | NUR ---
COPY HOLDER NOTES INFORMED IRAIS ELENA LABOR SPECIALIST RE: BLOOD SUGAR RESULTS WITHIN THE LAST 24 HOURS, PER LABOR SPECIALIST NO CHANGES ON THE TPN RATE AT THIS TIME, AND ALSO RELAYED TELE MONITOR RHYTHM OF SINUS TACHY 109, NO NEW ORDER AT THIS TIME. CONTINUE TO MONITOR.
[2016-11-20] MEDS: KEPPRA 500 MG in IV NS 100 ML IV SCH ×2 (09:50→21:06)
--- NOTE | 2016-11-20 10:40 | NUR ---
MAY MS NOTES DR. BABCOCK AND IRAIS ELENA TELEPHONE LINEWORKER SEEN AND EXAMINED THE PATIENT, DR. BABCOCK REMOVED THE J-TUBE AND GAVE INSTRUCTIONS TO KEEP PLUGGING THE J-TUBE SITE WITH GAUZE. PATIENT TURNED AND REPOSITIONED, AM CARE RENDERED, WOUND TREATMENT PROVIDED ORDERED, TPN INFUSING, ALL NEEDS ATTENDED, CALL LIGHT WITHIN REACH, CAREGIVER AT BEDSIDE, WILL COTNINUE TO MONITOR. Addendum: 11/20/16 at 1940 by NONA BAY RN CORRECTION: INVESTIGATIVE WRITER NOTES
[2016-11-20] MEDS ORDERED: IV SET PRIMARY PUMP SET 1 EA INFUS.SET MC ONE (10:41)
[2016-11-20] MEDS ORDERED: FILTER SET SAVER IV SET 1 EA INFUS.SET MC ONE (10:53)
[2016-11-20] MEDS: TOBRAMYCIN 80 MG/2 ML VIAL INH SCH ×2 (11:22→23:55)
[2016-11-20 12:43] VITALS: BP 124/72
[2016-11-20] MEDS ORDERED: TPN BAG #5 IV PRN ×9 (13:00)
[2016-11-20] MEDS ORDERED: SECONDARY IV SET 1 EA INFUS.SET MC ONE (14:27)
[2016-11-20] MEDS: POTASSIUM PHOSPHATE MM 7.5 MMOL in IV D5W 100 ML IV SCH ×2 (14:33→17:31)
[2016-11-20 16:00] VITALS: BP 132/74
--- NOTE | 2016-11-20 19:00 | NUR ---
EDGERMAN NOTES PATIENT IN BED, OBTUNDED, NO DISTRESS NOTED, TPN INFUSING AND TOLERATING WELL, SKIN CARE RENDERED, WOUND TREATMENT RENDERED, PREVIOUS J-TUBE SITE PACKED WITH GAUZE AND CHANGED EVERY 1-2 HOURS, SATURATED WITH GREEN AND SANGUINOUS DRAINAGE, PATIENT TURNED AND REPOSITIONED Q2HRS AND PRN, CALL LIGHT WITHIN REACH, WILL ENDORSE TO DATA ENTRY OPERATOR FOR BLANCA.
--- NOTE | 2016-11-20 19:55 | NUR ---
RECEIVED PATIENT, OBTUNDED, VENTILATOR DEPENDENT, NO RESPIRATORY DISTRESS, VENTILATOR IN GOOD WORKING CONDITION, CALM, PEG TUBE DRAINING WITH GREENISH FLUID, S/P J-TUBE REMOVAL, STOMA DRAINING WITH THIN, GREENISH LIQUID, PACKED WITH STERILE GAUZE. PICC LINE TO ARMANI IS PATENT AND INFUSING WELL WITH TPN. KEPT HOB ELEVATED, TALKED TO REGARDING CARE, KEPT SAFE AND COMFORTABLE, CALL LIGHT WITHIN REACH.
[2016-11-20 20:00] VITALS: BP 132/68
[2016-11-20] MEDS: INSULIN REGULAR, HUMAN 100 UNIT/ML 3 ML VIAL SQ PRN (23:37)
--- NOTE | 2016-11-20 23:38 | NUR ---
BG 92 MG/DL. NO INSULIN COVERAGE, J-TUBE STOMA PACKED WITH STERILE GAUZE, NOTED OOZING WITH DARK GREEN, THINK DRAINAGE.
[2016-11-21] VITALS (7 sets, daily range): BP systolic 138–148; BP diastolic 70–99
[2016-11-21] MEDS ORDERED: TPN BAG #5 IV PRN ×9
[2016-11-21] MEDS: IPRATROPIUM NEB FS 0.5 MG/2.5 ML AMPUL.NEB IH SCH ×4 (02:21→18:56)
[2016-11-21] MEDS: ALBUTEROL FS 2.5 MG/3 ML VIAL.NEB IH SCH ×4 (02:21→18:56)
[2016-11-21] MEDS ORDERED: SET RED CAP 1 EA INFUS.SET MC ONE ×2 (04:54→06:57)
[2016-11-21] MEDS ORDERED: FILTER [FOR TRIPLE MIX] SET 1 EA INFUS.SET MC ONE ×2 (04:55→21:27)
[2016-11-21] MEDS: ZOSYN IVPB 4.5 G in IV D5W 50ml IV SCH ×4 (05:36→23:42)
[2016-11-21] MEDS: BLOOD SUGAR DIAGNOSTIC 1 EACH STRIP IN SCH ×4 (05:55→23:42)
[2016-11-21] MEDS: INSULIN REGULAR, HUMAN 100 UNIT/ML 3 ML VIAL SQ PRN ×4 (06:00→23:56)
--- NOTE | 2016-11-21 06:01 | NUR ---
BG 73 MG/DL, NO INSULIN COVERAGE, TPN ON CONTINUOUS INFUSION, TOLERATED WELL
--- NOTE | 2016-11-21 06:33 | NUR ---
PATIENT IS AWAKE, NO SOB, NO RESPIRATORY DISTRESS, VENTILATOR IN GOOD WORKING CONDITION, NO DISTRESS, NO PAIN, M/B NO FACIAL GRIMACING, RIGHT UPPER ARM PICC LINE IS INFUSING WELL WITH TPN AT 49.95 ML/HR, TOLERATED WELL, HANG NEW BAG. G-TUBE DRAIN IS DRAINING GREEN FLUID, LEFT LOWER QUADRANT STOMA IS DRAINING INTERMITTENTLY WITH GREEN FLUID, PER MD, CONTINUE PACKING WITH GAUZE. GOOD PERINEAL CARE RENDERED, WOUND CARE PERFORMED, KEPT SAFE AND COMFORTABLE, CALL LIGHT WITHIN REACH.
[2016-11-21 07:47] LABS: INR 1.03 (0.87-1.13)
[2016-11-21 07:50] LABS: CALCIUM, SERUM 7.5 mg/dL (8.5-10.1); CREATININE 0.3 mg/dL (0.6-1.3); MAGNESIUM 1.8 mg/dL (1.8-2.4); PHOSPHORUS 2.6 mg/dL (2.5-4.9); POTASSIUM 3.9 mmol/L (3.5-5.1)
--- NOTE | 2016-11-21 08:00 | NUR ---
RN NOTES PT RECEIVED RESTING COMFORTABLY IN BED, PATIENT NON VERBAL OPENS EYES, RESPIRATIONS EVEN AND UNLABORED ON CURRENT VENT SETTINGS. IN NO APPARENT PAIN OR DISCOMFORT, DRESSINGS TO LEFT LOWER EXTREMITY AND J/G-TUBE SITE CLEAN DRY AND INTACT. ARMANI PICC LINE PATENT AND INTACT NO REDNESS OR INFILTRATION NOTED, KEPT CLEAN AND DRY WILL CONTINUE TO MONITOR
[2016-11-21] MEDS: PANTOPRAZOLE 40 MG VIAL IV SCH (08:48)
[2016-11-21] MEDS: NYSTATIN TOP POWDER 15 GM BOTTLE TP SCH ×2 (08:50→17:23)
[2016-11-21] MEDS: MUPIROCIN OINT 2% 22 GM TUBE SCH ×2 (08:50→21:11)
[2016-11-21] MEDS: GENTAMICIN 0.1% OINT 15 GM TUBE TP SCH ×2 (08:50→21:12)
[2016-11-21] MEDS: CLOTRIMAZOLE 1% 15 GM TUBE TP SCH ×2 (08:50→17:23)
[2016-11-21] MEDS: KEPPRA 500 MG in IV NS 100 ML IV SCH ×2 (09:38→21:10)
[2016-11-21] MEDS: TOBRAMYCIN 80 MG/2 ML VIAL INH SCH ×2 (11:12→23:02)
--- NOTE | 2016-11-21 11:52 | NUR ---
RN NOTES DR. RUST MADE AWARE OF GTUBE TO DRAIN NO GTUBE MEDICATION USAGE AT THIS TIME PER MD WILL DC ASPIRIN, WILL CONTINUE TO MONITOR
[2016-11-21] MEDS ORDERED: ASPIRIN 81 MG TAB.CHEW PO SCH (12:00)
[2016-11-21] MEDS ORDERED: TPN BAG #6 IV PRN ×19 (12:30→13:48)
--- NOTE | 2016-11-21 13:10 | NUR ---
RN NOTES TPN RATE INCREASED TO 70MLS/HR PER PHARMACY WILL CONTINUE TO MONITOR
[2016-11-21] MEDS ORDERED: TPN BAG #7 IV PRN ×9 (14:00)
--- NOTE | 2016-11-21 19:20 | NUR ---
RN NOTES PT RESTING COMFORTABLY, PATIENT NON VERBAL OPENS EYES, RESPIRATIONS EVEN AND UNLABORED ON CURRENT VENT SETTINGS. IN NO APPARENT PAIN OR DISCOMFORT, DRESSINGS TO LEFT LOWER EXTREMITY AND J/G-TUBE SITE CLEAN DRY AND INTACT. ARMANI PICC LINE PATENT AND INTACT NO REDNESS OR INFILTRATION NOTED, KEPT CLEAN AND DRY WILL CONTINUE TO MONITOR ENDORSED TO NEXT SHIFT FOR CONTINUITY OF CARE
--- NOTE | 2016-11-21 20:00 | NUR ---
RECEIVED PATIENT IN BED, AWAKE, VENT DEPENDENT, NO SOB, NO RESPIRATORY DISTRESS, VENTILATOR IN GOOD WORKING CONDITION, NOT IN APPARENT PAIN, NO FACIAL GRIMACING. ARMANI PICC LINE IS PATENT AND INFUSING WELL WITH TPN, TOLERATED WELL. PEG TUBE ATTACHED TO COLLECTION BAG IS DRAINING WHITISH FLUID, LEFT LOWER QUADRANT STOMA IS DRAINING WITH GREENISH LIQUID, LOOSELY COVERED WITH GAUZE, TO BE CHANGED WHEN SATURATED. SKIN AROUND STOMA IS DRY AND CLEAN, PROTECTED WITH GENTAMICIN. KEPT HOB ELEVATED, SAFE AND COMFORTABLE, CALL LIGHT WITHIN REACH.
--- NOTE | 2016-11-21 23:00 | NUR ---
NEW TPN AT 70 CC/HR WITH BG OF 211 MG/DL, GIVEN INSULIN 4 UNITS.
[2016-11-22] VITALS: BP 153/73
[2016-11-22] MEDS: ALBUTEROL FS 2.5 MG/3 ML VIAL.NEB IH SCH ×4 (00:55→19:53)
[2016-11-22] MEDS: IPRATROPIUM NEB FS 0.5 MG/2.5 ML AMPUL.NEB IH SCH ×4 (00:55→19:53)
--- NOTE | 2016-11-22 02:00 | NUR ---
PATIENT IN BED, AWAKE, GIVEN SPONGE BATH, WOUND CARE PERFORMED, GOOD PERINEAL CARE RENDERED, REPOSITIONED, EXTREMITIES OFFLOADED. LEFT LOWER QUADRANT STOMA IS DRAINING WITH GREENISH LIQUID, CHANGING GAUZE Q2HRS.
[2016-11-22 04:00] VITALS: BP 152/86
[2016-11-22] MEDS: ZOSYN IVPB 4.5 G in IV D5W 50ml IV SCH ×4 (05:43→23:36)
[2016-11-22] MEDS: BLOOD SUGAR DIAGNOSTIC 1 EACH STRIP IN SCH ×4 (05:43→23:50)
[2016-11-22] MEDS: INSULIN REGULAR, HUMAN 100 UNIT/ML 3 ML VIAL SQ PRN ×4 (06:05→23:42)
--- NOTE | 2016-11-22 06:39 | NUR ---
PATIENT IN BED, AWAKE, NON-VERBAL, NO DISTRESS, NO SOB, SUCTIONED PRN, NO ADVERSE CHANGE OF CONDITION DURING SHIFT, RIGHT UPPER ARM PICC LINE IS INFUSING WELL WITH TPN AT 70 CC/HR, ACCUCHECK PERFORMED Q 6 HRS, GIVEN INSULIN PER SLIDING SCALE, GOOD PERINEAL CARE PERFORMED, BM OF YELLOWISH STOOL X2, REPOSITIONED SCHEDULED. ALL DUE MEDICATIONS GIVEN, KEPT HOB ELEVATED, CHANGED DRESSING TO LEFT LOWER QUADRANT STOMA Q2HRS. NEEDS ATTENDED, CALL LIGHT WITHIN REACH.
[2016-11-22 07:11] VITALS: BP 130/66
[2016-11-22 08:00] VITALS: BP 130/66
[2016-11-22] MEDS: PANTOPRAZOLE 40 MG VIAL IV SCH (08:26)
[2016-11-22] MEDS: NYSTATIN TOP POWDER 15 GM BOTTLE TP SCH ×2 (08:27→18:28)
[2016-11-22] MEDS: GENTAMICIN 0.1% OINT 15 GM TUBE TP SCH ×2 (08:27→22:01)
[2016-11-22] MEDS: MUPIROCIN OINT 2% 22 GM TUBE SCH ×2 (08:27→22:00)
[2016-11-22] MEDS: CLOTRIMAZOLE 1% 15 GM TUBE TP SCH ×2 (08:27→18:28)
[2016-11-22 09:19] LABS: CALCIUM, SERUM 7.6 mg/dL (8.5-10.1); CREATININE 0.4 mg/dL (0.6-1.3); MAGNESIUM 1.8 mg/dL (1.8-2.4); PHOSPHORUS 1.9 mg/dL (2.5-4.9); POTASSIUM 4.8 mmol/L (3.5-5.1)
[2016-11-22] MEDS: KEPPRA 500 MG in IV NS 100 ML IV SCH ×2 (09:52→21:59)
[2016-11-22] MEDS: TOBRAMYCIN 80 MG/2 ML VIAL INH SCH ×2 (10:38→23:59)
[2016-11-22] MEDS ORDERED: TPN BAG #7 IV PRN ×18 (10:54→11:30)
[2016-11-22] MEDS ORDERED: TPN BAG #8 IV PRN ×7 (11:00)
[2016-11-22] MEDS ORDERED: FILTER SET SAVER IV SET 1 EA INFUS.SET MC ONE (13:36)
[2016-11-22] MEDS ORDERED: IV SET PRIMARY PUMP SET 1 EA INFUS.SET MC ONE ×2 (13:36→21:56)
[2016-11-22 16:00] VITALS: BP 123/77
[2016-11-22] MEDS ORDERED: SECONDARY IV SET 1 EA INFUS.SET MC ONE (18:47)
--- NOTE | 2016-11-22 18:49 | NUR ---
RN NOTES PT RESTING COMFORTABLY IN BED, AT BEDSIDE, PATIENT NON VERBAL OPENS EYES, RESPIRATIONS EVEN AND UNLABORED ON CURRENT VENT SETTINGS. IN NO APPARENT PAIN OR DISCOMFORT, DRESSINGS TO LEFT LOWER EXTREMITY AND J/G-TUBE SITE CLEAN DRY AND INTACT. ARMANI PICC LINE PATENT AND INTACT NO REDNESS OR INFILTRATION NOTED, KEPT CLEAN AND DRY WILL CONTINUE TO MONITOR AND WILL ENDORSE TO NEXT SHIFT FOR CONTINUITY OF CARE Addendum: 11/22/16 at 1850 by FREYA BRUNO RN RN NOTES ALL DUE MEDICATIONS GIVEN WITH NO ASE NOTED WILL CONTINUE TO MONITOR
--- NOTE | 2016-11-22 19:30 | NUR ---
RN NOTES RECEIVED PT. AWAKE , OBTUNDED, AT BEDSIDE, SR ON TELE MONITOR HR-92, VENT DEPENDENT, TPN RUNNING @ 70ML/HR, PEG TUBE CONNECTED TO DRAINAGE, CALL LIGHT WITHIN REACH, SDIERAILS UPX2 CONTINUE TO MONITOR
[2016-11-22 20:00] VITALS: BP 108/93
--- NOTE | 2016-11-22 21:00 | NUR ---
RN NOTES SPONGE BATH RENDERED
[2016-11-22] MEDS ORDERED: IV NS 0.9% 250 ML IV ONE (21:51)
[2016-11-23] VITALS: BP 117/73
[2016-11-23] MEDS: ALBUTEROL FS 2.5 MG/3 ML VIAL.NEB IH SCH ×4 (01:43→20:23)
[2016-11-23] MEDS: IPRATROPIUM NEB FS 0.5 MG/2.5 ML AMPUL.NEB IH SCH ×4 (01:44→20:23)
[2016-11-23] MEDS ORDERED: IV SET PRIMARY PUMP SET 1 EA INFUS.SET MC ONE (03:31)
[2016-11-23 04:00] VITALS: BP 112/72
[2016-11-23] MEDS: ZOSYN IVPB 4.5 G in IV D5W 50ml IV SCH ×4 (05:21→23:19)
[2016-11-23] MEDS: INSULIN REGULAR, HUMAN 100 UNIT/ML 3 ML VIAL SQ PRN ×4 (05:32→23:25)
[2016-11-23] MEDS: BLOOD SUGAR DIAGNOSTIC 1 EACH STRIP IN SCH ×4 (05:34→23:25)
[2016-11-23] MEDS ORDERED: Z GUARD REMEDY 4 OZ OINT TP ONE (05:37)
--- NOTE | 2016-11-23 06:56 | NUR ---
RN NOTES AWAKE , MORNING CARE RENDERED, NOT IN DISTRESS, DRESSING ON THE ABDOMEN DRY AND INTACT, PT. NEEDS ATTENDED. ENDORSED TO [facility] NURSE FOR CONTINUITY OF CARE
[2016-11-23 07:37] LABS: CALCIUM, SERUM 7.7 mg/dL (8.5-10.1); CREATININE 0.4 mg/dL (0.6-1.3); MAGNESIUM 1.8 mg/dL (1.8-2.4); PHOSPHORUS 2.1 mg/dL (2.5-4.9); POTASSIUM 3.3 mmol/L (3.5-5.1)
--- NOTE | 2016-11-23 07:43 | NUR ---
FISH SMOKER NOTES RECEIVED PATIENT IN BED, OBTUNDED, IN NO APPARENT DISTRESS, NO SOB NO FACIAL GRIMACING. VENT SETTINGS ORDERED,OM TELE MONITORING SR HR95. G TUBE NOT PATENT, DRAINING NOT MAI CATH. RIGHT UPPER ARM PICC LINE PATENT, INFUSING TPN AT 69.21 ML/HR. ALL NEEDS MET, KEPT CLEAN AND DRY.
[2016-11-23] MEDS: PANTOPRAZOLE 40 MG VIAL IV SCH (08:55)
[2016-11-23] MEDS: MUPIROCIN OINT 2% 22 GM TUBE SCH (08:55)
[2016-11-23] MEDS: CLOTRIMAZOLE 1% 15 GM TUBE TP SCH ×2 (08:56→17:04)
[2016-11-23] MEDS: NYSTATIN TOP POWDER 15 GM BOTTLE TP SCH ×2 (08:57→17:03)
[2016-11-23] MEDS: GENTAMICIN 0.1% OINT 15 GM TUBE TP SCH ×2 (08:57→20:35)
[2016-11-23] MEDS: KEPPRA 500 MG in IV NS 100 ML IV SCH ×2 (09:10→20:35)
--- NOTE | 2016-11-23 09:23 | NUR ---
Patient received trached on mechanical vent. Breath sounds equal bilateral. Breathing treatment given as ordered and tolerated well. No adverse reactions noted. Vent plugged into red outlet and alarms set and functioning. Ambu bag at the bed side. Patient suctioned PRN.
[2016-11-23] MEDS ORDERED: TPN ABG IV PRN ×7 (09:30)
[2016-11-23] MEDS ORDERED: TPN IV PRN ×9 (09:30)
[2016-11-23] MEDS ORDERED: SECONDARY IV SET 1 EA INFUS.SET MC ONE (09:50)
[2016-11-23] MEDS: POTASSIUM CL. PREMIX PERIPHER. 50 ML IV SCH ×4 (09:56→15:08)
[2016-11-23] MEDS: TOBRAMYCIN 80 MG/2 ML VIAL INH SCH (10:26)
--- NOTE | 2016-11-23 10:49 | NUR ---
SAILING OFFICER NOTES WOUND TREATMENTS DONE ORDERED.
[2016-11-23 12:00] VITALS: BP 115/69
[2016-11-23 15:45] VITALS: BP 120/72
--- NOTE | 2016-11-23 19:00 | NUR ---
RE TELE NOTES PATIENT IB BED, OBTUNDED, IN NO APPARENT DISTRESS, NO SOB NOTED, NO FACIAL GRIMACING NOTED. ALL DUE MEDS GIVEN, ALL NEEDS MET, KEPT CLEAN AND DRY. VENT SETTINGS ORDERED, PICC LINE ON ARMANI PATENT. G TUBE AND J TUBE NOT WORKING, BOTH DRAINING TO GRAVITY. WILL ENDORSE CARE TO PM SHIFT.
--- NOTE | 2016-11-23 19:30 | NUR ---
REPORTS DEVELOPER NOTE RECEIVED PATIENT FROM DAY SHIFT, PATIENT IS OBTUNDED, VENT-DEPENDENT, NO S/S OF RESPIRATORY DISTRESS AND NO FACIAL GRIMACE NOTED AT THIS TIME. PICC LINE ON RIGHT UPPER ARM IS PATENT AND INTACT, TPN IS RUNNING. ABDOMINAL DRESSING PRESENT DUE TO JTUBE DRAINAGE, MAI CATH IS CONNECTED WITH G TUBE FOR DRAINAGE WELL. TELE ST 103. SRX2, BED IN LOW POSITION, CALL LIGHT WITHIN REACH, WILL CONTINUE TO MONITOR PATIENT.
[2016-11-23 20:00] VITALS: BP 112/63
[2016-11-24] VITALS (14 sets, daily range): BP systolic 101–152; BP diastolic 60–86
[2016-11-24] MEDS: TOBRAMYCIN 80 MG/2 ML VIAL INH SCH ×3 (00:13→23:04)
[2016-11-24] MEDS: IPRATROPIUM NEB FS 0.5 MG/2.5 ML AMPUL.NEB IH SCH ×4 (02:19→21:20)
[2016-11-24] MEDS: ALBUTEROL FS 2.5 MG/3 ML VIAL.NEB IH SCH ×4 (02:19→21:20)
[2016-11-24] MEDS: ZOSYN IVPB 4.5 G in IV D5W 50ml IV SCH ×4 (05:26→23:24)
[2016-11-24] MEDS: BLOOD SUGAR DIAGNOSTIC 1 EACH STRIP IN SCH ×4 (05:26→23:23)
[2016-11-24] MEDS: INSULIN REGULAR, HUMAN 100 UNIT/ML 3 ML VIAL SQ PRN ×4 (05:27→23:23)
--- NOTE | 2016-11-24 06:39 | NUR ---
DISTANCE LEARNING UNIT LEADER NOTE PATIENT IS RESTING IN BED, NO ACUTE DISTRESS NOTED DURING THE UNDERWATER PHOTOGRAPHER. CHANGED J TUBE SITE DRESSING FREQUENTLY, GREEN DRAINAGE PRESENT. PICC LINE IS PATENT, TPN IS RUNNING. G TUBE MAI CATH, 20ML OF DRAINAGE NOTED. NO S/S OF RESPIRATORY DISTRESS, CHANGED POSITION Q2H. ALL DUE MEDS GIVEN, MORNING CARE RENDERED, TELE MONITOR ST 110. WILL ENDORSE TO DAY SHIFT NURSE FOR BLANCA.
[2016-11-24 07:18] LABS: HEMATOCRIT 23 % (39-51); HEMOGLOBIN 7.8 g/dL (13.5-17.5); MEAN CORPUSCULAR HEMOGLOBIN 30 PG (26.0-33.0); MEAN CORPUSCULAR HGB CONC 33 g/dl (31.0-36.0); MEAN CORPUSCULAR VOLUME 90 fL (80-96); PLATELET COUNT (AUTO) 102 /CMM (150-450)
[2016-11-24 07:25] LABS: CALCIUM, SERUM 7.7 mg/dL (8.5-10.1); CREATININE 0.4 mg/dL (0.6-1.3); POTASSIUM 3.6 mmol/L (3.5-5.1)
[2016-11-24 07:46] LABS: BAND % (MANUAL) 1 % (0.0-5.0); LYMPHOCYTES % (MANUAL) 15 % (16-48); MONOCYTES % (MANUAL) 9 % (0-11.0); NEUTROPHILS % (MANUAL) 75 (42-76)
--- NOTE | 2016-11-24 07:47 | NUR ---
CHEMISTRY QUALITY CONTROL TECHNICIAN NOTES RECEIVED PATIENT IN BED, NO APPARENT DISTRESS NOTED, NO FACIAL GRIMACING NOTED. VENT SETTINGS CORRECT, ORDERED. PICC LINE OF ARMANI PATENT, TPN INFUSING. ON TELE MONITORING SINUS TACH HR 102. J TUBE LEAKING, DRAINING BY GRAVITY, G TUBE NOT PATENT, DRAINING INTO MAI BAG. ALL NEEDS MET, KEPT CLEAN AND DRY.
[2016-11-24] MEDS: KEPPRA 500 MG in IV NS 100 ML IV SCH ×2 (09:08→21:16)
[2016-11-24] MEDS: PANTOPRAZOLE 40 MG VIAL IV SCH (09:08)
[2016-11-24] MEDS: GENTAMICIN 0.1% OINT 15 GM TUBE TP SCH ×2 (09:08→21:16)
[2016-11-24] MEDS: NYSTATIN TOP POWDER 15 GM BOTTLE TP SCH ×2 (09:09→16:11)
[2016-11-24] MEDS: CLOTRIMAZOLE 1% 15 GM TUBE TP SCH ×2 (09:09→16:11)
--- NOTE | 2016-11-24 10:08 | NUR ---
MARKETING CLERK NOTES WOUNDS TREATMENTS DONE ORDERED.
[2016-11-24] MEDS ORDERED: SECONDARY IV SET 1 EA INFUS.SET MC ONE (10:10)
[2016-11-24] MEDS: Magnesium 1GM/D5W 100ML PREMIX 100 ML IV SCH ×2 (10:14→11:15)
[2016-11-24] MEDS ORDERED: TPN BAG #10 IV PRN ×8 (10:32)
[2016-11-24] MEDS ORDERED: TPN BAG #12 IV PRN ×7 (11:00)
[2016-11-24] MEDS ORDERED: TPN BAG #11 IV PRN ×10 (11:00)
[2016-11-24] MEDS ORDERED: FILTER SET SAVER IV SET 1 EA INFUS.SET MC ONE (11:55)
[2016-11-24] MEDS ORDERED: IV SET PRIMARY PUMP SET 1 EA INFUS.SET MC ONE (11:55)
--- NOTE | 2016-11-24 15:30 | NUR ---
NAUTICAL INSTRUMENT MECHANIC NOTES RECEIVED NEW TELEPHONE ORDERS FROM DR DE JESUS, FOR OCCULT BLOOD X3, IRON,TIBC, FERRITIN, AND 20 CRYSTAL MOLES OF SODIUM PHOS. ALL ORDERS NOTED AND CARRIED OUT
--- NOTE | 2016-11-24 16:00 | NUR ---
PBX SUPERVISOR NOTES PER PHARMACY SODIUM PHOS WAS ADDED TO TPN BAG, PER PHARMACY D/C THE BOLUS SODIUM PHOS ORDERS.
[2016-11-24] MEDS ORDERED: IV NS 0.9% 250 ML IV ONE (17:17)
[2016-11-24] MEDS ORDERED: BLOOD IV SET 1 EA INFUS.SET MC ONE (17:17)
--- NOTE | 2016-11-24 18:00 | NUR ---
COUNTER HOP NOTES BLOOD TRANSFUSION STARTED, 2 RNS CHECK DONE, NO LEAKING OR CLOTS NOTED, WILL CONTINUE TO MONITOR. Addendum: 11/24/16 at 1958 by LINETTE ELENA RN CONSENTS SIGNED IN CHART
[2016-11-24] MEDS ORDERED: Sodium Phosphate 5 MMOL in IV D5W 100 ML IV ONE ×3 (18:30→22:30)
--- NOTE | 2016-11-24 18:30 | NUR ---
APPLICATION MANAGER NOTES PATIENT TOLERATING BLOOD TRANSFUSION WELL, NO S/S OF REACTION NOTED. VS STABLE. WILL CONTINUE TO MONITOR.
[2016-11-24] MEDS ORDERED: NA PHOS,M-B/NA PHOS,DI-BA 1 EA ENEMA RC PRN (19:00)
--- NOTE | 2016-11-24 19:25 | NUR ---
TELE/RN NOTES RECEIVED PT. LYING IN BED. PT. IS RESTING AND OBTUNDED. BREATHING EVEN AND UNLABORED. PT. IS VENT/TRACH DEPENDENT. CURRENT VENT SETTINGS: AC 14, FIO2 40%, TV 550, PEEP 0. PT. WITH EXTERNAL PRODUCTION PLANNER PRESENT AND INTACT. CURRENT RHYTHM = SINUS RHYTHM HR 96. PT. WITH RIGHT UPPER ARM PICC PRESENT, PATENT AND INTACT ADMINISTERING TO PT. 1 UNIT PRBC. PER DAYSHIFT NURSE PT. VITAL SIGNS STABLE NO ADVERSE REACTIONS NOTED THROUGHOUT TRANSFUSION. WILL CONTINUE TO MONITOR PT VITALS AND FOR ANY ADVERSE REACTIONS. PT. WITH TPN BAG #10 HANGING AT PT. BEDSIDE. PER DAYSHIFT NURSE TPN HELD WHILE PT. RECEIVING BLOOD TRANSFUSION. WILL CONTINUE TPN ONCE TRANSFUSION IS COMPLETE. PT. WITH PEG TUBE PRESENT DRAINING TO GRAVITY GREEN FLUID INTO ATTACHED DRAINAGE BAG. PT. PRESENT AT BEDSIDE. BED IN LOWEST POSITION, SIDE RAILS UP X3, CALL LIGHT WITHIN REACH, WILL CONTINUE TO MONITOR.
--- NOTE | 2016-11-24 19:51 | NUR ---
HOSPITAL MEDICAL BILLER CLOSING NOTES PATIENT IN BED,OBTUNDED, IN NO APPARENT DISTRESS. VENT SETTINGS ORDERED, ALL DUE MEDS GIVE, ALL NEEDS MET, KEPT CLEAN AND DRY. G TUBE NOT PATENT DRAINING BY GRAVITY INTO MAI BAG, S/P J TUBE REMOVAL, STOMA STILL LEAKING. ARMANI PICC LINE PATENT. ONGOING BLOOD TRANSFUSION, TOLERATING WELL, NO S/S OF REACTION NOTED, VS STABLE. WILL ENDORSE CARE TO PM SHIFT.
[2016-11-25] VITALS (7 sets, daily range): BP systolic 108–141; BP diastolic 64–86
[2016-11-25] MEDS ORDERED: Sodium Phosphate 5 MMOL in IV D5W 100 ML IV ONE (00:30)
[2016-11-25] MEDS: IPRATROPIUM NEB FS 0.5 MG/2.5 ML AMPUL.NEB IH SCH ×4 (02:15→20:27)
[2016-11-25] MEDS: ALBUTEROL FS 2.5 MG/3 ML VIAL.NEB IH SCH ×4 (02:15→20:27)
[2016-11-25] MEDS: BLOOD SUGAR DIAGNOSTIC 1 EACH STRIP IN SCH ×4 (05:42→23:55)
[2016-11-25] MEDS: INSULIN REGULAR, HUMAN 100 UNIT/ML 3 ML VIAL SQ PRN ×4 (05:42→23:58)
[2016-11-25] MEDS: ZOSYN IVPB 4.5 G in IV D5W 50ml IV SCH ×4 (05:43→23:58)
[2016-11-25 06:35] LABS: BASOPHILS % (AUTO) 0.6 % (0.0-2.0); HEMATOCRIT 27 % (39-51); HEMOGLOBIN 9.2 g/dL (13.5-17.5); MEAN CORPUSCULAR HEMOGLOBIN 31 PG (26.0-33.0); MEAN CORPUSCULAR HGB CONC 34 g/dl (31.0-36.0); MEAN CORPUSCULAR VOLUME 90 fL (80-96); MONOCYTES # (AUTO) 0.3 /CMM (0.1-1.30); MONOCYTES % (AUTO) 7.3 % (2.0-12.0); NEUTROPHILS # (AUTO) 2.9 /CMM (1.8-8.9); NEUTROPHILS % (AUTO) 68.1 % (43.0-81.0); PLATELET COUNT (AUTO) 108 /CMM (150-450); RDW COEFFICIENT OF VARIATION 16.9 (11.5-15.0); RED BLOOD CELL COUNT(AUTO) 3.02 MIL/uL (4.5-6.0); WHITE BLOOD COUNT (AUTO) 4.3 K/uL (4.3-11.0)
[2016-11-25 06:51] LABS: CALCIUM, SERUM 7.7 mg/dL (8.5-10.1); CREATININE 0.4 mg/dL (0.6-1.3); MAGNESIUM 1.9 mg/dL (1.8-2.4); PHOSPHORUS 2.3 mg/dL (2.5-4.9); POTASSIUM 3.5 mmol/L (3.5-5.1)
--- NOTE | 2016-11-25 06:55 | NUR ---
TELE/RN NOTES PT. LYING IN BED RESTING. BREATHING EVEN AND UNLABORED. PT. IS VENT/TRACH DEPENDENT. CURRENT VENT SETTINGS: AC 14, FIO2 40%, TV 550, PEEP 0. PT. WITH EXTERNAL RELIEF OPERATOR PRESENT AND INTACT. CURRENT RHYTHM = SINUS RHYTHM HR 89. PT. WITH RIGHT UPPER ARM PICC PRESENT, PATENT AND INTACT ADMINISTERING TO TPN BAG #11 @ 70ML/HR. PT. WITH PEG TUBE PRESENT DRAINING TO GRAVITY GREEN FLUID INTO ATTACHED DRAINAGE BAG. ALL PT. NEEDS MET. TURNED AND REPOSITIONED Q2H AND NEEDED. BED IN LOWEST POSITION, SIDE RAILS UP X3, CALL LIGHT WITHIN REACH, WILL ENDORSE TO DAYSHIFT NURSE FOR CONTINUITY OF CARE.
[2016-11-25] MEDS ORDERED: IV SET PRIMARY PUMP SET 1 EA INFUS.SET MC ONE ×2 (06:56→23:41)
[2016-11-25] MEDS ORDERED: FILTER SET SAVER IV SET 1 EA INFUS.SET MC ONE ×2 (06:56→23:42)
--- NOTE | 2016-11-25 07:30 | NUR ---
FINANCIAL SERVICE PROFESSIONAL NOTES PT IN BED, ASLEEP, NO SIGN OF PAIN OR DISTRESS, VENT IN PLACE, TPN INFUSING WELL, KEPT BOTH HEELS ELEVATED, KEPT COMFORTABLE AND SOFTBALL UMPIRE BED.
--- NOTE | 2016-11-25 08:30 | NUR ---
MS RN NOTES RECEIVED PATIENT NON VERBAL. NO S/S PAIN, SOB, DIFFICULTY BREATHING. TPN RUNNING ORDERED. VENT SETTING APPROPRIATE. SKIN CLEANSED. OLD JTUBE SITE DRAINING GREEN FOUL SMELLING FLUID. CHANGED DRESSING. G TUBE TO DRAINAGE. PATIENT APPEARS AT BASELINE AND STABLE. REPOSITIONED. HEELS AND ELBOWS OFFLOADED. WILL ROUND Q2H OR LESS PER NEEDS.
[2016-11-25] MEDS: CLOTRIMAZOLE 1% 15 GM TUBE TP SCH ×2 (09:18→17:16)
[2016-11-25] MEDS: GENTAMICIN 0.1% OINT 15 GM TUBE TP SCH ×2 (09:18→21:25)
[2016-11-25] MEDS: NYSTATIN TOP POWDER 15 GM BOTTLE TP SCH ×2 (09:19→17:11)
[2016-11-25] MEDS: PANTOPRAZOLE 40 MG VIAL IV SCH (09:21)
[2016-11-25] MEDS: KEPPRA 500 MG in IV NS 100 ML IV SCH ×2 (09:21→21:24)
[2016-11-25] MEDS: Z GUARD REMEDY 2 OZ OINT TP PRN ×3 (09:22→17:12)
[2016-11-25] MEDS: TOBRAMYCIN 80 MG/2 ML VIAL INH SCH ×2 (11:13→23:11)
[2016-11-25] MEDS ORDERED: VITS A AND D/WHITE PET/LANOLIN 5 GM PACKET TP SCH (11:30)
--- NOTE | 2016-11-25 12:00 | NUR ---
VAT HOUSE SUPERVISOR NOTES OB STOOL COLLECTED
[2016-11-25] MEDS ORDERED: VITAMINS A AND D 56.7 GM TUBE TP PRN (12:30)
[2016-11-25] MEDS ORDERED: TPN BAG #14 IV PRN ×7 (13:00)
[2016-11-25] MEDS ORDERED: TPN BAG #13 IV PRN ×10 (13:30)
--- NOTE | 2016-11-25 15:38 | NUR ---
Pt has had an uneventful shift. BS are bilaterally equal with some rhonchi requiring tracheal suction PRN. No vent changes ordered by MD. Endotracheal tube inline suction via li tolerated well. HHN tx given Q6 inline. Placed new HME. Addendum: 11/25/16 at 1539 by STEPHANIE NARVAEZ RT Amended: Links added.
--- NOTE | 2016-11-25 16:30 | NUR ---
PRODUCT SAFETY TEST ENGINEER NOTES NOTIFIED IRAIS PATIENT POSITIVE OB STOOL. NO NEW ORDERS
[2016-11-25] MEDS ORDERED: IV NS 0.9% 250 ML IV ONE (16:56)
[2016-11-25] MEDS: HYDROGEL DRESSING 90 GM TUBE TP PRN (17:12)
--- NOTE | 2016-11-25 18:59 | NUR ---
ELEMENTARY SUPERVISOR CLOSING PATIENT STABLE AT BASELINE NO CHANGES. ALL DUE MEDS GIVEN AND ALL NEEDS ATTENDED TO. PATIENT SKIN CLEANSED AND ALL DRESSING CHANGED. PATIENT WAS REPOSITIONED Q2H AND HEELS AND ELBOWS OFFLOADED THROUGHOUT SHIFT. TPN INFUSING ORDERED NO COMPLICATIONS. CARE ENDORSED TO MAY PATEL AT THIS TIME FOR BLAN[place]
--- NOTE | 2016-11-25 19:15 | NUR ---
TELE/RN NOTES RECEIVED PT. LYING IN BED. PT. IS RESTING AND OBTUNDED. PT. IS VENT/TRACH DEPENDENT. BREATHING EVEN AND UNLABORED. CURRENT VENT SETTINGS: AC 14, FIO2 40%, TV 550, PEEP 0. PT. WITH EXTERNAL WIRELESS FIELD TECHNICIAN PRESENT AND INTACT. CURRENT RHYTHM = SINUS RHYTHM HR 89. PT. WITH RIGHT UPPER ARM PICC PRESENT, PATENT AND INTACT ADMINISTERING TO PT. TPN BAG #11 PT. WITH PEG TUBE PRESENT DRAINING TO GRAVITY GREEN FLUID INTO ATTACHED DRAINAGE BAG. PT. PRESENT AT BEDSIDE. BED IN LOWEST POSITION, SIDE RAILS UP X3, CALL LIGHT WITHIN REACH, WILL CONTINUE TO MONITOR.
[2016-11-26] VITALS: BP 131/76
[2016-11-26] MEDS: IPRATROPIUM NEB FS 0.5 MG/2.5 ML AMPUL.NEB IH SCH ×4 (02:34→19:51)
[2016-11-26] MEDS: ALBUTEROL FS 2.5 MG/3 ML VIAL.NEB IH SCH ×4 (02:34→19:51)
[2016-11-26 04:00] VITALS: BP 143/78
[2016-11-26] MEDS: BLOOD SUGAR DIAGNOSTIC 1 EACH STRIP IN SCH ×4 (05:38→23:38)
[2016-11-26] MEDS: INSULIN REGULAR, HUMAN 100 UNIT/ML 3 ML VIAL SQ PRN ×4 (05:39→23:41)
[2016-11-26] MEDS: ZOSYN IVPB 4.5 G in IV D5W 50ml IV SCH ×4 (05:40→23:38)
--- NOTE | 2016-11-26 06:38 | NUR ---
TELE/RN NOTES PT. LYING IN BED RESTING. PT. IS VENT/TRACH DEPENDENT. BREATHING EVEN AND UNLABORED. CURRENT VENT SETTINGS: AC 14, FIO2 40%, TV 550, PEEP 0. PT. WITH EXTERNAL HOSPITAL COORDINATOR PRESENT AND INTACT. CURRENT RHYTHM = SINUS RHYTHM HR 87. PT. WITH RIGHT UPPER ARM PICC PRESENT, PATENT AND INTACT ADMINISTERING TO PT. TPN BAG #12 ALL PT. NEEDS MET. PT. OFFLOADED. TURNED AND REPOSITIONED Q2H AND NEEDED. BED IN LOWEST POSITION, SIDE RAILS UP X3, CALL LIGHT WITHIN REACH, WILL ENDORSE TO DAYSHIFT NURSE FOR CONTINUITY OF CARE.
[2016-11-26 06:54] VITALS: BP 130/78
[2016-11-26 07:14] LABS: BASOPHILS % (AUTO) 0.6 % (0.0-2.0); HEMATOCRIT 28 % (39-51); HEMOGLOBIN 9.4 g/dL (13.5-17.5); LYMPHOCYTES % (AUTO) 24.9 % (20.0-44.0); MEAN CORPUSCULAR HEMOGLOBIN 31 PG (26.0-33.0); MEAN CORPUSCULAR HGB CONC 33 g/dl (31.0-36.0); MEAN CORPUSCULAR VOLUME 91 fL (80-96); MONOCYTES # (AUTO) 0.2 /CMM (0.1-1.30); MONOCYTES % (AUTO) 5.8 % (2.0-12.0); NEUTROPHILS # (AUTO) 2.8 /CMM (1.8-8.9); NEUTROPHILS % (AUTO) 67.7 % (43.0-81.0); PLATELET COUNT (AUTO) 116 /CMM (150-450); WHITE BLOOD COUNT (AUTO) 4.1 K/uL (4.3-11.0)
--- NOTE | 2016-11-26 07:20 | NUR ---
ART INSTALLER NOTES PATIENT IN BED, RESTING. PT. IS VENT/TRACH DEPENDENT. BREATHING EVEN AND UNLABORED. CURRENT VENT SETTINGS: AC 14, FIO2 40%, TV 550, PEEP 0. AND TOLERATING WELL, PATIENT ON TELE MONITOR WITH CURRENT RHYTHM OF SINUS RHYTHM HR IN THE 80S. PT. WITH RIGHT UPPER ARM PICC PRESENT, PATENT AND INTACT ADMINISTERING TO PT. TPN BAG #12 INFUSING, NEEDS ATTENDED AND MET. PT. OFFLOADED. CALL LIGHT WITHIN REACH, WILL CONTINUE TO MONITOR.
[2016-11-26 08:11] LABS: ALBUMIN 1.5 g/dL (3.4-5.0); BILIRUBIN,DIRECT 0.3 mg/dL (0.0-0.2); BILIRUBIN,TOTAL 0.9 mg/dL (0.2-1.0); CALCIUM, SERUM 7.7 mg/dL (8.5-10.1); CREATININE 0.5 mg/dL (0.6-1.3); MAGNESIUM 1.8 mg/dL (1.8-2.4); PHOSPHORUS 2.4 mg/dL (2.5-4.9); TOTAL PROTEIN, SERUM 5.7 g/dL (6.4-8.2)
[2016-11-26] MEDS: CLOTRIMAZOLE 1% 15 GM TUBE TP SCH ×2 (09:05→16:21)
[2016-11-26] MEDS: NYSTATIN TOP POWDER 15 GM BOTTLE TP SCH ×2 (09:06→16:21)
[2016-11-26] MEDS: GENTAMICIN 0.1% OINT 15 GM TUBE TP SCH ×2 (09:06→21:04)
[2016-11-26] MEDS: KEPPRA 500 MG in IV NS 100 ML IV SCH ×2 (09:08→21:03)
[2016-11-26] MEDS: PANTOPRAZOLE 40 MG VIAL IV SCH (09:09)
[2016-11-26 10:12] LABS: POTASSIUM 3.7 mmol/L (3.5-5.1)
[2016-11-26] MEDS: TOBRAMYCIN 80 MG/2 ML VIAL INH SCH ×2 (11:27→23:08)
[2016-11-26] MEDS: Z GUARD REMEDY 2 OZ OINT TP PRN (11:35)
[2016-11-26] MEDS ORDERED: SECONDARY IV SET 1 EA INFUS.SET MC ONE (11:36)
[2016-11-26 12:00] VITALS: BP 120/64
--- NOTE | 2016-11-26 12:00 | NUR ---
WILDLIFE REHABILITATOR NOTES AM CARE PROVIDED, TURNED AND REPOSITIONED, WOUND TREATMENT RENDERED, DRESSINGS CHANGED, ALL NEEDS ATTENDED AND MET, IVF AND TPN INFUSING, CALL LIGHT WITHINR EACH, WILL CONTINUE TO MONITOR.
[2016-11-26] MEDS ORDERED: TPN BAG #13 IV PRN ×10 (12:34)
[2016-11-26] MEDS ORDERED: TPN BAG #14 IV PRN ×8 (12:38)
[2016-11-26] MEDS ORDERED: TPN BAG #15 IV PRN ×10 (13:00)
[2016-11-26 16:00] VITALS: BP 122/67
--- NOTE | 2016-11-26 19:49 | NUR ---
PROCEDURE MANAGER NOTES NO SIGNIFICANT CHANGE THIS SHIFT, NO SOB OR DISTRESS NOTED, TPN INFUSING, TURNED AND REPOSITIONED, DRESSING CHANGED CHANGED Q1-2 HOURS FROM PREVIOUS J-TUBE SITE, WOUND TREATMENT RENDERED, OFFLOADED, ALL NEEDS ATTENDED AND MET, CALL LIGHT WITHIN REACH, WILL ENDORSE TO SECURITY VEHICLE PATROL OFFICER FOR BLANCA.
--- NOTE | 2016-11-26 19:50 | NUR ---
RN NOTES RECEIVED PT ASLEEP, HOB ELEVATED, NON VERBAL, NO SOB, NOT IN DISTRESS, ON MECHANICAL VENT WITH SETTINGS IN PLACED AND TOLERATED WELL. TELEMONITOR READS SINUS RHYTHM WITH HEART RATE AT 75. WITH G-TUBE DRAINING TO GRAVITY WITH CLOUDY FLUID INTO AEROSPACE ENGINEER OFFICER ARMAMENT DRAINAGE BAG. S/P J-TUBE REMOVAL ON 11/20/16 WITH DRESSING SOAKED WITH GREENISH DISCHARGE, DRESSING CHANGED. PICC LINE ON RIGHT UPPER ARM, PATENT AND INTACT WITH TPN #13 AT 70 ML/HR INFUSING WELL. KEPT PT CLEAN AND DRY. AT BEDSIDE. KEPT BED IN THE LOWEST POSITION LOCKED, SIDE RAILS X3 UP. WILL CONTINUE TO MONITOR PT.
[2016-11-26 20:00] VITALS: BP 128/69
--- NOTE | 2016-11-26 21:15 | NUR ---
RN NOTES VISITED BY DR CALVERT, SEEN AND EXAMINED PT. STILL NOTED WITH SIGNIFICANT OF BILIARY DISCHARGE ON THE THE JT SITE, FISTULA NOT CLOSING MAY NEED SURGICAL SOLUTION. WILL CONTINUE TPN.
--- NOTE | 2016-11-26 21:30 | NUR ---
RN NOTES SEEN BY DR DE JESUS, SPOKE TO DR CALVERT. NO NEW ORDERS MADE.
--- NOTE | 2016-11-26 23:41 | NUR ---
RN NOTES BLOOD SUGAR CHECKED 180 MG/DL, 3 UNITS REGULAR INSULIN GIVEN SUBCU. WILL CONTINUE TO MONITOR PT.
[2016-11-27 00:27] VITALS: BP 135/84
[2016-11-27] MEDS: ALBUTEROL FS 2.5 MG/3 ML VIAL.NEB IH SCH ×4 (01:08→20:05)
[2016-11-27] MEDS: IPRATROPIUM NEB FS 0.5 MG/2.5 ML AMPUL.NEB IH SCH ×4 (01:08→20:05)
[2016-11-27 04:00] VITALS: BP 129/78
[2016-11-27] MEDS ORDERED: IV SET PRIMARY PUMP SET 1 EA INFUS.SET MC ONE ×2 (04:38→16:23)
[2016-11-27] MEDS ORDERED: FILTER SET SAVER IV SET 1 EA INFUS.SET MC ONE (04:42)
--- NOTE | 2016-11-27 04:51 | NUR ---
RN NOTES TPN #14 STARTED WITH LATEST BLOOD SUGAR OF 181 MG/DL.
[2016-11-27] MEDS: ZOSYN IVPB 4.5 G in IV D5W 50ml IV SCH ×3 (05:48→19:11)
[2016-11-27] MEDS: BLOOD SUGAR DIAGNOSTIC 1 EACH STRIP IN SCH ×3 (05:48→17:40)
[2016-11-27] MEDS: INSULIN REGULAR, HUMAN 100 UNIT/ML 3 ML VIAL SQ PRN ×3 (05:50→17:56)
--- NOTE | 2016-11-27 05:50 | NUR ---
RN NOTES BLOOD SUGAR CHECKED 203 MG/DL, 4 UNITS INSULIN GIVEN SUBCU. WILL CONTINUE TO MONITOR.
--- NOTE | 2016-11-27 07:15 | NUR ---
RN NOTES PT ASLEEP, HOB ELEVATED, NO SOB, NOT IN DISTRESS, TOLERATING MECHANICAL VENT WELL. VITAL SIGNS STABLE, AFEBRILE. NO EPISODE OF NAUSEA AND VOMITING. TELEMONITOR READS SINUS RHYTHM AT 79. SKIN CARE AND WOUND CARE DONE. J-TUBE SITE STILL NOTED WITH GREENISH DISCHARGE, MODERATE IN AMOUNT. G-TUBE DRAIN WITH GREENISH DRAINAGE NOTED. TURN AND REPOSITION SCHEDULED. KEPT PT CLEAN AND DRY. ALL DUE MEDS GIVEN. ENDORSED TO MORNING RN FOR CONTINUITY OF CARE.
[2016-11-27 07:19] VITALS: BP 124/69
--- NOTE | 2016-11-27 07:20 | NUR ---
RESEARCH BIOSTATISTICIAN NOTES RECEIVED PATIENT IN BED, EYES OPEN. NON VERBAL, OBTUNDED. ON MECH VENT, NO SOB NOTED. NPO, PICC LINE IN ARMANI. TPN INFUSING AT 70ML/HR. APPEARS COMFORTABLE IN BED, NO FACIAL GRIMACING. ON CONTACT ISOLATION. WILL CONT TO MONITOR.
[2016-11-27 07:43] LABS: BASOPHILS % (AUTO) 0.6 % (0.0-2.0); EOSINOPHILS % (AUTO) 0.3 % (0.0-6.0); HEMATOCRIT 27 % (39-51); LYMPHOCYTES # (AUTO) 1.2 /CMM (0.8-4.8); LYMPHOCYTES % (AUTO) 27.2 % (20.0-44.0); MEAN CORPUSCULAR HEMOGLOBIN 30 PG (26.0-33.0); MEAN CORPUSCULAR HGB CONC 33 g/dl (31.0-36.0); MEAN CORPUSCULAR VOLUME 91 fL (80-96); MONOCYTES # (AUTO) 0.3 /CMM (0.1-1.30); MONOCYTES % (AUTO) 7.6 % (2.0-12.0); NEUTROPHILS # (AUTO) 2.9 /CMM (1.8-8.9); NEUTROPHILS % (AUTO) 64.3 % (43.0-81.0); PLATELET COUNT (AUTO) 125 /CMM (150-450); RED BLOOD CELL COUNT(AUTO) 2.99 MIL/uL (4.5-6.0); WHITE BLOOD COUNT (AUTO) 4.5 K/uL (4.3-11.0)
[2016-11-27 08:00] VITALS: BP 124/69
[2016-11-27 08:17] LABS: ALBUMIN 1.5 g/dL (3.4-5.0); BILIRUBIN,TOTAL 0.8 mg/dL (0.2-1.0); CALCIUM, SERUM 7.3 mg/dL (8.5-10.1); CREATININE 0.5 mg/dL (0.6-1.3); MAGNESIUM 1.6 mg/dL (1.8-2.4); PHOSPHORUS 2.1 mg/dL (2.5-4.9); POTASSIUM 3.2 mmol/L (3.5-5.1); TOTAL PROTEIN, SERUM 5.7 g/dL (6.4-8.2)
[2016-11-27] MEDS: PANTOPRAZOLE 40 MG VIAL IV SCH (09:43)
[2016-11-27] MEDS: CLOTRIMAZOLE 1% 15 GM TUBE TP SCH ×2 (09:48→17:40)
[2016-11-27] MEDS: GENTAMICIN 0.1% OINT 15 GM TUBE TP SCH ×2 (09:48→20:31)
[2016-11-27] MEDS: NYSTATIN TOP POWDER 15 GM BOTTLE TP SCH ×2 (09:49→17:40)
[2016-11-27] MEDS: KEPPRA 500 MG in IV NS 100 ML IV SCH ×2 (10:01→20:30)
[2016-11-27] MEDS: TOBRAMYCIN 80 MG/2 ML VIAL INH SCH ×2 (11:18→23:27)
[2016-11-27] MEDS ORDERED: SECONDARY IV SET 1 EA INFUS.SET MC ONE ×4 (12:44→15:46)
[2016-11-27] MEDS ORDERED: TPN BAG #16 IV PRN ×8 (13:00)
[2016-11-27] MEDS: Magnesium 1GM/D5W 100ML PREMIX 100 ML IV SCH ×2 (13:34→14:39)
[2016-11-27] MEDS ORDERED: SODIUM CHLORIDE IV PRN ×10 (13:35)
[2016-11-27] MEDS ORDERED: TPN ADDITIVES IV PRN ×10 (13:35)
[2016-11-27] MEDS ORDERED: [UNRECOGNIZED DRUG - OTHER] IV PRN ×10 (13:35)
[2016-11-27] MEDS ORDERED: POTASSIUM CHLORIDE IV PRN ×10 (13:35)
[2016-11-27] MEDS ORDERED: POTASSIUM PHOSPHATE MM 7.5 MMOL in IV D5W 100 ML IV SCH (14:00)
[2016-11-27] MEDS ORDERED: [UNRECOGNIZED DRUG - OTHER] IV PRN ×10 (15:00)
[2016-11-27] MEDS ORDERED: [UNRECOGNIZED DRUG - OTHER] IV PRN ×7 (15:00)
[2016-11-27 16:00] VITALS: BP 143/75
[2016-11-27] MEDS: FAT EMULSION 20% 500 ML in PREMIX 1 EA IV SCH (16:27)
--- NOTE | 2016-11-27 19:30 | NUR ---
OIL SPREADER OPERATOR NOTES PATIENT IN BED, EYES OPEN. NON VERBAL, OBTUNDED. SINUS RHYTHM HR 80 ON THE MONITOR. ON MECH VENT, SETTING REMAINS THE SAME, TOLERATING WELL. SUCTION PRN. NO SOB NOTED. TPN INFUSING AT 70ML/HR AND LIPID INFUSING WELL. BLOOD SUGAR MONITORED. APPEARS COMFORTABLE IN BED, NO FACIAL GRIMACING. SCD IN PLACE. ON CONTACT ISOLATION. TURN AND REPOSITION. ENDORSED TO WHEEL OF FORTUNE DEALER RN FOR BLANCA.
--- NOTE | 2016-11-27 19:31 | NUR ---
RN NOTES RECEIVED PT EYES OPEN,, HOB ELEVATED, NON VERBAL, OBTUNDED, NO SOB, NOT IN DISTRESS, ON MECHANICAL VENT WITH SETTINGS IN PLACED AND TOLERATED WELL. TELEMONITOR READS SINUS RHYTHM WITH HEART RATE AT 83. WITH G-TUBE DRAINING TO GRAVITY WITH CLOUDY FLUID, GREENISH INTO ATTACHED DRAINAGE BAG. S/P J-TUBE SITE/STOMA WITH DRESSING SOAKED WITH GREENISH DISCHARGE, DRESSING CHANGED. PICC LINE ON RIGHT UPPER ARM WITH 3 PORT , PATENT AND INTACT WITH TPN #15 AT 70 ML/HR INFUSING WELL AND LIPID AT 20ML/HR. KEPT PT CLEAN AND DRY. AT BEDSIDE. KEPT BED IN THE LOWEST POSITION LOCKED, SIDE RAILS X3 UP. WILL CONTINUE TO MONITOR PT.
[2016-11-27 20:00] VITALS: BP_SYST 123; BP_SYST 126; BP_DIAS 68; BP_DIAS 70
--- NOTE | 2016-11-27 20:05 | NUR ---
RT Found trached patient with settings of AC14 550 40% +0. Saturation 100% HR:87. Secretions are small, thin, white. Alarms are set and audible. Ambu bag is at bedside. Addendum: 11/27/16 at 2208 by CALLY HESTER RT Amended: Links added.
--- NOTE | 2016-11-27 20:09 | NUR ---
RN NOTES TPN #14 CONSUMED AND FOLLOWED BY TPN #15 WITH BLOOD SUGAR OF 213, INFUSING WELL AT 70.33 ML/HR.
--- NOTE | 2016-11-27 23:45 | NUR ---
RN NOTES SEEN BY Arlyn CHAPPELL TUBE SITE SEEN STILL WITH MODERATE AMOUNT OF GREENISH DISCHARGE. NEW ORDER RECEIVED, SODIUM PHOSPHATE 20mMol AND 2GM MAGNESIUM SULFATE TO BE ADDED IN THE TPN. RN PIPE PROCESSOR MADE AWARE OF THE ORDER TO INFORM THE PHARMACY DIESEL ENGINE MECHANIC APPRENTICE. AWAITING FOR RETURN CALL.
[2016-11-28] VITALS (7 sets, daily range): BP systolic 121–131; BP diastolic 63–73
--- NOTE | 2016-11-28 00:15 | NUR ---
RN NOTES SPOKE TO ANDREW, POULTRY FIELD SERVICE TECHNICIAN PHARMACIST. MADE HIM AWARE OF THE ORDER. HE WILL CALL DR DE JESUS FOR CLARIFICATION OF ORDER. AWAITING FOR RETURN CALL.
[2016-11-28] MEDS ORDERED: Magnesium 1GM/D5W 100ML PREMIX 100 ML IV ONE (00:35)
--- NOTE | 2016-11-28 00:37 | NUR ---
RN NOTES CHARGE NURSE SPOKE TO PHARMACIST, PER DR DE JESUS GIVE MAGNESIUM SULFATE 1 GM NOW AND WILL CHECK MG AND PHOSPHORUS LEVEL AT 5AM. NOTED AND CARRIED OUT.
[2016-11-28] MEDS ORDERED: SECONDARY IV SET 1 EA INFUS.SET MC ONE (00:42)
[2016-11-28] MEDS: BLOOD SUGAR DIAGNOSTIC 1 EACH STRIP IN SCH ×5 (00:51→23:41)
[2016-11-28] MEDS: INSULIN REGULAR, HUMAN 100 UNIT/ML 3 ML VIAL SQ PRN ×5 (00:54→23:38)
[2016-11-28] MEDS ORDERED: Magnesium 1GM/D5W 100ML PREMIX PIGGYBACK IV ONE (01:00)
[2016-11-28] MEDS: ALBUTEROL FS 2.5 MG/3 ML VIAL.NEB IH SCH ×4 (01:38→20:03)
[2016-11-28] MEDS: IPRATROPIUM NEB FS 0.5 MG/2.5 ML AMPUL.NEB IH SCH ×4 (01:38→20:03)
--- NOTE | 2016-11-28 05:55 | NUR ---
RT Patient continues on settings of AC14 550 40% +0. Patient is calm. Ambu bag is at bedside. Alarms are set and audible. Addendum: 11/28/16 at 0608 by CALLY HESTER RT Amended: Links added.
[2016-11-28 06:57] LABS: CALCIUM, SERUM 7.5 mg/dL (8.5-10.1); CREATININE 0.5 mg/dL (0.6-1.3); MAGNESIUM 2.2 mg/dL (1.8-2.4); PHOSPHORUS 2.2 mg/dL (2.5-4.9); POTASSIUM 3.5 mmol/L (3.5-5.1)
[2016-11-28 07:13] LABS: BASOPHILS % (AUTO) 0.6 % (0.0-2.0); EOSINOPHILS % (AUTO) 0.6 % (0.0-6.0); HEMATOCRIT 27 % (39-51); LYMPHOCYTES # (AUTO) 1.2 /CMM (0.8-4.8); LYMPHOCYTES % (AUTO) 25.4 % (20.0-44.0); MEAN CORPUSCULAR HEMOGLOBIN 30 PG (26.0-33.0); MEAN CORPUSCULAR HGB CONC 33 g/dl (31.0-36.0); MEAN CORPUSCULAR VOLUME 91 fL (80-96); MONOCYTES # (AUTO) 0.4 /CMM (0.1-1.30); MONOCYTES % (AUTO) 7.8 % (2.0-12.0); NEUTROPHILS # (AUTO) 3.1 /CMM (1.8-8.9); NEUTROPHILS % (AUTO) 65.6 % (43.0-81.0); PLATELET COUNT (AUTO) 155 /CMM (150-450); RDW COEFFICIENT OF VARIATION 17.4 (11.5-15.0); RED BLOOD CELL COUNT(AUTO) 2.97 MIL/uL (4.5-6.0); WHITE BLOOD COUNT (AUTO) 4.7 K/uL (4.3-11.0)
--- NOTE | 2016-11-28 07:34 | NUR ---
RN NOTES PT ASLEEP, HOB ELEVATED, NO SOB, NOT IN DISTRESS, TOLERATING MECHANICAL VENT WELL. VITAL SIGNS STABLE, AFEBRILE. NO EPISODE OF NAUSEA AND VOMITING. TELEMONITOR READS SINUS RHYTHM AT 81. SKIN CARE AND WOUND CARE DONE. J-TUBE SITE STILL NOTED WITH GREENISH DISCHARGE, MODERATE IN AMOUNT. G-TUBE DRAIN WITH GREENISH DRAINAGE NOTED. SUCTION SECRETIONS NEEDED. ANDREW, PHARMACIST MADE AWARE OF THE LAB RESULT. TURN AND REPOSITION SCHEDULED. KEPT PT CLEAN AND DRY. ALL DUE MEDS GIVEN. ENDORSED TO MORNING RN FOR CONTINUITY OF CARE.
[2016-11-28] MEDS ORDERED: D5W IV ONE (08:00)
[2016-11-28] MEDS ORDERED: SODIUM PHOSPHATE IV ONE (08:00)
--- NOTE | 2016-11-28 08:00 | NUR ---
MS RN Note Received Pt. Pt is awake, no SOB or pain noted. VSS. Green JT drainage noted, will measure drainage amount. Will continue to reposition patient for comfort throughout shift. Wound care and dressing changes performed. Will continue to monitor.
[2016-11-28] MEDS: NYSTATIN TOP POWDER 15 GM BOTTLE TP SCH ×2 (09:02→17:25)
[2016-11-28] MEDS: GENTAMICIN 0.1% OINT 15 GM TUBE TP SCH ×2 (09:03→21:19)
[2016-11-28] MEDS: CLOTRIMAZOLE 1% 15 GM TUBE TP SCH ×2 (09:03→17:24)
[2016-11-28] MEDS: PANTOPRAZOLE 40 MG VIAL IV SCH (09:06)
[2016-11-28] MEDS: TOBRAMYCIN 80 MG/2 ML VIAL INH SCH ×2 (11:10→22:49)
[2016-11-28] MEDS ORDERED: IV SET PRIMARY PUMP SET 1 EA INFUS.SET MC ONE (11:46)
[2016-11-28] MEDS ORDERED: FILTER SET SAVER IV SET 1 EA INFUS.SET MC ONE (11:46)
[2016-11-28] MEDS ORDERED: [UNRECOGNIZED DRUG - OTHER] IV PRN ×9 (13:30)
[2016-11-28] MEDS ORDERED: [UNRECOGNIZED DRUG - OTHER] IV PRN ×7 (13:30)
[2016-11-28] MEDS ORDERED: TPN BAG #17 IV PRN ×9 (13:30)
[2016-11-28] MEDS: KEPPRA 500 MG in IV NS 100 ML IV SCH ×2 (13:37→21:18)
[2016-11-28] MEDS ORDERED: IV NS 0.9% 250 ML IV ONE (15:27)
--- NOTE | 2016-11-28 18:51 | NUR ---
PT RESTING IN BED NO S/S OF PAIN OR DISTRESS.WITH ONGOING TPN AND LIPIDS IV INFUSING WELL.TURNED EVERY TWO HRS.PT'S AT BEDSIDE.
--- NOTE | 2016-11-28 19:30 | NUR ---
POLYTECHNIC REGISTRAR NOTES RECEIVED PT IN BED WITH VENT SETTINGS ORDERED. NO ACUTE RESP. DISTRESS NOTED. EYES OPEN, OBTUNDED. ARMANI PICC LINE NOTED WITH TPM INFUSING. GT DRAINAGE NOTED WILL MONITOR OUTPUT. APPEARS COMFORTABLE. SAFETY MEASURES MAINTAINED. WILL CONT TO MONITOR.
--- NOTE | 2016-11-28 20:03 | NUR ---
RT Found trached patient on settings of AC14 550 40% +0. Saturation 100% HR: 85bpm. Moderate thick and yellow secretions. Ventilator alarms are set and audible, ambu bag is at bedside. Addendum: 11/28/16 at 2114 by CALLY HESTER RT Amended: Links added.
--- NOTE | 2016-11-28 20:25 | NUR ---
Patient was transferred from room 318 to 319. Patient remained stable. Sat:100 % HR:80 . Addendum: 11/28/16 at 2115 by CALLY HESTER RT Amended: Links added.
[2016-11-29] VITALS: BP 130/70
[2016-11-29 00:27] VITALS: BP 130/70
[2016-11-29] MEDS: IPRATROPIUM NEB FS 0.5 MG/2.5 ML AMPUL.NEB IH SCH ×4 (01:00→19:31)
[2016-11-29] MEDS: ALBUTEROL FS 2.5 MG/3 ML VIAL.NEB IH SCH ×4 (01:00→19:31)
[2016-11-29] MEDS ORDERED: FILTER SET SAVER IV SET 1 EA INFUS.SET MC ONE (03:46)
[2016-11-29] MEDS ORDERED: IV SET PRIMARY PUMP SET 1 EA INFUS.SET MC ONE ×3 (03:46→19:19)
[2016-11-29 04:00] VITALS: BP 144/85
--- NOTE | 2016-11-29 05:04 | NUR ---
RT Patient continues on ventilator settings AC14 550 40% +0 . Sat:100% HR:86 . Ventilator alarms are set and audible. Ambu bag is at bedside. Addendum: 11/29/16 at 0518 by CALLY HESTER RT Amended: Links added.
[2016-11-29] MEDS: BLOOD SUGAR DIAGNOSTIC 1 EACH STRIP IN SCH ×4 (06:06→23:57)
[2016-11-29] MEDS: INSULIN REGULAR, HUMAN 100 UNIT/ML 3 ML VIAL SQ PRN ×3 (06:09→18:28)
[2016-11-29 07:04] VITALS: BP 129/77
[2016-11-29 07:37] LABS: BASOPHILS % (AUTO) 0.7 % (0.0-2.0); EOSINOPHILS # (AUTO) 0.1 /CMM (0.0-0.7); EOSINOPHILS % (AUTO) 1.1 % (0.0-6.0); HEMATOCRIT 28 % (39-51); HEMOGLOBIN 9.7 g/dL (13.5-17.5); LYMPHOCYTES # (AUTO) 1.3 /CMM (0.8-4.8); LYMPHOCYTES % (AUTO) 25.7 % (20.0-44.0); MEAN CORPUSCULAR HEMOGLOBIN 31 PG (26.0-33.0); MEAN CORPUSCULAR HGB CONC 34 g/dl (31.0-36.0); MEAN CORPUSCULAR VOLUME 91 fL (80-96); MONOCYTES # (AUTO) 0.5 /CMM (0.1-1.30); MONOCYTES % (AUTO) 9.1 % (2.0-12.0); NEUTROPHILS # (AUTO) 3.2 /CMM (1.8-8.9); NEUTROPHILS % (AUTO) 63.4 % (43.0-81.0); PLATELET COUNT (AUTO) 175 /CMM (150-450); RED BLOOD CELL COUNT(AUTO) 3.12 MIL/uL (4.5-6.0)
--- NOTE | 2016-11-29 07:47 | NUR ---
CLINICAL RESEARCH NURSE NOTES ENDORSED PT TO THE NEXT SHIFT WITH NO CHANGE OF CONDITION.
[2016-11-29 07:53] LABS: CALCIUM, SERUM 8.2 mg/dL (8.5-10.1); CREATININE 0.4 mg/dL (0.6-1.3); MAGNESIUM 1.8 mg/dL (1.8-2.4); PHOSPHORUS 2.6 mg/dL (2.5-4.9); POTASSIUM 3.9 mmol/L (3.5-5.1)
--- NOTE | 2016-11-29 08:00 | NUR ---
MS RN RECEIVED ON BED, OPENS EYES, VENT DEPENDENT PATIENT ,NOTED TO HAVE G TUBE AND J TUBE WELL, NO IN USE, PATIENT ON TPN AT THIS TIME, COLOSTOMY INTACT,REPOSITION FOR COMFORT,ALL NEEDS ATTENDED.
[2016-11-29] MEDS: PANTOPRAZOLE 40 MG VIAL IV SCH (08:55)
[2016-11-29] MEDS: KEPPRA 500 MG in IV NS 100 ML IV SCH ×2 (08:56→21:36)
[2016-11-29] MEDS: NYSTATIN TOP POWDER 15 GM BOTTLE TP SCH ×2 (08:56→17:46)
[2016-11-29] MEDS: CLOTRIMAZOLE 1% 15 GM TUBE TP SCH ×2 (08:58→17:45)
--- NOTE | 2016-11-29 09:00 | NUR ---
MS RN DUE MEDS GIVEN,LABEL FOLDER AT BEDSIDE.
[2016-11-29] MEDS: GENTAMICIN 0.1% OINT 15 GM TUBE TP SCH ×2 (09:10→21:40)
[2016-11-29] MEDS: TOBRAMYCIN 80 MG/2 ML VIAL INH SCH ×2 (11:27→23:18)
[2016-11-29] MEDS ORDERED: TPN BAG #19 IV PRN ×9 (15:30)
[2016-11-29 15:54] VITALS: BP 127/69
[2016-11-29] MEDS ORDERED: FILTER [FOR TRIPLE MIX] SET 1 EA INFUS.SET MC ONE (19:19)
[2016-11-29] MEDS: FAT EMULSION 20% 500 ML in PREMIX 1 EA IV SCH (19:23)
--- NOTE | 2016-11-29 19:30 | NUR ---
RN NOTES RECEIVED PT ASLEEP, HOB ELEVATED, NON VERBAL, NO SOB, NOT IN DISTRESS, ON MECHANICAL VENT WITH SETTINGS IN PLACED AND TOLERATED WELL. TELEMONITOR READS SINUS RHYTHM WITH HEART RATE AT 85. WITH G-TUBE DRAINING TO GRAVITY WITH CLOUDY GREENISH FLUID INTO ATTACHED DRAINAGE BAG. S/P J-TUBE REMOVAL ON 11/20/16, SITE/STOMA WITH OSTOMY BAG WITH BILOUS SECRETIONS NOTES. PICC LINE ON RIGHT UPPER ARM, PATENT AND INTACT WITH TPN #18 AT 69 ML/HR INFUSING WELL. KEPT PT CLEAN AND DRY. AT BEDSIDE. KEPT BED IN THE LOWEST POSITION LOCKED, SIDE RAILS X3 UP. WILL CONTINUE TO MONITOR PT.
[2016-11-29 20:00] VITALS: BP 149/95
--- NOTE | 2016-11-29 23:57 | NUR ---
RN NOTES BLOOD SUGAR CHECKED, 256 MG/DL 6 UNITS INSULIN GIVEN PER SLIDING SCALE.WILL CONTINUE TO MONITOR PT.
[2016-11-30] VITALS (7 sets, daily range): BP systolic 128–150; BP diastolic 71–78
[2016-11-30] MEDS: INSULIN REGULAR, HUMAN 100 UNIT/ML 3 ML VIAL SQ PRN ×4 (00:02→17:10)
[2016-11-30] MEDS: ALBUTEROL FS 2.5 MG/3 ML VIAL.NEB IH SCH ×4 (01:05→20:11)
[2016-11-30] MEDS: IPRATROPIUM NEB FS 0.5 MG/2.5 ML AMPUL.NEB IH SCH ×4 (01:05→20:11)
[2016-11-30] MEDS: BLOOD SUGAR DIAGNOSTIC 1 EACH STRIP IN SCH ×4 (06:21→23:49)
--- NOTE | 2016-11-30 06:23 | NUR ---
RN NOTES BLOOD SUGAR CHECKED 283 MG/DL, 6 UNITS OF INSULIN GIVEN PER SLIDING SCALE.
--- NOTE | 2016-11-30 07:07 | NUR ---
RN NOTES PT ASLEEP, HOB ELEVATED, NO SOB, NOT IN DISTRESS, TOLERATING MECHANICAL VENT WELL. VITAL SIGNS STABLE, AFEBRILE. NO EPISODE OF NAUSEA AND VOMITING. TELEMONITOR READS SINUS RHYTHM AT 77. SKIN CARE AND WOUND CARE DONE. J-TUBE SITE STILL WITH GREENISH SECRETIONS INTO OSTOMY BAG. G-TUBE DRAIN WITH GREENISH DRAINAGE. TURN AND REPOSITION SCHEDULED. KEPT PT CLEAN AND DRY. ALL DUE MEDS GIVEN. ENDORSED TO MORNING RN FOR CONTINUITY OF CARE.
[2016-11-30 07:10] LABS: BASOPHILS # (AUTO) 0.1 /CMM (0.0-0.2); BASOPHILS % (AUTO) 1.1 % (0.0-2.0); EOSINOPHILS # (AUTO) 0.1 /CMM (0.0-0.7); HEMATOCRIT 27 % (39-51); HEMOGLOBIN 9.2 g/dL (13.5-17.5); LYMPHOCYTES # (AUTO) 1.4 /CMM (0.8-4.8); LYMPHOCYTES % (AUTO) 27.8 % (20.0-44.0); MEAN CORPUSCULAR HEMOGLOBIN 31 PG (26.0-33.0); MEAN CORPUSCULAR HGB CONC 34 g/dl (31.0-36.0); MEAN CORPUSCULAR VOLUME 91 fL (80-96); MONOCYTES # (AUTO) 0.5 /CMM (0.1-1.30); NEUTROPHILS # (AUTO) 3.2 /CMM (1.8-8.9); NEUTROPHILS % (AUTO) 61.1 % (43.0-81.0); PLATELET COUNT (AUTO) 198 /CMM (150-450); RDW COEFFICIENT OF VARIATION 18.1 (11.5-15.0); RED BLOOD CELL COUNT(AUTO) 3.01 MIL/uL (4.5-6.0); WHITE BLOOD COUNT (AUTO) 5.2 K/uL (4.3-11.0)
--- NOTE | 2016-11-30 07:10 | NUR ---
DEXTRINE MIXER NOTES RECEIVED PATIENT IN BED, EYES OPEN. NON VERBAL, OBTUNDED. ON TELEMONITOR SINUS RHYTHM HR 75, ON MECH VENT. NO SOB. TPN INFUSING WELL. GTUBE DRAINING TO GRAVITY WITH GREENISH FLUID DRAINAGE. JTUBE STOMA WITH OSTOMY BAG IN PLACE. APPEARS COMFORTABLE IN BED, WILL CONT TO MONITOR.
[2016-11-30 07:57] LABS: CREATININE 0.4 mg/dL (0.6-1.3); PHOSPHORUS 2.6 mg/dL (2.5-4.9); POTASSIUM 4.4 mmol/L (3.5-5.1)
[2016-11-30] MEDS: KEPPRA 500 MG in IV NS 100 ML IV SCH ×2 (09:18→21:08)
[2016-11-30] MEDS: PANTOPRAZOLE 40 MG VIAL IV SCH (09:19)
[2016-11-30] MEDS: NYSTATIN TOP POWDER 15 GM BOTTLE TP SCH ×2 (09:27→17:11)
[2016-11-30] MEDS: CLOTRIMAZOLE 1% 15 GM TUBE TP SCH ×2 (09:28→17:11)
[2016-11-30] MEDS: GENTAMICIN 0.1% OINT 15 GM TUBE TP SCH ×2 (09:28→21:09)
[2016-11-30] MEDS ORDERED: FILTER [FOR TRIPLE MIX] SET 1 EA INFUS.SET MC ONE (10:25)
[2016-11-30] MEDS: TOBRAMYCIN 80 MG/2 ML VIAL INH SCH ×2 (11:28→23:22)
[2016-11-30 11:37] LABS: ALBUMIN 1.7 g/dL (3.4-5.0); BILIRUBIN,DIRECT 0.2 mg/dL (0.0-0.2); BILIRUBIN,TOTAL 0.6 mg/dL (0.2-1.0); TOTAL PROTEIN, SERUM 6.2 g/dL (6.4-8.2)
[2016-11-30] MEDS ORDERED: IV NS 0.9% 250 ML IV ONE (11:40)
[2016-11-30] MEDS ORDERED: TPN BAG #20 IV PRN ×7 (12:30)
[2016-11-30] MEDS ORDERED: TPN BAG #21 IV PRN ×9 (12:30)
[2016-11-30] MEDS ORDERED: SECONDARY IV SET 1 EA INFUS.SET MC ONE (12:48)
[2016-11-30] MEDS: ALBUMIN 25% 25 GM in PREMIX 1 EA IV SCH ×3 (12:51→23:50)
--- NOTE | 2016-11-30 16:43 | NUR ---
ERROR WRITING V/S IN THE FLOW SHEET. CORRECTED. 1200 BP 128/78 P82 R14 T98.8 AND AT 1600 BP 137/76 P89 R14 T98.2
--- NOTE | 2016-11-30 18:48 | NUR ---
WORKFORCE DEVELOPMENT VICE PRESIDENT CLOSING NOTES PATIENT IN BED, NOT IN DISTRESS. ON [facility] VENT WITH THE SAME SETTINGS, TOLERATING WELL. SUCTION PRN. TPN BAG# 19 INFUSING AT 70ML/HR, NO S/S OF INFILTRATION IN THE ARMANI PICC LINE. BLOOD SUGAR MONITORED. TURN AND REPOSITION. WOUND CARE RENDERED. PATIENT IS SEEN BY DR. CALVERT TODAY, PER MD POSSIBLE SURGICAL CLOSURE FISTULA AND WILL DISCUSS WITH PATIENT'S PRIMARY MD. FAMILY IS AWARE. WILL ENDORSE TO AUTHORIZATION REP RN FOR CONTINUITY OF CARE.
--- NOTE | 2016-11-30 19:30 | NUR ---
RN NOTES RECEIVED PATIENT IN BED; RESPONSIVE; OBTUNDED. NO SIGNS OF ACUTE DISTRESS OR PAIN NOTED. IV SITE PATENT, INTACT. J SITE WITH POUCH INTACT; GT SITE WITH TUBING AND DRAINAGE BAG INTACT; TRACH INTACT; VENT SETTINGS ORDERED. ON LOW BED WITH BILATERAL SIDE RAILS UP. CONTACT ISOLATION MAINTAINED. WILL CONTINUE TO MONITOR.
[2016-12-01] MEDS: INSULIN REGULAR, HUMAN 100 UNIT/ML 3 ML VIAL SQ PRN ×4 (00:15→17:55)
[2016-12-01] MEDS ORDERED: IV SET PRIMARY PUMP SET 1 EA INFUS.SET MC ONE ×2 (00:17→16:44)
[2016-12-01] MEDS ORDERED: SECONDARY IV SET 1 EA INFUS.SET MC ONE ×2 (00:17→16:36)
[2016-12-01] MEDS ORDERED: IV NS 0.9% 250 ML IV ONE (00:17)
[2016-12-01 00:59] VITALS: BP 154/111
[2016-12-01] MEDS: ALBUTEROL FS 2.5 MG/3 ML VIAL.NEB IH SCH ×4 (01:47→19:24)
[2016-12-01] MEDS: IPRATROPIUM NEB FS 0.5 MG/2.5 ML AMPUL.NEB IH SCH ×4 (01:47→19:24)
[2016-12-01] MEDS ORDERED: FILTER SET SAVER IV SET 1 EA INFUS.SET MC ONE ×2 (03:17→16:43)
[2016-12-01 04:31] VITALS: BP 166/81
[2016-12-01] MEDS: ALBUMIN 25% 25 GM in PREMIX 1 EA IV SCH (06:06)
[2016-12-01] MEDS: BLOOD SUGAR DIAGNOSTIC 1 EACH STRIP IN SCH ×4 (06:08→23:57)
[2016-12-01 06:43] LABS: BASOPHILS % (AUTO) 0.6 % (0.0-2.0); EOSINOPHILS % (AUTO) 0.2 % (0.0-6.0); HEMATOCRIT 26 % (39-51); HEMOGLOBIN 8.8 g/dL (13.5-17.5); LYMPHOCYTES # (AUTO) 1.1 /CMM (0.8-4.8); LYMPHOCYTES % (AUTO) 19.1 % (20.0-44.0); MEAN CORPUSCULAR HEMOGLOBIN 31 PG (26.0-33.0); MEAN CORPUSCULAR HGB CONC 34 g/dl (31.0-36.0); MEAN CORPUSCULAR VOLUME 92 fL (80-96); MONOCYTES # (AUTO) 0.4 /CMM (0.1-1.30); MONOCYTES % (AUTO) 7.2 % (2.0-12.0); NEUTROPHILS # (AUTO) 4.3 /CMM (1.8-8.9); NEUTROPHILS % (AUTO) 72.9 % (43.0-81.0); PLATELET COUNT (AUTO) 195 /CMM (150-450); RDW COEFFICIENT OF VARIATION 17.4 (11.5-15.0); RED BLOOD CELL COUNT(AUTO) 2.85 MIL/uL (4.5-6.0); WHITE BLOOD COUNT (AUTO) 5.9 K/uL (4.3-11.0)
--- NOTE | 2016-12-01 06:43 | NUR ---
RT PT RECEIVED ON [facility] VENT WITH NOTED SETTING. VENT PLUGGED IN TO RED OUTLET. ALARM SET AND AUDIBLE. . SX SMALL AMOUNT OF THIN GREEN SECRETIONS. NO SOB OR RESP DISTRESS NOTED ON SHIFT. CONTINUE CURRENT CARE PLAN AND MONITOR FOR ANY CHANGES. Addendum: 12/01/16 at 0644 by BRUCE TERRELL RT Amended: Links added.
[2016-12-01 06:56] VITALS: BP 134/81
--- NOTE | 2016-12-01 07:00 | NUR ---
RN NOTES PATIENT IN BED WITH EYES CLOSED; RESPONSIVE. RESPIRATIONS EVEN. NO SIGNS OF PAIN NOTED. DUE MEDS GIVEN WITH NO ASE NOTED. SAFETY PRECAUTIONS AND COMFORT MEASURES IN PLACE. WILL GIVE REPORT TO DAY SHIFT FOR CONTINUITY OF CARE.
[2016-12-01 07:04] LABS: CALCIUM, SERUM 8.9 mg/dL (8.5-10.1); CREATININE 0.5 mg/dL (0.6-1.3); MAGNESIUM 1.8 mg/dL (1.8-2.4); POTASSIUM 4.3 mmol/L (3.5-5.1)
[2016-12-01 07:23] LABS: PHOSPHORUS 3.2 mg/dL (2.5-4.9)
--- NOTE | 2016-12-01 08:00 | NUR ---
MS RN RECEIVED ON BED, OPENS EYES, PATIENT IS NONVERBAL,VENT DEPENDENT PATIENT, NOT IN ANY FORM OF DISTRESS, RESPIRATIONS EVEN AND UNLABORED,NO SOB NOTED.WILL MONITOR PATIENT.
[2016-12-01] MEDS: PANTOPRAZOLE 40 MG VIAL IV SCH (08:32)
[2016-12-01] MEDS: CLOTRIMAZOLE 1% 15 GM TUBE TP SCH ×2 (08:33→17:56)
[2016-12-01] MEDS: NYSTATIN TOP POWDER 15 GM BOTTLE TP SCH ×2 (08:34→17:56)
[2016-12-01] MEDS: GENTAMICIN 0.1% OINT 15 GM TUBE TP SCH ×2 (08:36→21:53)
--- NOTE | 2016-12-01 09:30 | NUR ---
MS MAY DUE MEDS GIVEN,VIA IV,TOLERATED WELL W/O ADVERSE REACTION.PATIENT IS ON TPN AT THIS TIME W/ BOTH JTUBE AND GTUBE IN TACT,ALL NEEDS ATTENDED.
[2016-12-01] MEDS: KEPPRA 500 MG in IV NS 100 ML IV SCH ×2 (10:40→21:53)
--- NOTE | 2016-12-01 11:00 | NUR ---
MS RN WAS SEEN BY DR. CECILIO Thomas/ ORDERS MADE AND CARRIED OUT.
[2016-12-01] MEDS ORDERED: TPN BAG #21 IV PRN ×9 (12:35)
[2016-12-01] MEDS ORDERED: TPN BAG #22 IV PRN ×7 (13:00)
[2016-12-01 16:00] VITALS: BP 119/71
[2016-12-01] MEDS: FAT EMULSION 20% 500 ML in PREMIX 1 EA IV SCH (17:52)
--- NOTE | 2016-12-01 18:00 | NUR ---
MS OLVERA BLOOD SUGAR - 199 - 3 UNITS OF REGULAR [id number] GIVEN SQ, TPN STARTED CHANGED AND LIPIDS STARTED AT THIS TIME.
--- NOTE | 2016-12-01 18:49 | NUR ---
MS RN ON BED, NO DISTRESS NOTED, AT BEDSIDE.WILL ENDORSE TO SUPERVISOR MOLD YARD NURSE FOR CONTINUITY OF CARE.
--- NOTE | 2016-12-01 19:30 | NUR ---
RN NOTES RECEIVED PATIENT IN BED; RESPONSIVE; OBTUNDED. NO SIGNS OF ACUTE DISTRESS OR PAIN NOTED. TELE READING SINUS RHYTHM HR 97. IV SITE PATENT, INTACT. J SITE WITH POUCH INTACT; GT SITE WITH TUBING AND DRAINAGE BAG INTACT; TRACH INTACT; VENT SETTINGS ORDERED. PRESSURE SITES OFFLOADED. ON LOW BED WITH BILATERAL SIDE RAILS UP. CONTACT ISOLATION MAINTAINED. WILL CONTINUE TO MONITOR. AT BEDSIDE.
[2016-12-01 20:00] VITALS: BP 134/71
[2016-12-02] VITALS: BP 153/75
[2016-12-02] MEDS: INSULIN REGULAR, HUMAN 100 UNIT/ML 3 ML VIAL SQ PRN ×5 (00:03→23:42)
[2016-12-02] MEDS: ALBUTEROL FS 2.5 MG/3 ML VIAL.NEB IH SCH ×4 (01:30→19:41)
[2016-12-02] MEDS: IPRATROPIUM NEB FS 0.5 MG/2.5 ML AMPUL.NEB IH SCH ×4 (01:30→19:41)
[2016-12-02 04:00] VITALS: BP 126/74
[2016-12-02] MEDS: BLOOD SUGAR DIAGNOSTIC 1 EACH STRIP IN SCH ×4 (05:16→23:40)
--- NOTE | 2016-12-02 06:06 | NUR ---
RN NOTES PATIENT IN BED WITH EYES CLOSED; RESPONSIVE. RESPIRATIONS EVEN. NO SIGNS OF PAIN NOTED. DUE MEDS GIVEN WITH NO ASE NOTED. REPOSITIONED Q 2 HOURS. SUCTIONED PRN. SAFETY PRECAUTIONS AND COMFORT MEASURES IN PLACE. CONTACT ISOLATION MAINTAINED. WILL GIVE REPORT TO DAY SHIFT FOR CONTINUITY OF CARE.
[2016-12-02 06:48] LABS: BASOPHILS # (AUTO) 0.1 /CMM (0.0-0.2); EOSINOPHILS % (AUTO) 0.2 % (0.0-6.0); HEMATOCRIT 29 % (39-51); HEMOGLOBIN 9.8 g/dL (13.5-17.5); LYMPHOCYTES # (AUTO) 1.5 /CMM (0.8-4.8); LYMPHOCYTES % (AUTO) 20.4 % (20.0-44.0); MEAN CORPUSCULAR HEMOGLOBIN 31 PG (26.0-33.0); MEAN CORPUSCULAR HGB CONC 34 g/dl (31.0-36.0); MEAN CORPUSCULAR VOLUME 91 fL (80-96); MONOCYTES # (AUTO) 0.6 /CMM (0.1-1.30); MONOCYTES % (AUTO) 7.9 % (2.0-12.0); NEUTROPHILS # (AUTO) 5.3 /CMM (1.8-8.9); NEUTROPHILS % (AUTO) 70.5 % (43.0-81.0); PLATELET COUNT (AUTO) 240 /CMM (150-450); RDW COEFFICIENT OF VARIATION 17.2 (11.5-15.0); RED BLOOD CELL COUNT(AUTO) 3.18 MIL/uL (4.5-6.0); WHITE BLOOD COUNT (AUTO) 7.5 K/uL (4.3-11.0)
[2016-12-02 07:00] LABS: ALBUMIN 3.4 g/dL (3.4-5.0); CALCIUM, SERUM 8.9 mg/dL (8.5-10.1); CREATININE 0.5 mg/dL (0.6-1.3); POTASSIUM 4.4 mmol/L (3.5-5.1); TOTAL PROTEIN, SERUM 7.6 g/dL (6.4-8.2)
[2016-12-02] MEDS ORDERED: FILTER SET SAVER IV SET 1 EA INFUS.SET MC ONE ×2 (07:09→20:31)
--- NOTE | 2016-12-02 07:57 | NUR ---
RN NOTES RECEIVED PATIENT IN BED; OBTUNDED. NO SIGNS OF DISTRESS OR PAIN NOTED. ON TELE MONITOR SINUS RHYTHM HR 89. IV SITE PATENT, INTACT. ON VENT, PRESSURE SITES OFFLOADED. ON LOW BED WITH BILATERAL SIDE RAILS UP. CONTACT ISOLATION. WILL CONTINUE TO MONITOR.
[2016-12-02 08:00] VITALS: BP 147/76
[2016-12-02] MEDS: GENTAMICIN 0.1% OINT 15 GM TUBE TP SCH ×2 (09:03→21:40)
[2016-12-02] MEDS: CLOTRIMAZOLE 1% 15 GM TUBE TP SCH ×2 (09:03→17:15)
[2016-12-02] MEDS: KEPPRA 500 MG in IV NS 100 ML IV SCH ×2 (09:07→21:40)
[2016-12-02] MEDS ORDERED: IV SET PRIMARY PUMP SET 1 EA INFUS.SET MC ONE (09:07)
[2016-12-02] MEDS: PANTOPRAZOLE 40 MG VIAL IV SCH (09:07)
[2016-12-02] MEDS: NYSTATIN TOP POWDER 15 GM BOTTLE TP SCH ×2 (09:07→17:15)
[2016-12-02] MEDS ORDERED: FILTER [FOR TRIPLE MIX] SET 1 EA INFUS.SET MC ONE (09:10)
--- NOTE | 2016-12-02 09:53 | NUR ---
Patient received trached on mechanical vent. Breath sounds equal bilateral. Breathing treatment given as ordered and tolerated well. No adverse reactions noted. Vent plugged into red outlet and alarms set and functioning. Ambu bag at the bed side.
[2016-12-02 12:00] VITALS: BP 129/79
[2016-12-02] MEDS ORDERED: TPN BAG #23 IV PRN ×9 (13:00)
[2016-12-02] MEDS ORDERED: TPN BAG #24 IV PRN ×7 (13:30)
--- NOTE | 2016-12-02 13:50 | NUR ---
RN NOTES WOUND DRESSINGS CHANGED.
--- NOTE | 2016-12-02 15:35 | NUR ---
RN NOTES PATIENT ON STABLE CONDITION WITH NO SIGNS OF DISTRESS OR PAIN. AT THE BEDSIDE.
[2016-12-02 16:00] VITALS: BP 120/75
--- NOTE | 2016-12-02 19:30 | NUR ---
RN NOTES: RECEIEVED PATIENT LYING COMFORTABLY IN BED, NO RESPIRATORY DOSTRESS NOTED, NO SOB NOTED, PRESENT AT BED SIDE, PATIENT IS OBTUNDED AND NON VERBAL, ON TELE-SINUS RHYTHM RATE-98-99/IV SITE , ARMANI-PICC LINE INTACT WITH TPN ON GOING AT 70 ML/HR,,INTACT J-SITE,TRACH INTACT,VENT SETTING ORDERED,ALL PRESSURE SITE OFF LOADED,GT SITE WITH TUBING ATTACHED TO DRAINAGE INTACT,COLOSTOMY SITE WORKING, ISOLATION PRECAUTION OBSERVE, BED LOW AND LOCKED,NPO. Addendum: 12/03/16 at 0527 by STERLING NICHOLS RN ERROR ENTRY:PATIENT HAS NO COLOSTOMY SITE
--- NOTE | 2016-12-02 19:44 | NUR ---
RN NOTES ALL NEEDS PROVIDED, ATTENDED, AND ANTICIPATED. KEPT PATIENT CLEAN AND COMFORTABLE IN BED, CALL LIGHT WITHIN PATIENT REACH, WILL CONTINUE TO MONITOR ACCORDINGLY. ENDORSED TO NEXT SHIFT RN TO CONTINUE CARE.
[2016-12-02 20:00] VITALS: BP 119/80
--- NOTE | 2016-12-02 21:17 | NUR ---
PT RECEIVED TRACHED ON MECHANICAL VENT W/ SETTINGS PER MD. VENT IN RED OUTLET, AMBUBAG AT BEDSIDE, VENT ALARMS CHECKED AND AUDIBLE. TRACH TUBE SECURE, PATENT. PT SX'ED AND LAVAGED PRN. NO RESP DISTRESS NOTED. PLAN IS TO CONTINUE CARE W/ CURRENT MD ORDERS AND MONITOR FOR CHANGES Addendum: 12/02/16 at 2117 by DANA ATKINS RT Amended: Links added.
[2016-12-03] VITALS: BP 141/76
--- NOTE | 2016-12-03 | NUR ---
RN NOTES: AT 2325 TPN FINISHED, STARTED A NEW BAG #23 RATE:70ML/HR,BLOOD SUGAR CHECKED-217, INSULIN GIVEN PER SCALE,TURNING AND SUCTIONING DONE,OFF LOADING OF [id number] SITES DONE;CALL LIGHT WITHIN EASY REACH.
[2016-12-03] MEDS: IPRATROPIUM NEB FS 0.5 MG/2.5 ML AMPUL.NEB IH SCH ×4 (01:13→20:39)
[2016-12-03] MEDS: ALBUTEROL FS 2.5 MG/3 ML VIAL.NEB IH SCH ×4 (01:13→20:39)
--- NOTE | 2016-12-03 02:00 | NUR ---
RN NOTES: MORNING CARE DONE, CLEAN AND CHANGE,KEPT COMFORTABLE IN BED,TURNING Q 2H DONE.
[2016-12-03 04:00] VITALS: BP 141/63
[2016-12-03] MEDS: BLOOD SUGAR DIAGNOSTIC 1 EACH STRIP IN SCH ×4 (05:35→23:13)
[2016-12-03] MEDS: INSULIN REGULAR, HUMAN 100 UNIT/ML 3 ML VIAL SQ PRN ×4 (05:35→23:17)
--- NOTE | 2016-12-03 06:00 | NUR ---
RN NOTES: BLOOD SUGAR CHECK-287, INSULIN GIVEN PER SCALE, TPN ONGOING,WILL CONTINUE TO MONITOR FOR SIGN OF HYPER AND HYPOGLYCEMIA.
--- NOTE | 2016-12-03 06:45 | NUR ---
RN NOTES: TURNING DONE,JT SITE DRAINAGE BAG CHANGE,SUCTIONING DONE,WILL ENDORSE TO NEXT SHIFT FOR CONTINUITY OF CARE. Addendum: 12/03/16 at 0739 by STERLING NICHOLS RN ADDED NOTES: G TUBE DRAINAGE IS 100CC AND J-TUBE DRAINAGE-GREENISH IN COLOR 50CC.
--- NOTE | 2016-12-03 07:45 | NUR ---
REPAIR SERVICE DISPATCHER OPENING NOTE PATIENT IS NON-VERBAL AND OBTUNDED. ON VENT. G-TUBE TO DRAIN, J-TUBE SITE TO DRAIN. IV INTACT AND PATENT NO REDNESS OR SWELLING NOTED. CALL LIGHT WITHIN REACH.SAFETY MEASURES IMPLEMENTED. TPN RUNNING AT THIS TIME. WOUND TREATMENT TO BE DONE. SUCTIONING NEEDED. WILL CONTINUE TO MONITOR
[2016-12-03 07:51] LABS: BASOPHILS # (AUTO) 0.1 /CMM (0.0-0.2); EOSINOPHILS % (AUTO) 0.3 % (0.0-6.0); HEMATOCRIT 29 % (39-51); HEMOGLOBIN 9.5 g/dL (13.5-17.5); LYMPHOCYTES # (AUTO) 1.7 /CMM (0.8-4.8); LYMPHOCYTES % (AUTO) 23.5 % (20.0-44.0); MEAN CORPUSCULAR HEMOGLOBIN 31 PG (26.0-33.0); MEAN CORPUSCULAR HGB CONC 32 g/dl (31.0-36.0); MEAN CORPUSCULAR VOLUME 94 fL (80-96); MONOCYTES # (AUTO) 0.7 /CMM (0.1-1.30); MONOCYTES % (AUTO) 9.3 % (2.0-12.0); NEUTROPHILS # (AUTO) 4.7 /CMM (1.8-8.9); NEUTROPHILS % (AUTO) 65.9 % (43.0-81.0); PLATELET COUNT (AUTO) 235 /CMM (150-450); RDW COEFFICIENT OF VARIATION 17.4 (11.5-15.0); RED BLOOD CELL COUNT(AUTO) 3.13 MIL/uL (4.5-6.0); WHITE BLOOD COUNT (AUTO) 7.2 K/uL (4.3-11.0)
[2016-12-03 08:00] VITALS: BP 137/67
[2016-12-03 08:20] LABS: CALCIUM, SERUM 8.3 mg/dL (8.5-10.1); CREATININE 0.6 mg/dL (0.6-1.3); MAGNESIUM 2.2 mg/dL (1.8-2.4); PHOSPHORUS 4.6 mg/dL (2.5-4.9); POTASSIUM 5.8 mmol/L (3.5-5.1)
[2016-12-03] MEDS: KEPPRA 500 MG in IV NS 100 ML IV SCH ×2 (09:02→20:18)
[2016-12-03] MEDS: GENTAMICIN 0.1% OINT 15 GM TUBE TP SCH ×2 (09:04→20:19)
[2016-12-03] MEDS: CLOTRIMAZOLE 1% 15 GM TUBE TP SCH ×2 (09:05→17:20)
[2016-12-03] MEDS: NYSTATIN TOP POWDER 15 GM BOTTLE TP SCH ×2 (09:06→17:20)
[2016-12-03] MEDS ORDERED: IV NS 0.9% 250 ML IV ONE (09:09)
[2016-12-03] MEDS: PANTOPRAZOLE 40 MG VIAL IV SCH (09:14)
[2016-12-03 12:00] VITALS: BP 115/73
[2016-12-03 13:53] LABS: CALCIUM, SERUM 9.2 mg/dL (8.5-10.1); CREATININE 0.6 mg/dL (0.6-1.3); MAGNESIUM 2.1 mg/dL (1.8-2.4); PHOSPHORUS 3.1 mg/dL (2.5-4.9); POTASSIUM 4.9 mmol/L (3.5-5.1)
[2016-12-03] MEDS ORDERED: TPN BAG #26 IV PRN ×7 (15:00)
[2016-12-03] MEDS ORDERED: TPN BAG #25 IV PRN ×17 (15:00)
[2016-12-03 16:00] VITALS: BP 134/79
[2016-12-03] MEDS ORDERED: IV SET PRIMARY PUMP SET 1 EA INFUS.SET MC ONE (16:04)
[2016-12-03] MEDS: FAT EMULSION 20% 500 ML in PREMIX 1 EA IV SCH (16:15)
--- NOTE | 2016-12-03 18:42 | NUR ---
CLERICAL ASSOCIATE CLOSING NOTE PATIENT IS NON VERBAL AND OBTUNDED. ON MECHANICAL VENT. NO PAIN AT THIS TIME. NO SOB OR DISTRESS NOTED. CALL LIGHT WITHIN REACH AT ALL TIMES. SAFETY MEASURES IMPLEMENTED. J-TUBE BAG DRAINED-30 ML OUTPUT. ALL DUE MEDICATIONS GIVEN ORDERED. WOUND TREATMENT DONE. REPOSITIONED Q2H. SUCTIONED NEEDED. AT BEDSIDE. WILL ENDORSE TO LEVEL VIAL GRINDER NURSE
--- NOTE | 2016-12-03 19:40 | NUR ---
MONOGRAM OPERATOR OPENING NOTE PATIENT IS NON-VERBAL AND OBTUNDED WITH AT BEDSIDE. ON VENT. G-TUBE TO DRAIN, J-TUBE SITE TO DRAIN WITH COLOSTOMY BAG. IV INTACT AND PATENT NO REDNESS OR SWELLING NOTED. CALL LIGHT WITHIN REACH.SAFETY MEASURES IMPLEMENTED. TPN RUNNING AT THIS TIME. WOUND TREATMENT TO BE DONE. SUCTIONING NEEDED. WILL CONTINUE TO MONITOR
[2016-12-03 20:00] VITALS: BP 127/83
--- NOTE | 2016-12-03 20:00 | NUR ---
MS RN VITALS PT HAS A LOW GRADE FEVER AT 99.3. COOLING MEASURES WERE INITIATED. WILL CONTINUE TO MONITOR PT
--- NOTE | 2016-12-03 21:00 | NUR ---
TEMP WENT DOWN TO 98.1 WILL CONTINUE TO MONITOR
--- NOTE | 2016-12-03 22:30 | NUR ---
OSTOMY BAG WAS CHANGED. SITE WAS CLEANSED AND GENTAMICIN WAS APPLIED
[2016-12-04] VITALS: BP 112/67
[2016-12-04] MEDS: ALBUTEROL FS 2.5 MG/3 ML VIAL.NEB IH SCH ×4 (01:56→19:46)
[2016-12-04] MEDS: IPRATROPIUM NEB FS 0.5 MG/2.5 ML AMPUL.NEB IH SCH ×4 (01:57→19:46)
[2016-12-04 04:00] VITALS: BP 114/67
[2016-12-04] MEDS ORDERED: IV SET PRIMARY PUMP SET 1 EA INFUS.SET MC ONE (05:25)
[2016-12-04] MEDS: INSULIN REGULAR, HUMAN 100 UNIT/ML 3 ML VIAL SQ PRN ×4 (05:43→23:37)
[2016-12-04] MEDS: BLOOD SUGAR DIAGNOSTIC 1 EACH STRIP IN SCH ×4 (05:47→23:28)
[2016-12-04] MEDS ORDERED: FILTER SET SAVER IV SET 1 EA INFUS.SET MC ONE (05:57)
--- NOTE | 2016-12-04 06:28 | NUR ---
WATER HYDRANT INSTALLER CLOSING NOTE PATIENT IS NON VERBAL AND OBTUNDED. ON MECHANICAL VENT. NO PAIN AT THIS TIME. NO SOB OR DISTRESS NOTED. CALL LIGHT WITHIN REACH AT ALL TIMES. SAFETY MEASURES IMPLEMENTED. J-TUBE BAG DRAINED-30 ML OUTPUT. G- TUBE DRAIN 250. ALL DUE MEDICATIONS GIVEN ORDERED. WOUND TREATMENT DONE. REPOSITIONED Q2H. SUCTIONED NEEDED. PT WAS GIVEN A BED BAG. OSTOMY BAG WAS CHANGED. WILL ENDORSE TO DAY SHIFT
[2016-12-04 07:00] VITALS: BP 121/69
--- NOTE | 2016-12-04 07:30 | NUR ---
FIRE DEPARTMENT BATTALION CHIEF NOTES PT IN BED, ASLEEP, BREATHING PATTERN NORMAL, NO SIGN OF PAIN OR DISTRESS, TPN INFUSING WELL, VENT IN PLACE, KEPT WARM AND COMFORTABLE IN BED.
--- NOTE | 2016-12-04 08:11 | NUR ---
Patient received trached on mechanical vent. Breath sounds equal bilateral.Breathing treatment given as ordered and tolerated well. No adverse reactions noted. Vent. plugged into red outlet and alarms set and functioning. Ambu bag at the bed side
[2016-12-04] MEDS: GENTAMICIN 0.1% OINT 15 GM TUBE TP SCH ×2 (08:38→21:22)
[2016-12-04] MEDS: CLOTRIMAZOLE 1% 15 GM TUBE TP SCH ×2 (08:38→18:10)
[2016-12-04] MEDS: KEPPRA 500 MG in IV NS 100 ML IV SCH ×2 (08:38→20:59)
[2016-12-04] MEDS: NYSTATIN TOP POWDER 15 GM BOTTLE TP SCH ×2 (08:39→18:10)
[2016-12-04] MEDS: PANTOPRAZOLE 40 MG VIAL IV SCH (08:39)
--- NOTE | 2016-12-04 12:00 | NUR ---
HOOKER MACHINE TENDER NOTES PT IN BED, RESTING, NO SIGN OF PAIN OR DISTRESS, TURNED AND REPOSITIONED Q2 HRS, KEPT CLEAN AND DRY, BLOOD SUGAR CHECKED, INSULIN ADMINISTERED PER SLIDING SCALE ORDERED, KEPT MARINE EQUIPMENT ENGINEER BED.
[2016-12-04 14:20] LABS: CALCIUM, SERUM 8.7 mg/dL (8.5-10.1); CREATININE 0.5 mg/dL (0.6-1.3); MAGNESIUM 1.6 mg/dL (1.8-2.4); PHOSPHORUS 2.8 mg/dL (2.5-4.9); POTASSIUM 4.2 mmol/L (3.5-5.1)
[2016-12-04 14:43] VITALS: BP 123/77
[2016-12-04 16:00] VITALS: BP 147/77
[2016-12-04] MEDS ORDERED: SECONDARY IV SET 1 EA INFUS.SET MC ONE (18:01)
[2016-12-04] MEDS: Magnesium 1GM/D5W 100ML PREMIX 100 ML IV SCH ×2 (18:10→19:34)
--- NOTE | 2016-12-04 18:30 | NUR ---
MICROGRAPHICS SERVICES SUPERVISOR NOTES PT IN BED, RESTING, NO SIGN OF PAIN OR DISCOMFORT, NOT IN DISTRESS, TURNED AND REPOSITIONED Q2 HRS, MAGNESIUM REPLACEMENT ORDER RECEIVED FROM DR. DE JESUS, PM CARE DONE, SKIN TREATMENTS DONE ORDERED, HANDLED GENTLY AT ALL TIMES, ISOLATION PRECAUTIONS OBSERVED, KEPT SKIN CLEAN AND DRY.
--- NOTE | 2016-12-04 19:39 | NUR ---
BG 258 MG/DL, CONTINUE TPN,
[2016-12-04 20:00] VITALS: BP 145/86
[2016-12-04] MEDS ORDERED: TPN BAG #27 IV PRN ×9 (20:00)
[2016-12-04] MEDS ORDERED: FILTER [FOR TRIPLE MIX] SET 1 EA INFUS.SET MC ONE (20:00)
--- NOTE | 2016-12-04 20:00 | NUR ---
RECEIVED PATIENT IN BED, AWAKE, NON-VERBAL, VENTILATOR DEPENDENT, SP02 SAT 100%, NO SOB, NO RESPIRATORY DISTRESS, NOT IN APPARENT PAIN, NO FACIAL GRIMACING. KEPT HOB ELEVATED, RIGHT UPPER ARM PICC INFUSING WELL WITH TPN, CHANGED TO NEW BAG, PEG TUBE DRAINING WELL OF YELLOWISH FLUID, LEFT LOWER QUADRANT FORMER JTUBE SITE DRAINING WELL WITH GREENISH FLUID INTO OSTOMY BAG, SURROUNDING SKIN IS CLEAN AND DRY, NO REDNESS. KEPT SAFE AND COMFORTABLE, CALL LIGHT WITHIN REACH.
[2016-12-04] MEDS ORDERED: GENTAMICIN 0.1% OINT 15 GM TUBE TP ONE (21:13)
[2016-12-05] VITALS: BP 138/83
[2016-12-05] MEDS: ALBUTEROL FS 2.5 MG/3 ML VIAL.NEB IH SCH ×4 (00:51→19:52)
[2016-12-05] MEDS: IPRATROPIUM NEB FS 0.5 MG/2.5 ML AMPUL.NEB IH SCH ×4 (00:51→19:52)
--- NOTE | 2016-12-05 01:56 | NUR ---
SEEN BY DR. DE JESUS, NO NEW ORDER
[2016-12-05 04:00] VITALS: BP 139/75
--- NOTE | 2016-12-05 05:19 | NUR ---
CHANGED OSTOMY BAG, STOMA IS RED, SURROUNDING SKIN IS DRY AND CLEAN
[2016-12-05] MEDS: BLOOD SUGAR DIAGNOSTIC 1 EACH STRIP IN SCH ×4 (05:28→23:06)
[2016-12-05] MEDS: INSULIN REGULAR, HUMAN 100 UNIT/ML 3 ML VIAL SQ PRN ×4 (05:34→23:09)
--- NOTE | 2016-12-05 06:29 | NUR ---
PATIENT IS AWAKE, NO RESPIRATORY DISTRESS, SP02 REMAINED AT 100%, NOT IN APPARENT PAIN, AFEBRILE, KEPT HOB ELEVATED, RIGHT UPPER ARM PICC LINE IS PATENT AND INFUSING WELL WITH TPN. GASTRIC DRAIN IS DRAINING YELLOWISH FLUID AND LEFT LOWER ABDOMEN DRAIN IS DRAINING WITH GREEN FLUID INTO THE OSTOMY BAG. ALL DUE MEDICATIONS GIVEN, KEPT SAFE AND COMFORTABLE, GOOD PERINEAL CARE GIVEN, CALL LIGHT WITHIN REACH.
[2016-12-05 07:00] VITALS: BP 136/84
[2016-12-05 07:51] LABS: CALCIUM, SERUM 8.4 mg/dL (8.5-10.1); CREATININE 0.6 mg/dL (0.6-1.3); MAGNESIUM 2.5 mg/dL (1.8-2.4); PHOSPHORUS 4.1 mg/dL (2.5-4.9); POTASSIUM 4.6 mmol/L (3.5-5.1)
--- NOTE | 2016-12-05 08:09 | NUR ---
MS RN NOTES RECEIVED A CALL FROM LAB ON A CRITICAL GLUCOSE OF [phone]. MORNING ACCUCHECK AND RECHECK DONE BY ME SHOW BLOOD SUGAR LESS THAN 250. PLACED A REDRAW ORDER FOR LAB TO CHECK GLUCOSE LEVEL AGAIN.
[2016-12-05] MEDS: KEPPRA 500 MG in IV NS 100 ML IV SCH ×2 (08:26→20:30)
[2016-12-05] MEDS: PANTOPRAZOLE 40 MG VIAL IV SCH (08:26)
[2016-12-05] MEDS: CLOTRIMAZOLE 1% 15 GM TUBE TP SCH ×2 (08:26→17:32)
[2016-12-05] MEDS: GENTAMICIN 0.1% OINT 15 GM TUBE TP SCH ×2 (08:27→20:31)
[2016-12-05] MEDS: NYSTATIN TOP POWDER 15 GM BOTTLE TP SCH ×2 (08:27→17:31)
[2016-12-05] MEDS ORDERED: TPN BAG #28 IV PRN ×13 (09:00→13:08)
[2016-12-05] MEDS ORDERED: IV SET PRIMARY PUMP SET 1 EA INFUS.SET MC ONE ×2 (11:03→16:09)
[2016-12-05] MEDS ORDERED: FILTER SET SAVER IV SET 1 EA INFUS.SET MC ONE (11:03)
[2016-12-05] MEDS ORDERED: TPN BAG #29 IV PRN ×9 (13:30)
[2016-12-05 15:56] VITALS: BP 149/82
[2016-12-05] MEDS: FAT EMULSION 20% 500 ML in PREMIX 1 EA IV SCH (16:27)
--- NOTE | 2016-12-05 18:28 | NUR ---
UTILITY SUPERVISOR BOAT AND PLANT CLOSING NOTES NO SIGNIFICANT CHANGE IN PATIENT CONDITION THROUGHOUT THE SHIFT. VENT SETTINGS REMAIN UNCHANGED. NO SOB OR DISTRESS NOTED AT THIS TIME. PATIENT DOES NOT APPEAR TO BE IN PAIN, NO FACIAL GRIMACE NOTED, NO CHANGE IN VITAL SIGNS. HEART RATE IS ST 110. BED IN A LOW POSITION, FAMILY IS AT THE BEDSIDE. WILL ENDORSE FOR BLANCA.
--- NOTE | 2016-12-05 19:30 | NUR ---
BOX LINING MACHINE FEEDER OPENING NOTE PATIENT IS NON-VERBAL AND OBTUNDED WITH AT BEDSIDE. ON VENT. G-TUBE TO DRAIN, J-TUBE SITE TO DRAIN WITH COLOSTOMY BAG. IV INTACT AND PATENT NO REDNESS OR SWELLING NOTED. CALL LIGHT WITHIN REACH.SAFETY MEASURES IMPLEMENTED. TPN RUNNING AT THIS TIME. WOUND TREATMENT TO BE DONE AND OSTOMY BAG CHANGE. SUCTIONING NEEDED. WILL CONTINUE TO MONITOR
[2016-12-05 20:00] VITALS: BP 127/75
--- NOTE | 2016-12-05 20:00 | NUR ---
MS RN VITALS PT HAS A LOW GRADE FEVER AT 100.3. COOLING MEASURES WERE INITIATED. WILL CONTINUE TO MONITOR PT
--- NOTE | 2016-12-05 22:00 | NUR ---
VITALS NOTES TEMP WENT DOWN TO 98.4 WILL CONTINUE TO MONITOR
[2016-12-06] VITALS: BP 139/87
[2016-12-06] MEDS: ALBUTEROL FS 2.5 MG/3 ML VIAL.NEB IH SCH ×4 (01:30→19:21)
[2016-12-06] MEDS: IPRATROPIUM NEB FS 0.5 MG/2.5 ML AMPUL.NEB IH SCH ×4 (01:30→19:21)
[2016-12-06 04:00] VITALS: BP_SYST 111; BP_SYST 147; BP_DIAS 74; BP_DIAS 81
[2016-12-06] MEDS: INSULIN REGULAR, HUMAN 100 UNIT/ML 3 ML VIAL SQ PRN ×3 (06:02→17:20)
[2016-12-06] MEDS: BLOOD SUGAR DIAGNOSTIC 1 EACH STRIP IN SCH ×3 (06:03→17:16)
--- NOTE | 2016-12-06 06:42 | NUR ---
SUSTAINABILITY ANALYST CLOSING NOTE PATIENT IS NON VERBAL AND OBTUNDED. ON MECHANICAL VENT. NO PAIN AT THIS TIME. NO SOB OR DISTRESS NOTED. CALL LIGHT WITHIN REACH AT ALL TIMES. SAFETY MEASURES IMPLEMENTED. J-TUBE BAG DRAINED- 75ML OUTPUT. G- TUBE DRAIN 100 . ALL DUE MEDICATIONS GIVEN ORDERED. WOUND TREATMENT DONE. REPOSITIONED Q2H. SUCTIONED NEEDED. PT WAS GIVEN A SPONGE BATH. OSTOMY BAG WAS CHANGED. WILL ENDORSE TO DAY SHIFT
[2016-12-06 07:50] LABS: CALCIUM, SERUM 8.5 mg/dL (8.5-10.1); CREATININE 0.6 mg/dL (0.6-1.3); MAGNESIUM 1.6 mg/dL (1.8-2.4); POTASSIUM 3.7 mmol/L (3.5-5.1)
[2016-12-06 08:00] VITALS: BP 129/72
[2016-12-06] MEDS ORDERED: FILTER SET SAVER IV SET 1 EA INFUS.SET MC ONE (09:06)
[2016-12-06] MEDS ORDERED: EXTENSION IV SET 1 EA INFUS.SET MC ONE (09:08)
[2016-12-06] MEDS ORDERED: TPN BAG #30 IV PRN ×7 (09:30)
[2016-12-06] MEDS: KEPPRA 500 MG in IV NS 100 ML IV SCH ×2 (09:39→20:12)
[2016-12-06] MEDS: PANTOPRAZOLE 40 MG VIAL IV SCH (09:39)
[2016-12-06] MEDS: CLOTRIMAZOLE 1% 15 GM TUBE TP SCH ×2 (09:39→17:13)
[2016-12-06] MEDS: GENTAMICIN 0.1% OINT 15 GM TUBE TP SCH ×2 (09:39→20:16)
[2016-12-06] MEDS: NYSTATIN TOP POWDER 15 GM BOTTLE TP SCH ×2 (09:40→17:13)
[2016-12-06] MEDS ORDERED: TPN BAG #31 IV PRN ×9 (10:00)
[2016-12-06] MEDS ORDERED: Magnesium 1GM/D5W 100ML PREMIX 100 ML IV SCH (10:00)
--- NOTE | 2016-12-06 11:37 | NUR ---
TOLERATING MAGNESIUM INFUSION WELL 103 BEATS PER MINUTE ON TELEMETRY. DOWN FROM 110 BEATS PER MINUTE. TWO HUNDRED SEVENTY THREE MILLIGRAM PER DECILITER BLOOD GLUCOSE COVERAGE PER REGULAR INSULIN SLIDING SCALE WITH SIX UNITS.
[2016-12-06 12:00] VITALS: BP 121/76
--- NOTE | 2016-12-06 12:16 | NUR ---
Patient handoff. Pt being turned and repositioned by POWDER CUTTING OPERATOR and private caregiver of the patient.
--- NOTE | 2016-12-06 12:30 | NUR ---
RN NOTES RECEIVED PATIENT IN BED , ON [facility] VENT WITH BREATHING NORMAL, EVEN AND UNLABORED. NO SOB NOTED. VENT SETTING REVIEWED AND VERIFIED, TOLERATED WELL. NO ACUTE DISTRESS NOTED. TELE MONITOR REVEALS ST, NB=[id number]. ARMANI PICC LINE IS PATENT AND INTACT, RUNNING TPN AND LIPID PER ORDER. KEPT CLEAN, DRY AND COMFORTABLE. ALL NEEDS ATTENDED. SAFETY MEASURE OBSERVED. SITTER AT BEDSIDE. CALL LIGHT WITH IN REACH. WILL CONT TO MONITOR.
[2016-12-06 16:00] VITALS: BP 144/82
--- NOTE | 2016-12-06 19:26 | NUR ---
RN NOTES PATIENT ENDORSED TO NEXT SHIFT IN STABLE CONDITION WITH BREATHING NORMAL, EVEN AND UNLABORED. NO SOB NOTED. NO ACUTE DISTRESS NOTED. KEPT CLEAN, DRY AND COMFORTABLE. ALL NEEDS ATTENDED. SAFETY MEASURE OBSERVED. CALL LIGHT WITH IN REACH. WILL CONT TO MONITOR.
--- NOTE | 2016-12-06 19:26 | NUR ---
PT HR WAS GOING ABOVE 120. ALBUTEROL NOT GIVEN AT THIS TIME. ATROVENT WAS GIVEN. SX SMALL AMOUNT OF THIN WHITE SECRETIONS. RN NOTIFIED. WILL CONT TO MONITOR PATIENT.
--- NOTE | 2016-12-06 19:30 | NUR ---
RENAL NURSE NOTES RECEIVED PT IN BED, OBTUNDED. ON VENT. SETTINGS ORDERED. NO ACUTE RESP. DISTRESS NOTED. APPEARS COMFORTABLE. ARMANI PICC LINE NOTED WITH TPN INFUSING WELL AT 60CC/HR. G-TUBE SITE WITH DRAINING WELL. J-TUBE SITE WITH COLOSTOMY BAG. WILL MONITOR OUTPUT. HOB ELEVATED. CLEAN AND DRY. SAFETY MEASURES AND CONTACT ISOLATION PRECAUTION MAINTAINED. CALL LIGHT WITHIN EASY REACH. WILL CONT TO MONITOR.
[2016-12-06 20:00] VITALS: BP 122/87
[2016-12-07] VITALS (7 sets, daily range): BP systolic 111–136; BP diastolic 65–99
[2016-12-07] MEDS: BLOOD SUGAR DIAGNOSTIC 1 EACH STRIP IN SCH ×4 (00:52→18:34)
[2016-12-07] MEDS: INSULIN REGULAR, HUMAN 100 UNIT/ML 3 ML VIAL SQ PRN ×4 (00:56→18:36)
[2016-12-07] MEDS: IPRATROPIUM NEB FS 0.5 MG/2.5 ML AMPUL.NEB IH SCH ×4 (01:24→19:21)
[2016-12-07] MEDS: ALBUTEROL FS 2.5 MG/3 ML VIAL.NEB IH SCH ×4 (01:24→19:21)
[2016-12-07] MEDS ORDERED: FILTER SET SAVER IV SET 1 EA INFUS.SET MC ONE (01:31)
[2016-12-07] MEDS ORDERED: IV SET PRIMARY PUMP SET 1 EA INFUS.SET MC ONE ×5 (01:37→20:42)
[2016-12-07 06:43] LABS: BASOPHILS # (AUTO) 0.1 /CMM (0.0-0.2); BASOPHILS % (AUTO) 1.3 % (0.0-2.0); EOSINOPHILS % (AUTO) 0.1 % (0.0-6.0); HEMATOCRIT 29 % (39-51); HEMOGLOBIN 9.6 g/dL (13.5-17.5); LYMPHOCYTES # (AUTO) 2.2 /CMM (0.8-4.8); LYMPHOCYTES % (AUTO) 27.3 % (20.0-44.0); MEAN CORPUSCULAR HEMOGLOBIN 30 PG (26.0-33.0); MEAN CORPUSCULAR HGB CONC 33 g/dl (31.0-36.0); MEAN CORPUSCULAR VOLUME 91 fL (80-96); MONOCYTES # (AUTO) 0.8 /CMM (0.1-1.30); MONOCYTES % (AUTO) 9.7 % (2.0-12.0); NEUTROPHILS % (AUTO) 61.6 % (43.0-81.0); PLATELET COUNT (AUTO) 249 /CMM (150-450); RDW COEFFICIENT OF VARIATION 16.4 (11.5-15.0); WHITE BLOOD COUNT (AUTO) 8.1 K/uL (4.3-11.0)
[2016-12-07 07:02] LABS: ALBUMIN 2.6 g/dL (3.4-5.0); CALCIUM, SERUM 8.5 mg/dL (8.5-10.1); CREATININE 0.5 mg/dL (0.6-1.3); MAGNESIUM 1.8 mg/dL (1.8-2.4); POTASSIUM 3.3 mmol/L (3.5-5.1); TOTAL PROTEIN, SERUM 7.3 g/dL (6.4-8.2)
--- NOTE | 2016-12-07 07:25 | NUR ---
MICROARRAY OPERATIONS VICE PRESIDENT NOTES PT REMAINS THE SAME THROUGHOUT THE NIGHT. ENDORSED TO YOUSUF STARKEY NURSE IN STABLE CONDITION.
--- NOTE | 2016-12-07 07:42 | NUR ---
BOTTLE AND GLASS INSPECTOR NOTES RECEIVED REPORT WITH PATIENT IN BED. PATIENT IS NONVERBAL, UNABLE TO TRACK. BREATHING IS EVEN AND UNLABORED. PATIENT ON VENT. VENT SETTINGS HAVE BEEN NOTED. PATIENT ON MONITOR: SINUS TACHY AT 103. NO S/S OF DISTRESS NOTED. ARMANI PICC LINE IS PATENT AND INTACT. G-TUBE SITE DRAINING. J-TUBE SITE DRAINING. BED IS IN THE LOWEST, LOCKED POSITION WITH HOB ELEVATED. WILL CONTINUE TO MONITOR THROUGHOUT SHIFT.
[2016-12-07] MEDS: GENTAMICIN 0.1% OINT 15 GM TUBE TP SCH ×2 (08:39→20:44)
[2016-12-07] MEDS: PANTOPRAZOLE 40 MG VIAL IV SCH (08:40)
[2016-12-07] MEDS: KEPPRA 500 MG in IV NS 100 ML IV SCH ×2 (08:40→20:41)
[2016-12-07] MEDS: NYSTATIN TOP POWDER 15 GM BOTTLE TP SCH ×2 (08:41→18:36)
[2016-12-07] MEDS: CLOTRIMAZOLE 1% 15 GM TUBE TP SCH ×2 (08:41→18:36)
[2016-12-07] MEDS ORDERED: IV NS 0.9% 250 ML IV ONE (09:45)
[2016-12-07] MEDS ORDERED: SECONDARY IV SET 1 EA INFUS.SET MC ONE ×2 (09:46→20:42)
[2016-12-07] MEDS: POTASSIUM CL. PREMIX PERIPHER. 50 ML IV SCH ×2 (09:56→11:32)
--- NOTE | 2016-12-07 13:30 | NUR ---
STRAINER CLEANER NOTES CALLED DR. DE JESUS'S OFFICE REGARDING 'S CONCERN OF PROTRUDING J-TUBE. NO RESPONSE. WILL CONTINUE TO MONITOR.
[2016-12-07] MEDS: FAT EMULSION 20% 500 ML in PREMIX 1 EA IV SCH (16:33)
--- NOTE | 2016-12-07 17:48 | NUR ---
RT RECEIVED PATIENT TRACH'D WITH PORTEX #9 CUFFED ON [facility] VENT WITH SETTINGS PER MD ORDER. DIAMOND MOUNTER DONE. BILAT RHONCHI BREATH SOUNDS ON AUSCULTATION. SUCTIONED SMALL AMOUNTS OF THICK, WHITE/OREILLY SECRETIONS. ALARMS ON AND WORKING PROPERLY. TRACH SECURED AND AIRWAY PATENT. VENT PLUGGED INTO RED OUTLET. AMBU BAG AT BEDSIDE. TX'S GIVEN ORDERED. NO ADVERSE EFFECTS OBSERVED. NO SIGNS OF DISTRESS NOTED AT THIS TIME. WILL CONTINUE TO MONITOR THE PATIENT FOR ANY CHANGES. Addendum: 12/07/16 at 1827 by BERNIE HALL RT Amended: Links added.
[2016-12-07] MEDS ORDERED: TPN BAG #31 IV PRN ×9 (18:00)
--- NOTE | 2016-12-07 18:30 | NUR ---
ACCOUNTANT PROPERTY NOTES LEFT VM FOR DR. DE JESUS REGARDING PATIENT'S 'S CONCERN OF PROTRUDING J-TUBE SITE.
--- NOTE | 2016-12-07 19:15 | NUR ---
BLOCK CUBER NOTES PATIENT IS NONVERBAL, OBTUNDED. BREATHING IS EVEN AND UNLABORED. NO S/S OF DISTRESS. PATIENT'S G TUBE SITE DRAINING AND J-TUBE DRAINING. G-TUBE OUTPUT WAS AT 100ML. J-TUBE OUTPUT WAS AT 60ML. IS AT BEDSIDE. PICC LINE IS PATENT AND INTACT. VENTILATOR SETTINGS HAVE BEEN NOTED. PATIENT ON MONITOR: SINUS TACHY HR 105. BED IS IN THE LOWEST, LOCKED POSITION. WILL ENDORSE CARE TO PM SHIFT.
--- NOTE | 2016-12-07 19:45 | NUR ---
RN OPENING NOTES RECEIVED REPORT FROM LAURA RN. FOUND Pt AWAKE IN BED. VISITING AT BEDSIDE. Pt IS NON-VERBAL & OBTUNDED. NO S/S OF ACUTE DISTRESS OR SOB NOTED. ON VENT WITH SETTINGS AT: AC 14, TV 550, FIO2 40%, PEEP 0, WITH PORTEX#8. ON TELE WITH ST 105. J TUBE DRAIN & G TUBE DRAIN IN PLACE, NO LEAKAGE FOUND. IV ACCESS ON ARMANI PICC LINE, WITH IV LIPIDS RUNNING @20ML/HR & IV TPN RUNNING @60ML/HR. SAFETY MEASURES IN PLACE. BED LOW, LOCKED, HOB ELEVATED, SIDE RAILS UP, CALL LIGHT AND BEDSIDE TABLE WITHIN REACH. WILL CONTINUE TO MONITOR Pt THROUGHOUT THE NIGHT FOR SAFETY.
--- NOTE | 2016-12-07 21:55 | NUR ---
RN NOTES NEW BAG OF TPN STARTED. ACCUCHECK BG 175.
--- NOTE | 2016-12-08 00:35 | NUR ---
RN NOTES DR. DE JESUS CAME IN TO SEE THE Pt. WAS INFORMED FROM THE DAYSHIFT RN THAT PART OF THE INTESTINE LOOKED LIKE IT WAS PROTRUDING OUT OF THE J-TUBE SITE. NEAL SAID THAT DR. BABCOCK (THE VASCULAR SURGEON) SHOULD BE INFORMED OF THE SITUATION BECAUSE IT LOOKS LIKE THE J TUBE SITE IS HERNIATED AND NEEDS TO BE PUSHED BACK IN.
[2016-12-08] MEDS: BLOOD SUGAR DIAGNOSTIC 1 EACH STRIP IN SCH ×4 (00:47→17:02)
[2016-12-08] MEDS: INSULIN REGULAR, HUMAN 100 UNIT/ML 3 ML VIAL SQ PRN ×4 (00:59→17:06)
[2016-12-08 01:08] VITALS: BP 171/85
[2016-12-08] MEDS: ALBUTEROL FS 2.5 MG/3 ML VIAL.NEB IH SCH ×4 (01:17→19:40)
[2016-12-08] MEDS: IPRATROPIUM NEB FS 0.5 MG/2.5 ML AMPUL.NEB IH SCH ×4 (01:18→19:40)
[2016-12-08 04:48] VITALS: BP 171/85
[2016-12-08 04:49] VITALS: BP 171/85
--- NOTE | 2016-12-08 06:40 | NUR ---
RN CLOSING NOTES NO SIGNIFICANT CHANGES TO Pt's CONDITION. ALL NEEDS MET AND ATTENDED TO. SAFETY MEASURES IN PLACE. WILL ENDORSE TO DAYSHIFT RN FOR Pt's BLANCA. TELE READING ST 100
--- NOTE | 2016-12-08 07:38 | NUR ---
RN NOTES RECEIVED PATIENT IN BED; OBTUNDED. NO SIGNS OF DISTRESS OR PAIN NOTED. ON TELE MONITOR SINUS RHYTHM HR 102. IV PICC LINE IS PATENT, INTACT. ON VENT, PRESSURE SITES OFFLOADED. ON LOW BED WITH BILATERAL SIDE RAILS UP. CONTACT ISOLATION. WILL CONTINUE TO MONITOR.
[2016-12-08] MEDS ORDERED: SECONDARY IV SET 1 EA INFUS.SET MC ONE ×2 (07:50→10:40)
[2016-12-08 08:00] VITALS: BP 123/72
[2016-12-08 08:10] LABS: CALCIUM, SERUM 8.3 mg/dL (8.5-10.1); CREATININE 0.6 mg/dL (0.6-1.3); MAGNESIUM 1.6 mg/dL (1.8-2.4); PHOSPHORUS 2.6 mg/dL (2.5-4.9); POTASSIUM 3.4 mmol/L (3.5-5.1)
[2016-12-08] MEDS: KEPPRA 500 MG in IV NS 100 ML IV SCH ×2 (08:39→21:49)
[2016-12-08] MEDS: PANTOPRAZOLE 40 MG VIAL IV SCH (08:40)
[2016-12-08] MEDS ORDERED: IV SET PRIMARY PUMP SET 1 EA INFUS.SET MC ONE (08:41)
[2016-12-08] MEDS: CLOTRIMAZOLE 1% 15 GM TUBE TP SCH ×2 (08:47→16:34)
[2016-12-08] MEDS: GENTAMICIN 0.1% OINT 15 GM TUBE TP SCH ×2 (08:48→21:49)
[2016-12-08] MEDS: NYSTATIN TOP POWDER 15 GM BOTTLE TP SCH ×2 (08:48→16:34)
--- NOTE | 2016-12-08 09:20 | NUR ---
RN NOTES DR. DE JESUS CAME AND ASKED TO CONSULT WITH DR. BABCOCK ABOUT THE POSSIBLE HERNIATION ON THE J TUBE SITE.
--- NOTE | 2016-12-08 09:50 | NUR ---
RN NOTES I SPOKE TO DR. BABCOCK ON THE PHONE ABOUT THE POSSIBLE HERNIATION ON THE J TUBE SITE AND HE SAID THAT WILL COME LATER ON TO CHECK.
[2016-12-08] MEDS ORDERED: TPN BAG #33 IV PRN ×9 (10:30)
[2016-12-08] MEDS ORDERED: TPN BAG #34 IV PRN ×7 (10:30)
[2016-12-08] MEDS ORDERED: Magnesium 1GM/D5W 100ML PREMIX 100 ML IV SCH (10:30)
[2016-12-08] MEDS ORDERED: TPN BAG #32 IV PRN ×7 (10:30)
[2016-12-08] MEDS ORDERED: IV NS 0.9% 250 ML IV ONE (10:42)
[2016-12-08] MEDS ORDERED: POTASSIUM PHOSPHATE MM 7.5 MMOL in IV NS 0.9% 100 ML IV SCH (11:00)
[2016-12-08] MEDS: POTASSIUM CL. PREMIX PERIPHER. 50 ML IV SCH ×2 (12:39→13:52)
--- NOTE | 2016-12-08 14:35 | NUR ---
RN NOTES DR. BABCOCK CAME AND HE TOLD ME THAT SURGERY IS NOT REQUIRED AT THIS MOMENT AND HE SAID TO KEEP THE J TUBE SITE PLUGGED WITH 4X4 GAUZES AND CHANGE THEM NEED IT.
--- NOTE | 2016-12-08 15:20 | NUR ---
RT PATIENT TRACH'D WITH PORTEX #9 CUFFED ON [facility] VENT WITH SETTINGS PER MD ORDER. PULLEY MAN DONE. BILAT RHONCHI BREATH SOUNDS ON AUSCULTATION. SUCTIONED SMALL AMOUNTS OF THICK, WHITE/OREILLY SECRETIONS. ALARMS SET AND FUNCTIONING PROPERLY. TRACH SECURED AND AIRWAY PATENT. VENT PLUGGED INTO RED OUTLET. AMBU BAG AT BEDSIDE. TX'S GIVEN ORDERED. NO ADVERSE REACTIONS OBSERVED. NO SIGNS OF RESPIRATORY DISTRESS NOTED AT THIS TIME. WILL CONTINUE TO MONITOR THE PATIENT FOR ANY CHANGE OF CONDITION. Addendum: 12/08/16 at 1523 by BERNIE HALL RT Amended: Links added.
[2016-12-08] MEDS ORDERED: FILTER [FOR TRIPLE MIX] SET 1 EA INFUS.SET MC ONE (15:58)
[2016-12-08 16:00] VITALS: BP 147/88
--- NOTE | 2016-12-08 17:27 | NUR ---
RN NOTES AT BEDSIDE WITH PATIENT ON STABLE CONDITION WITH NO SIGNS OF SOB OR DISTRESS NOTED.
--- NOTE | 2016-12-08 19:40 | NUR ---
CHRONOGRAPH OPERATOR NOTE: PATIENT RESTING IN BED, NO ACUTE DISTRESS NOTED, FAMILY AT BEDSIDE. BREATHING EVEN AND UNLABORED, NO SOB NOTED. VENT SETTING IN PLACE. PICC LINE TO RIGHT UPPER ARM IN PLACE. TELE READING SINUS TACH 108. J-TUBE WITH COLOSTOMY BAG IN PLACE, EMPTY AT THIS TIME. ISOLATION PRECAUTION OBSERVED. BED LOCKED AND IN LOWEST POSITION, CALL LIGHT IN REACH. WILL CONTINUE TO MONITOR.
[2016-12-08 20:49] VITALS: BP 138/83
[2016-12-09] VITALS (7 sets, daily range): BP systolic 93–138; BP diastolic 57–74
[2016-12-09] MEDS: BLOOD SUGAR DIAGNOSTIC 1 EACH STRIP IN SCH ×5 (00:10→23:34)
[2016-12-09] MEDS: INSULIN REGULAR, HUMAN 100 UNIT/ML 3 ML VIAL SQ PRN ×5 (00:14→23:43)
--- NOTE | 2016-12-09 00:15 | NUR ---
PARQUET FLOOR LAYER NOTE: PATIENT BLOOD SUGAR LEVEL 183MG/DL, PATIENT TO RECEIVE 3 UNITS PER SLIDING SCALE. NO S/S OF HYPER/HYPOGLYCEMIA NOTED. WILL CONTINUE TO MONITOR.
[2016-12-09] MEDS: ALBUTEROL FS 2.5 MG/3 ML VIAL.NEB IH SCH ×4 (01:03→20:01)
[2016-12-09] MEDS: IPRATROPIUM NEB FS 0.5 MG/2.5 ML AMPUL.NEB IH SCH ×4 (01:04→20:01)
--- NOTE | 2016-12-09 06:15 | NUR ---
GREEN LUMBER GRADER NOTE: PATIENT RESTING IN BED, NO ACUTE DISTRESS NOTED. BREATHING EVEN AND UNLABORED, NO SOB NOTED. VENT SETTING IN PLACE. PICC LINE TO RIGHT UPPER ARM IN PLACE. TELE READING SINUS TACH 100. J-TUBE WITH COLOSTOMY BAG IN PLACE, G-TUBE IN PLACE. ISOLATION PRECAUTION OBSERVED. BED LOCKED AND IN LOWEST POSITION, CALL LIGHT IN REACH. WILL ENDORSE TO DAY NURSE TO CONTINUE WITH PLAN OF CARE.
--- NOTE | 2016-12-09 07:10 | NUR ---
RECEIVED PATIENT IN BED, NON-VERBAL, OBTUNDED. PT IS ON VENT, NO SHORTNESS OF BREATH OR DIFFICULTY BREATHING. ARMANI PICC LINE INTACT AND PATENT, RUNNING TPN AT 60 ML/HR. G-TUBE CONNECTED TO MAI, DRAINING GREEN/YELLOW FLUID. J-TUBE SITE DRAINING AND COVER WITH COLOSTOMY BAG. BED IS IN LOW AND LOCKED POSITION. WILL CONTINUE TO MONITOR THROUGHOUT SHIFT.
[2016-12-09 07:22] LABS: BASOPHILS # (AUTO) 0.1 /CMM (0.0-0.2); BASOPHILS % (AUTO) 0.5 % (0.0-2.0); HEMATOCRIT 27 % (39-51); HEMOGLOBIN 9.1 g/dL (13.5-17.5); LYMPHOCYTES # (AUTO) 1.2 /CMM (0.8-4.8); LYMPHOCYTES % (AUTO) 10.5 % (20.0-44.0); MEAN CORPUSCULAR HEMOGLOBIN 30 PG (26.0-33.0); MEAN CORPUSCULAR HGB CONC 33 g/dl (31.0-36.0); MEAN CORPUSCULAR VOLUME 90 fL (80-96); MONOCYTES # (AUTO) 0.7 /CMM (0.1-1.30); MONOCYTES % (AUTO) 5.9 % (2.0-12.0); NEUTROPHILS # (AUTO) 9.6 /CMM (1.8-8.9); NEUTROPHILS % (AUTO) 83.1 % (43.0-81.0); PLATELET COUNT (AUTO) 228 /CMM (150-450); RDW COEFFICIENT OF VARIATION 16.5 (11.5-15.0); RED BLOOD CELL COUNT(AUTO) 3.03 MIL/uL (4.5-6.0); WHITE BLOOD COUNT (AUTO) 11.5 K/uL (4.3-11.0)
[2016-12-09 07:36] LABS: CALCIUM, SERUM 8.5 mg/dL (8.5-10.1); CREATININE 0.5 mg/dL (0.6-1.3); MAGNESIUM 2.2 mg/dL (1.8-2.4); POTASSIUM 3.4 mmol/L (3.5-5.1)
[2016-12-09] MEDS: PANTOPRAZOLE 40 MG VIAL IV SCH (08:07)
[2016-12-09] MEDS: KEPPRA 500 MG in IV NS 100 ML IV SCH ×2 (08:07→20:07)
[2016-12-09] MEDS: GENTAMICIN 0.1% OINT 15 GM TUBE TP SCH ×2 (08:09→20:07)
[2016-12-09] MEDS: CLOTRIMAZOLE 1% 15 GM TUBE TP SCH ×2 (08:09→17:04)
[2016-12-09] MEDS: NYSTATIN TOP POWDER 15 GM BOTTLE TP SCH ×2 (08:09→17:04)
--- NOTE | 2016-12-09 08:59 | NUR ---
PATIENT IS SEEN BY DR. BABCOCK TODAY, PER MD, PLACEMENT OF PURSESTRING SUTURE AROUND JTUBE ON SUNDAY (12/11/16), FAMILY INFORMED. PER MD THERE'S NO NEED FOR CONSENT, AND PROCEDURE TO BE DONE AT BEDSIDE.
--- NOTE | 2016-12-09 09:50 | NUR ---
Patient received trached on mechanical vent. Breath sounds equal bilateral. Breathing tretment given as ordered and tolerated well. No adverse reactions noted. Vent plugged into red outlet and alarms set and functioning. Ambu bag at the bed side.
[2016-12-09] MEDS ORDERED: FILTER [FOR TRIPLE MIX] SET 1 EA INFUS.SET MC ONE (10:28)
[2016-12-09] MEDS ORDERED: CEFEPIME 1 GM VIAL IV SCH (10:30)
[2016-12-09] MEDS: CEFEPIME 1 GM in IV D5W 50 ML IV SCH ×2 (12:20→22:40)
[2016-12-09] MEDS ORDERED: TPN BAG #34 IV PRN ×14 (14:33→14:42)
--- NOTE | 2016-12-09 14:59 | NUR ---
LOW POTASSIUM LEVEL 3.4 PER [facility], WILL ADD TO NEXT TPN FORMULA.
[2016-12-09] MEDS ORDERED: IV SET PRIMARY PUMP SET 1 EA INFUS.SET MC ONE (15:49)
[2016-12-09] MEDS: FAT EMULSION 20% 500 ML in PREMIX 1 EA IV SCH (15:54)
--- NOTE | 2016-12-09 18:37 | NUR ---
PATIENT RESTING IN BED. NO SIGNS OF DISTRESS OR SHORTNESS OF BREATH. VENT SETTINGS IN PLACE. PICC LINE ON ARMANI PATENT AND INTACT, RUNNING TPN AT 60ML/HR AND LIPIDS AT 20 ML/HR. J-TUBE WITH COLOSTOMY IN PLACE AND G-TUBE ATTACHED TO MAI IN PLACE. BED IS IN LOW AND LOCKED POSITION WITH SIDE RAILS UP X2. WILL ENDORSE TO FAST FOOD DELIVERY DRIVER NURSE FOR CONTINUITY OF CARE.
--- NOTE | 2016-12-09 19:00 | NUR ---
RN NOTE RECEIVED REPORT. PT NON VERBAL, TRACH VENT - SETTINGS ACCURATE. NO S/S OF ANY DISTRESS AT THIS TIME. J TUBE DRAINING TO COLOSTOMY, G TUBE DRAINING TO MAI. PICC LINE INTACT AND PATENT, TOLERATING LIPIDS AND TPN WELL. AT BEDSIDE, UPDATED ON POC. WILL CONT TO MONITOR. Addendum: 12/09/16 at 1942 by SHAMIR GOODE RN TELE SHOWS ST IN 100'S.
[2016-12-10] VITALS: BP 122/73
--- NOTE | 2016-12-10 01:23 | NUR ---
RN NOTE PT APPEARS COMFORTABLE. NO DISTRESS NOTED AT THIS TIME. REPOSITIONED Q2HRS. WILL MONITOR.
[2016-12-10] MEDS: IPRATROPIUM NEB FS 0.5 MG/2.5 ML AMPUL.NEB IH SCH ×4 (01:48→19:43)
[2016-12-10] MEDS: ALBUTEROL FS 2.5 MG/3 ML VIAL.NEB IH SCH ×4 (01:48→19:43)
[2016-12-10 04:00] VITALS: BP 106/61
[2016-12-10] MEDS ORDERED: FILTER [FOR TRIPLE MIX] SET 1 EA INFUS.SET MC ONE (04:05)
[2016-12-10] MEDS: BLOOD SUGAR DIAGNOSTIC 1 EACH STRIP IN SCH ×4 (06:23→23:09)
[2016-12-10] MEDS: INSULIN REGULAR, HUMAN 100 UNIT/ML 3 ML VIAL SQ PRN ×4 (06:26→23:16)
--- NOTE | 2016-12-10 06:32 | NUR ---
RN NOTE NO SIGNIFICANT CHANGES OVERNIGHT. NO S/S OF ANY DISTRESS NOTED AT THIS TIME. VENT SETTINGS ACCURATE. PICC LINE INTACT, TOLERATING TPN AND LIPIDS WELL. G TUBE DRAINING TO BAG, J TUBE DRAINING TO COLOSTOMY. KEPT CLEAN AND DRY, REPOSITIONED Q2HR T/O SHIFT. ALL NEEDS ATTENDED TO, WILL F/U WITH DAY SHIFT FOR BLANCA. Addendum: 12/10/16 at 0634 by SHAMIR GOODE RN TELE SHOWS SR IN 'S.
[2016-12-10 07:03] VITALS: BP 112/87
[2016-12-10 07:10] LABS: BASOPHILS # (AUTO) 0.1 /CMM (0.0-0.2); BASOPHILS % (AUTO) 0.7 % (0.0-2.0); EOSINOPHILS # (AUTO) 0.1 /CMM (0.0-0.7); HEMATOCRIT 27 % (39-51); HEMOGLOBIN 8.8 g/dL (13.5-17.5); LYMPHOCYTES # (AUTO) 1.9 /CMM (0.8-4.8); LYMPHOCYTES % (AUTO) 19.6 % (20.0-44.0); MEAN CORPUSCULAR HEMOGLOBIN 30 PG (26.0-33.0); MEAN CORPUSCULAR HGB CONC 33 g/dl (31.0-36.0); MEAN CORPUSCULAR VOLUME 91 fL (80-96); MONOCYTES # (AUTO) 0.6 /CMM (0.1-1.30); MONOCYTES % (AUTO) 6.6 % (2.0-12.0); NEUTROPHILS # (AUTO) 6.9 /CMM (1.8-8.9); NEUTROPHILS % (AUTO) 72.1 % (43.0-81.0); PLATELET COUNT (AUTO) 243 /CMM (150-450); RDW COEFFICIENT OF VARIATION 16.7 (11.5-15.0); WHITE BLOOD COUNT (AUTO) 9.6 K/uL (4.3-11.0)
[2016-12-10 07:16] LABS: CALCIUM, SERUM 8.3 mg/dL (8.5-10.1); CREATININE 0.6 mg/dL (0.6-1.3); MAGNESIUM 2.1 mg/dL (1.8-2.4); PHOSPHORUS 3.9 mg/dL (2.5-4.9); POTASSIUM 4.3 mmol/L (3.5-5.1)
--- NOTE | 2016-12-10 07:34 | NUR ---
RN OPEN NOTES RECEIVED REPORT FROM GENETICS PHYSICIAN NURSE. PATIENT IS IN BED WITH HIS EYES OPEN. NON VERBAL DUE TO VENT DEPENDENCY. VENT SETTING: AC 14, TV 550, O2 40%, PEEP 0. NO SIGNS AND SYMPTOMS OF DISTRESS OR PAIN. BED IN LOW POSITION, LOCKED AND TWO SIDE RAILS ARE UP. WILL CONTINUE TO MONITOR AND ASSESS PATIENT'S CONDITION THROUGH OUT MY SHIFT
--- NOTE | 2016-12-10 07:38 | NUR ---
CRITICAL VALUE GLUCOSE REPORTED BY LAB AT 0737. GLUCOSE LEVEL 445. Addendum: 12/10/16 at 0741 by PARISH VIZCAINO RN BLOOD SUGAR CHECKED BY LIQUID CENTER ASSEMBLER NURSE AT 0615 (LAB JUAN CARLOS BLOOD AT 0545) AND 4 UNITS ADMINISTERED.
[2016-12-10] MEDS: KEPPRA 500 MG in IV NS 100 ML IV SCH ×2 (08:49→21:20)
[2016-12-10] MEDS: PANTOPRAZOLE 40 MG VIAL IV SCH (08:49)
[2016-12-10] MEDS: CLOTRIMAZOLE 1% 15 GM TUBE TP SCH ×2 (08:50→17:08)
[2016-12-10] MEDS: NYSTATIN TOP POWDER 15 GM BOTTLE TP SCH ×2 (08:51→17:08)
[2016-12-10] MEDS: GENTAMICIN 0.1% OINT 15 GM TUBE TP SCH ×2 (09:07→21:20)
[2016-12-10] MEDS: CEFEPIME 1 GM in IV D5W 50 ML IV SCH ×2 (10:43→23:10)
[2016-12-10 12:00] VITALS: BP 121/74
[2016-12-10] MEDS ORDERED: TPN BAG #35 IV PRN ×9 (14:30)
--- NOTE | 2016-12-10 14:58 | NUR ---
DO NOT DRAW BLOOD FROM PICC LINE Addendum: 12/10/16 at 1459 by PARISH VIZCAINO RN PER PHARMACY, DO NOT DRAW BLOOD FROM PICC LINE
[2016-12-10 16:00] VITALS: BP 117/68
--- NOTE | 2016-12-10 18:30 | NUR ---
DRESSING CHANGE COMPLETED PER HOSPITAL PROTOCOL AND WOUND CARE INSTRUCTION
--- NOTE | 2016-12-10 18:55 | NUR ---
RN CLOSING NOTES PATIENT IS IN BED, WITH HIS EYES OPEN. NO SIGNS AND SYMPTOMS OF DISTRESS OR PAIN. ALL NEEDS ANTICIPATED AND NURSING CARE PROVIDED. PATIENT KEPT SAFE, CLEAN AND DRY. IV SITES IS INTACT AND POTENT. BED IN LOW POSITION, LOCKED AND TWO SIDE RAILS ARE UP. WILL ENDORSE TO AIR PURIFIER SERVICER NURSE.
--- NOTE | 2016-12-10 19:05 | NUR ---
RN NOTE RECEIVED REPORT. PT NON VERBAL, TRACH VENT - SETTINGS ACCURATE. NO S/S OF ANY DISTRESS AT THIS TIME. J TUBE DRAINING TO COLOSTOMY, G TUBE DRAINING TO MAI. PICC LINE INTACT AND PATENT, TOLERATING LIPIDS AND TPN WELL. WILL CONT TO MONITOR. AT BEDSIDE, UPDATED ON POC.
[2016-12-10 20:53] VITALS: BP 142/76
[2016-12-10] MEDS ORDERED: FILTER SET SAVER IV SET 1 EA INFUS.SET MC ONE (23:12)
--- NOTE | 2016-12-10 23:30 | NUR ---
RN NOTE BS 139, 2 UNITS GIVEN PER SLIDING SCALE. NEW TPN BAG CHANGED- INFUSING WELL IN PICC LINE.
[2016-12-11] VITALS (8 sets, daily range): BP systolic 106–149; BP diastolic 55–97
[2016-12-11] MEDS: ALBUTEROL FS 2.5 MG/3 ML VIAL.NEB IH SCH ×4 (01:37→19:29)
[2016-12-11] MEDS: IPRATROPIUM NEB FS 0.5 MG/2.5 ML AMPUL.NEB IH SCH ×4 (01:37→19:29)
[2016-12-11] MEDS: BLOOD SUGAR DIAGNOSTIC 1 EACH STRIP IN SCH ×3 (05:20→17:34)
[2016-12-11] MEDS: INSULIN REGULAR, HUMAN 100 UNIT/ML 3 ML VIAL SQ PRN ×3 (05:25→17:33)
--- NOTE | 2016-12-11 06:46 | NUR ---
RN NOTE NO SIGNIFICANT CHANGES OVERNIGHT. PT NON-VERBAL, OBTUNDED. VENT SETTINGS ACCURATE. KEPT CLEAN AND COMFORTABLE T/O SHIFT, ALSO REPOSITIONED Q2HRS.. TOLERATING TPN WELL IN PICC LINE. J AND G TUBE DRAINING. TELE SHOWS ST. TO SEE DR BABCOCK TODAY FOR SURGERY. WILL F/U WITH DAY SHIFT FOR BLANCA.
[2016-12-11 07:22] LABS: CALCIUM, SERUM 8.3 mg/dL (8.5-10.1); CREATININE 0.6 mg/dL (0.6-1.3); MAGNESIUM 1.7 mg/dL (1.8-2.4); PHOSPHORUS 2.9 mg/dL (2.5-4.9); POTASSIUM 3.3 mmol/L (3.5-5.1)
--- NOTE | 2016-12-11 07:31 | NUR ---
AM RN NOTE Received patient non-verbal, lying in his bed. Trach and vent settings noted. No acute distress noted. PICC line intact and patent. G-tube draining to Bailey and J-tube draining to colostomy. Bed in low locked position. Will continue to monitor.
--- NOTE | 2016-12-11 07:58 | NUR ---
Patient received trached on mechanical vent. Breathing treatmnet given as ordered. No adverse reactions noted. Breath sounds equal bilateral. Vent plugged into red outlet and alarms set and functioning. Ambu bag at the bed side
--- NOTE | 2016-12-11 08:30 | NUR ---
AM RN NOTE Received call from Dr. Tirado with new order noted and carried out.
[2016-12-11] MEDS: PANTOPRAZOLE 40 MG VIAL IV SCH (08:38)
[2016-12-11] MEDS: KEPPRA 500 MG in IV NS 100 ML IV SCH ×2 (08:38→21:40)
[2016-12-11] MEDS: CLOTRIMAZOLE 1% 15 GM TUBE TP SCH ×2 (08:39→18:07)
[2016-12-11] MEDS: NYSTATIN TOP POWDER 15 GM BOTTLE TP SCH ×2 (08:40→18:07)
[2016-12-11] MEDS: GENTAMICIN 0.1% OINT 15 GM TUBE TP SCH ×2 (08:40→21:41)
[2016-12-11] MEDS ORDERED: LIDOCAINE 1%-EPI 1:200,000 SDV 10 ML VIAL IJ ONE (09:00)
--- NOTE | 2016-12-11 10:30 | NUR ---
AM RN NOTE Jejunal area sutured by Dr. Tirado. Procedure performed at bedside.
[2016-12-11] MEDS: CEFEPIME 1 GM in IV D5W 50 ML IV SCH (10:38)
[2016-12-11] MEDS ORDERED: TPN BAG #36 IV PRN ×7 (14:30)
[2016-12-11] MEDS ORDERED: SECONDARY IV SET 1 EA INFUS.SET MC ONE ×2 (14:49→17:02)
[2016-12-11] MEDS: Magnesium 1GM/D5W 100ML PREMIX 100 ML IV SCH ×2 (14:53→15:58)
[2016-12-11] MEDS ORDERED: TPN BAG #37 IV PRN ×9 (15:00)
[2016-12-11] MEDS ORDERED: IV SET PRIMARY PUMP SET 1 EA INFUS.SET MC ONE ×2 (16:43→17:18)
[2016-12-11] MEDS ORDERED: FILTER SET SAVER IV SET 1 EA INFUS.SET MC ONE (16:43)
[2016-12-11] MEDS: POTASSIUM CL. PREMIX PERIPHER. 50 ML IV SCH ×2 (17:06→18:06)
[2016-12-11] MEDS: FAT EMULSION 20% 500 ML in PREMIX 1 EA IV SCH (17:22)
--- NOTE | 2016-12-11 18:32 | NUR ---
AM RN NOTE Pt remained obtunded, at bedside. trach and vent settings noted. Kept clean, dry and comfortable. PICC line intact and patent, continue on TPN and lipids. Mg and K replaced. Bed in low locked position. Will endorse care to next shift.
--- NOTE | 2016-12-11 19:45 | NUR ---
RN OPENING NOTES, RECEIVED REPORT FROM LYNDSAYHIFT RNVAN. VISITING AT BEDSIDE. Pt IS AWAKE, NON-VERBAL, & OBTUNDED. ON VENT, WITH SETTINGS AT: TV 550, AC 14, PEEP 0, FIO2 40%, WITH PORTEX #9. ON TELE ST 100-110. IV ACCESS ON ARMANI PICC LINE, IV TPN @60ML/HR & IV LIPIDS @20ML/HR. SAFETY MEASURES IN PLACE. BED LOW, LOCKED, HOB ELEVATED, SIDE RAILS UP, CALL LIGHT AND BEDSIDE TABLE WITHIN REACH. WILL CONTINUE TO MONITOR Pt THROUGHOUT THE NIGHT FOR SAFETY.
[2016-12-12] VITALS: BP 113/67
[2016-12-12] MEDS: BLOOD SUGAR DIAGNOSTIC 1 EACH STRIP IN SCH ×5 (00:19→23:27)
[2016-12-12] MEDS: INSULIN REGULAR, HUMAN 100 UNIT/ML 3 ML VIAL SQ PRN ×5 (00:27→23:32)
--- NOTE | 2016-12-12 00:29 | NUR ---
RN NOTES BG 158. ADMINISTERED 2UN OF INSULIN PER SLIDING SCALE. Pt ON TPN AND LIPIDS.
[2016-12-12] MEDS: IPRATROPIUM NEB FS 0.5 MG/2.5 ML AMPUL.NEB IH SCH ×4 (01:24→19:50)
[2016-12-12] MEDS: ALBUTEROL FS 2.5 MG/3 ML VIAL.NEB IH SCH ×4 (01:25→19:50)
--- NOTE | 2016-12-12 01:29 | NUR ---
RT NOTE PT ALBUTEROL MEDICATION HELD PER FAMILY REQUEST DUE TO ELEVATED HR. RN NOTIFIED. Addendum: 12/12/16 at 0130 by KAREL PERRY RT Amended: Links added.
[2016-12-12 04:00] VITALS: BP 149/76
--- NOTE | 2016-12-12 06:09 | NUR ---
RN NOTES BG 160. ADMINISTERED 2UN OF INSULIN PER SLIDING SCALE. Pt ON TPN & LIPIDS.
--- NOTE | 2016-12-12 06:55 | NUR ---
RN CLOSING NOTES NO SIGNIFICANT CHANGES IN Pt's CONDITION DURING THE NIGHT. NO S/S OF ACUTE DISTRESS OR SOB NOTED. ALL NEEDS MET AND ATTENDED TO. SAFETY MEASURES IN PLACE. WILL ENDORSE TO DAYSHIFT RN FOR Pt's BLANCA. TELE READING ST 100-120
--- NOTE | 2016-12-12 07:30 | NUR ---
RN NOTES RECEIVED PATIENT COMFORTABLY IN BED,NONVERBAL. RESPIRATIONS EVEN AND UNLABORED, IN NO APPARENT PAIN OR DISCOMFORT AT THIS TIME. IV ACCESS PATENT AND INTACT NO REDNESS OR INFILTRATION NOTED. KEPT CLEAN DRY AND COMFORTABLE, CALL LIGHT WITHIN EASY REACH, WILL CONTINUE TO MONITOR
[2016-12-12 07:36] LABS: BASOPHILS # (AUTO) 0.1 /CMM (0.0-0.2); BASOPHILS % (AUTO) 0.6 % (0.0-2.0); EOSINOPHILS # (AUTO) 0.1 /CMM (0.0-0.7); EOSINOPHILS % (AUTO) 0.8 % (0.0-6.0); HEMATOCRIT 27 % (39-51); HEMOGLOBIN 9.3 g/dL (13.5-17.5); LYMPHOCYTES # (AUTO) 2.2 /CMM (0.8-4.8); LYMPHOCYTES % (AUTO) 17.7 % (20.0-44.0); MEAN CORPUSCULAR HEMOGLOBIN 30 PG (26.0-33.0); MEAN CORPUSCULAR HGB CONC 34 g/dl (31.0-36.0); MEAN CORPUSCULAR VOLUME 89 fL (80-96); MONOCYTES # (AUTO) 0.8 /CMM (0.1-1.30); MONOCYTES % (AUTO) 6.3 % (2.0-12.0); NEUTROPHILS # (AUTO) 9.2 /CMM (1.8-8.9); NEUTROPHILS % (AUTO) 74.6 % (43.0-81.0); PLATELET COUNT (AUTO) 255 /CMM (150-450); RDW COEFFICIENT OF VARIATION 16.4 (11.5-15.0); RED BLOOD CELL COUNT(AUTO) 3.08 MIL/uL (4.5-6.0); WHITE BLOOD COUNT (AUTO) 12.4 K/uL (4.3-11.0)
[2016-12-12 08:00] VITALS: BP 147/79
[2016-12-12 08:02] LABS: CALCIUM, SERUM 8.1 mg/dL (8.5-10.1); CREATININE 0.6 mg/dL (0.6-1.3); MAGNESIUM 2.1 mg/dL (1.8-2.4); PHOSPHORUS 2.4 mg/dL (2.5-4.9)
[2016-12-12] MEDS: PANTOPRAZOLE 40 MG VIAL IV SCH (08:53)
[2016-12-12] MEDS: CLOTRIMAZOLE 1% 15 GM TUBE TP SCH ×2 (09:02→16:19)
[2016-12-12] MEDS: HYDROGEL DRESSING 90 GM TUBE TP PRN (09:02)
[2016-12-12] MEDS: NYSTATIN TOP POWDER 15 GM BOTTLE TP SCH ×2 (09:03→16:19)
[2016-12-12] MEDS: KEPPRA 500 MG in IV NS 100 ML IV SCH ×2 (10:25→20:53)
[2016-12-12] MEDS ORDERED: IV SET PRIMARY PUMP SET 1 EA INFUS.SET MC ONE ×2 (10:51→11:19)
[2016-12-12] MEDS ORDERED: FILTER SET SAVER IV SET 1 EA INFUS.SET MC ONE (10:52)
[2016-12-12] MEDS ORDERED: IV NS 0.9% 250 ML IV ONE (11:19)
[2016-12-12] MEDS ORDERED: SECONDARY IV SET 1 EA INFUS.SET MC ONE ×3 (11:19→20:35)
[2016-12-12] MEDS: MICAFUNGIN SODIUM 100 MG in IV NS 0.9% 100 ML IV SCH (11:23)
[2016-12-12 12:00] VITALS: BP 115/71
[2016-12-12] MEDS ORDERED: TPN BAG #38 IV PRN ×7 (12:30)
[2016-12-12] MEDS ORDERED: Sodium Phosphate 5 MMOL in IV D5W 100 ML IV ONE (12:30)
[2016-12-12 12:42] LABS: APPEARANCE,URINE CLEAR (CLEAR); BILIRUBIN,URINE NEGATIVE (NEGATIVE); BLOOD, URINE TRACE-INTA Ery/uL (NEGATIVE); COLOR,URINE YELLOW (YELLOW); KETONES,URINE NEGATIVE (NEGATIVE); LEUKOCYTE ESTERASE ,URINE 2+ (NEGATIVE); NITRITE, URINE NEGATIVE (NEGATIVE); PROTEIN,URINE NEGATIVE (NEGATIVE); UGLUCOSE NEGATIVE (NEGATIVE); UROBILINOGEN,URINE 0.2 EU/dL (0.2)
[2016-12-12 13:11] LABS: RBC,URINE 0-2 /HPF (0-2)
[2016-12-12 13:12] LABS: BACTERIA,URINE 1+ /HPF (None Seen); SQUAMOUS EPITHELIAL CELL,UR None Seen /HPF (None Seen); WBC,URINE 21-50 /HPF (0-3); YEAST,URINE Hyphal filaments /HPF (None Seen)
[2016-12-12 16:00] VITALS: BP 121/78
--- NOTE | 2016-12-12 18:58 | NUR ---
RN NOTES PATIENT COMFORTABLY IN BED,NONVERBAL. RESPIRATIONS EVEN AND UNLABORED, IN NO APPARENT PAIN OR DISCOMFORT AT THIS TIME. IV ACCESS PATENT AND INTACT NO REDNESS OR INFILTRATION NOTED. KEPT CLEAN DRY AND COMFORTABLE, CALL LIGHT WITHIN EASY REACH, WILL CONTINUE TO MONITOR AND WILL ENDORSE TO NEXT SHIFT FOR CONTINUITY OF CARE
--- NOTE | 2016-12-12 19:30 | NUR ---
YOUTH SERVICES LIBRARIAN OPENING NOTES: PATIENT IN BED, OBTUNDED, NON VERBAL, OPENS EYES SPONTANEOUSLY, [facility] WITH THE FF SETTINGS: TV: 550, AC: 14, FIO2: 40% ; PEEP: 0, WITH TRACHE TUBE OF PORTEX # 9. ON TELE MONITORING, SINUS RHYTHM AT RATE OF 90S AT THIS TIME. ARMANI PICC LINE INTACT AND INFUSING WELL WITH TPN #37 AT 60 ML/HR. PATIENT HAS A GTUBE CONNECTED TO DRAIN, WITH LIGHT GREENISH COLORED FLUID IN COLLECTION BAG. AREA AROUND GTUBE SITE INTACT WITHOUT ANY REDNESS OR SWELLING. JTUBE SITE AT LEFT ABDL SIDE HAS COLOSTOMY ATTACHED, CLEAN AND INTACT, SURROUNDING AREA WITHOUT REDNESS, SWELLING OR PURULENT DISCHARGE. BLE NOTED TO HAVE ABNORMAL EXTENSION, ELEVATED ON PILLOWS. PROVIDED FOR COMFORT AND SAFETY. TURNED AND REPOSITIONED. WILL CONT TO MONITOR.
[2016-12-12 20:00] VITALS: BP 126/71
[2016-12-12] MEDS ORDERED: FILTER [FOR TRIPLE MIX] SET 1 EA INFUS.SET MC ONE (20:35)
--- NOTE | 2016-12-12 23:41 | NUR ---
RN NOTES: PATIENT'S BLOOD SUGAR CHECKED AT 156 MG/DL, ADMINISTERED 2 UNITS REGULAR INSULIN SQ PER SCALE. TPN CONTINUOUSLY INFUSING VIA IV AT 60 ML/HR. WILL CONT TO MONITOR.
[2016-12-13] VITALS (8 sets, daily range): BP systolic 106–142; BP diastolic 63–85
[2016-12-13] MEDS: ALBUTEROL FS 2.5 MG/3 ML VIAL.NEB IH SCH ×4 (01:05→19:30)
[2016-12-13] MEDS: IPRATROPIUM NEB FS 0.5 MG/2.5 ML AMPUL.NEB IH SCH ×4 (01:05→19:30)
[2016-12-13] MEDS: BLOOD SUGAR DIAGNOSTIC 1 EACH STRIP IN SCH ×4 (05:41→23:57)
[2016-12-13] MEDS: INSULIN REGULAR, HUMAN 100 UNIT/ML 3 ML VIAL SQ PRN ×3 (05:50→18:12)
--- NOTE | 2016-12-13 05:50 | NUR ---
RN NOTES: BLOOD SUGAR CHECKED AT 143 MG/DL. ADMINISTERED 2 UNITS REGULAR INSULIN SQ PER SS. ON CONTINUOUS TPN IV INFUSION RUNNING AT 60 ML/ HR.
--- NOTE | 2016-12-13 06:27 | NUR ---
UTILITY AIRCREWMAN CLOSING NOTES: PATIENT IN BED, OBTUNDED, NON VERBAL, [facility], BREATHING UNLABORED, O2 SAT AT 98-100% THROUGH NIGHT, ON TELE MONITORING: SINUS RHYTHM AT RATE OF 90S. NO ACUTE CHANGE IN CONDITION NOTED THROUGH NIGHT. ARMANI PICC LINE INTACT AND INFUSING WELL WITH TPN BAG # 38 AT 60 ML/HR. G-TUBE SITE DRAINING LIGHT GREENISH FLUID THROUGH GRAVITY. J-TUBE SITE WITH COLOSTOMY BAG, DRAINING DARK GREENISH FLUID. TURNED AND REPOSITIONED. MORNING CARE RENDERED. WOUND CARE DONE. WILL ENDORSE TO AM RN FOR BLANCA.
--- NOTE | 2016-12-13 07:30 | NUR ---
MS RN RECEIVED ON BED, NON VERBAL, VENT DEPENDENT PATIENT, NOT IN ANY FORM OF DISTRESS, S/P ABD SURGERY W/ DR. BABCOCK, SITE W/ COLOSTOMY BAG DRAINING GREENISH LIQUID OUTPUT, G TUBE CONNECTED TO DRAINAGE BAG W/ YELLOWISH OUTPUT,REPOSITIONED FOR COMFORT,WILL CONTINUE TO MONITOR.
[2016-12-13 07:56] LABS: CALCIUM, SERUM 8.5 mg/dL (8.5-10.1); CREATININE 0.6 mg/dL (0.6-1.3); PHOSPHORUS 2.8 mg/dL (2.5-4.9)
--- NOTE | 2016-12-13 08:45 | NUR ---
MS RN DUE MEDS GIVEN, TOLERATED WELL.
[2016-12-13] MEDS: KEPPRA 500 MG in IV NS 100 ML IV SCH ×2 (09:23→21:40)
[2016-12-13] MEDS: PANTOPRAZOLE 40 MG VIAL IV SCH (09:24)
[2016-12-13] MEDS: NYSTATIN TOP POWDER 15 GM BOTTLE TP SCH ×2 (09:28→17:43)
[2016-12-13] MEDS: CLOTRIMAZOLE 1% 15 GM TUBE TP SCH ×2 (09:29→17:44)
[2016-12-13 09:55] LABS: BASOPHILS # (AUTO) 0.1 /CMM (0.0-0.2); BASOPHILS % (AUTO) 0.6 % (0.0-2.0); EOSINOPHILS # (AUTO) 0.1 /CMM (0.0-0.7); EOSINOPHILS % (AUTO) 1.2 % (0.0-6.0); HEMATOCRIT 27 % (39-51); HEMOGLOBIN 8.9 g/dL (13.5-17.5); LYMPHOCYTES # (AUTO) 1.8 /CMM (0.8-4.8); MEAN CORPUSCULAR HEMOGLOBIN 29 PG (26.0-33.0); MEAN CORPUSCULAR HGB CONC 33 g/dl (31.0-36.0); MEAN CORPUSCULAR VOLUME 89 fL (80-96); MONOCYTES # (AUTO) 0.6 /CMM (0.1-1.30); MONOCYTES % (AUTO) 6.8 % (2.0-12.0); NEUTROPHILS # (AUTO) 6.4 /CMM (1.8-8.9); NEUTROPHILS % (AUTO) 71.4 % (43.0-81.0); PLATELET COUNT (AUTO) 223 /CMM (150-450); RDW COEFFICIENT OF VARIATION 16.2 (11.5-15.0); RED BLOOD CELL COUNT(AUTO) 3.05 MIL/uL (4.5-6.0)
[2016-12-13] MEDS ORDERED: TPN BAG #39 IV PRN ×9 (12:00)
[2016-12-13] MEDS: MICAFUNGIN SODIUM 100 MG in IV NS 0.9% 100 ML IV SCH (14:06)
[2016-12-13] MEDS ORDERED: IV SET PRIMARY PUMP SET 1 EA INFUS.SET MC ONE ×2 (14:27→17:32)
--- NOTE | 2016-12-13 15:50 | NUR ---
MS RN PAGED DR. HERNANDES FOR PAIN MEDS ORDER, AWAITING FOR HIM TO CALL BACK.
--- NOTE | 2016-12-13 16:30 | NUR ---
MS RN CALLED OFFICE OF DR. HERNANDES, WAS ABLE TO SPOKE W/ SLOT ROUTER, WILL PAGED AGAIN DR. HERNANDES.
[2016-12-13] MEDS ORDERED: FILTER SET SAVER IV SET 1 EA INFUS.SET MC ONE (17:32)
[2016-12-13] MEDS: FAT EMULSION 20% 500 ML in PREMIX 1 EA IV SCH (17:43)
--- NOTE | 2016-12-13 19:30 | NUR ---
COMMUNICATION SIGNALS INTELLIGENCE OPENING NOTES: PATIENT IN BED, OBTUNDED, NON VERBAL, OPENS EYES SPONTANEOUSLY, [facility] WITH THE FF SETTINGS: TV: 550, AC: 14, FIO2: 40% ; PEEP: 0, WITH TRACHE TUBE OF PORTEX # 9. ON TELE MONITORING, SINUS RHYTHM AT RATE OF 100-105. ARMANI PICC LINE INTACT AND INFUSING WELL WITH TPN #38 AT 60 ML/HR AND IV LIPIDS AT 20 ML/HR. PATIENT HAS A GTUBE CONNECTED TO DRAIN, WITH LIGHT GREENISH COLORED FLUID IN COLLECTION BAG. AREA AROUND GTUBE SITE INTACT WITHOUT ANY REDNESS OR SWELLING. JTUBE SITE AT LEFT ABDL SIDE HAS COLOSTOMY ATTACHED, DRAINING DARK GREEN FLUID. BLE NOTED TO HAVE ABNORMAL EXTENSION, ELEVATED ON PILLOWS. PROVIDED FOR COMFORT AND SAFETY. TURNED AND REPOSITIONED. WILL CONT TO MONITOR.
--- NOTE | 2016-12-13 19:45 | NUR ---
RN NOTES: PT'S AT BEDSIDE, EXPRESSED CONCERN ABOUT PROBABLE PAIN THAT PT IS EXPERIENCING, AND ASKED IF DR DE JESUS CAN ORDER SOMETHING FOR PAIN. ALSO, SHE ASKED THAT THE 1930 PM SCHEDULED BREATHING TREATMENT BE HELD SHE IS CONCERNED ABOUT PATIENT'S HR. EXPLAINED RISKS, STILL REFUSED.
--- NOTE | 2016-12-13 19:55 | NUR ---
NOTIFIED BY RN THAT PT'S DECLINES BREATHING TX AT THIS TIME DUE TO INCREASE OF HR. WILL CONT TO MONITOR PATIENT.
--- NOTE | 2016-12-13 22:45 | NUR ---
RN NOTES: RECEIVED CALL BACK FROM DR DE JESUS. RECEIVED ORDER FOR TORADOL 30 MG IVP Q 6 HRS PRN FOR MODERATE TO SEVERE PAIN AND TYLENOL 650 MG SUPP FOR MILD PAIN AND FEVER. ORDER NOTED AND CARRIED OUT.
[2016-12-13] MEDS ORDERED: KETOROLAC TROMETHAMINE INJ 30 MG/ML VIAL IV PRN (23:00)
[2016-12-14] VITALS: BP 128/68
--- NOTE | 2016-12-14 | NUR ---
RN NOTES: BS CHECKED AT 169 MG/DL, ADMINISTERED 3 UNITS REGULAR INSULIN PER SCALE. ON CONTINUOUS TPN AND IV LIPIDS.
[2016-12-14] MEDS: INSULIN REGULAR, HUMAN 100 UNIT/ML 3 ML VIAL SQ PRN ×4 (00:06→17:55)
[2016-12-14] MEDS ORDERED: FILTER [FOR TRIPLE MIX] SET 1 EA INFUS.SET MC ONE (00:44)
[2016-12-14] MEDS ORDERED: ACETAMINOPHEN 650 MG/SUPP.RECT RC ONE (00:56)
--- NOTE | 2016-12-14 01:00 | NUR ---
RN NOTES: TYLENOL SUPP GIVEN PER RECTUM FOR TEMP 100.5. PATIENT WAS ALSO SEEN BY DR DE JESUS AT THIS TIME, INFORMED MD OF FEVER AND TACHYCARDIA, RECENT LABS AND THAT PATIENT IS ON MYCAMINE. NNO GIVEN AT THIS TIME, PER MD, IF AFTER THE TYLENOL, HR IS STILL TACHY, GIVE TORADOL IV PRN.
[2016-12-14] MEDS: ACETAMINOPHEN 650 MG/SUPP.RECT RC PRN (01:05)
[2016-12-14] MEDS: IPRATROPIUM NEB FS 0.5 MG/2.5 ML AMPUL.NEB IH SCH ×4 (01:37→19:59)
[2016-12-14] MEDS: ALBUTEROL FS 2.5 MG/3 ML VIAL.NEB IH SCH ×4 (01:37→19:30)
--- NOTE | 2016-12-14 01:52 | NUR ---
RN NOTES: COOLING MEASURES DONE. TEMP RECHECKED AT 99.5 AT THIS TIME.
[2016-12-14] MEDS ORDERED: KETOROLAC TROMETHAMINE INJ 30 MG/ML VIAL ONE (02:26)
--- NOTE | 2016-12-14 02:57 | NUR ---
RN NOTES: PATIENT'S HR IS STILL 105-110 AND APPEARS RESTLESS. ADMINISTERED TORADOL 30 MG IV PRN. WILL CONT TO MONITOR.
--- NOTE | 2016-12-14 03:00 | NUR ---
RN NOTES: NOTED SKIN TEAR OVER LEFT CHEEK 0.6 X 0.3 CM, NON BLEEDING, WITH SCABBING AT OUTER EDGE. CLEANSED WITH NS, PATTED DRY. PICTURE TAKEN. ORDERED FOR WOUND CARE CONSULT IN THE AM.
[2016-12-14 04:00] VITALS: BP 99/57
--- NOTE | 2016-12-14 04:00 | NUR ---
RN NOTES: RENDERED MORNING CARE AND WOUND CARE TO PATIENT. NOTED THAT HR IS NOW AT 90S, TEMP IS 98.1. PATIENT APPEARS MORE RELAXED WELL. WILL CONT TO MONITOR.
[2016-12-14] MEDS: BLOOD SUGAR DIAGNOSTIC 1 EACH STRIP IN SCH ×3 (05:59→17:53)
[2016-12-14 06:00] VITALS: BP 92/57
--- NOTE | 2016-12-14 06:02 | NUR ---
RN NOTES: PATIENT'S BS CHECKED AT 174 MG/DL, ADMINISTERED 3 UNITS REGULAR INSULIN SQ PER SCALE. TPN AND IV LIPIDS CONTINUOUSLY INFUSING WELL.
--- NOTE | 2016-12-14 06:54 | NUR ---
AUTO PARTS HANDLER CLOSING NOTES: PATIENT IN BED, OBTUNDED, NON VERBAL, [facility], BREATHING UNLABORED, O2 SAT AT 98-100% THROUGH NIGHT, ON TELE MONITORING: SINUS RHYTHM AT RATE OF 75- 80S AT THIS TIME. AFEBRILE AT THIS TIME, WILL CONT TO MONITOR FOR FEVER. ARMANI PICC LINE INTACT AND INFUSING WELL WITH TPN BAG # 39 AT 60 ML/HR, AND IV LIPIDS RUNNING AT 20 ML/HR. G-TUBE SITE DRAINING LIGHT GREENISH FLUID THROUGH GRAVITY. J-TUBE SITE WITH COLOSTOMY BAG, DRAINING DARK GREENISH FLUID. TURNED AND REPOSITIONED. MORNING CARE RENDERED. WOUND CARE DONE. WILL ENDORSE TO AM RN FOR BLANCA.
[2016-12-14 07:12] LABS: BASOPHILS # (AUTO) 0.1 /CMM (0.0-0.2); BASOPHILS % (AUTO) 0.6 % (0.0-2.0); EOSINOPHILS # (AUTO) 0.2 /CMM (0.0-0.7); EOSINOPHILS % (AUTO) 1.5 % (0.0-6.0); HEMATOCRIT 26 % (39-51); HEMOGLOBIN 8.8 g/dL (13.5-17.5); LYMPHOCYTES # (AUTO) 2.5 /CMM (0.8-4.8); LYMPHOCYTES % (AUTO) 23.5 % (20.0-44.0); MEAN CORPUSCULAR HEMOGLOBIN 30 PG (26.0-33.0); MEAN CORPUSCULAR HGB CONC 33 g/dl (31.0-36.0); MEAN CORPUSCULAR VOLUME 90 fL (80-96); MONOCYTES # (AUTO) 0.8 /CMM (0.1-1.30); MONOCYTES % (AUTO) 7.4 % (2.0-12.0); NEUTROPHILS # (AUTO) 7.1 /CMM (1.8-8.9); PLATELET COUNT (AUTO) 216 /CMM (150-450); RDW COEFFICIENT OF VARIATION 16.6 (11.5-15.0); RED BLOOD CELL COUNT(AUTO) 2.93 MIL/uL (4.5-6.0); WHITE BLOOD COUNT (AUTO) 10.6 K/uL (4.3-11.0)
[2016-12-14 07:23] LABS: ALBUMIN 2.3 g/dL (3.4-5.0); BILIRUBIN,TOTAL 0.8 mg/dL (0.2-1.0); CALCIUM, SERUM 8.2 mg/dL (8.5-10.1); CREATININE 0.6 mg/dL (0.6-1.3); MAGNESIUM 1.9 mg/dL (1.8-2.4); PHOSPHORUS 2.8 mg/dL (2.5-4.9); POTASSIUM 3.6 mmol/L (3.5-5.1); TOTAL PROTEIN, SERUM 7.2 g/dL (6.4-8.2)
--- NOTE | 2016-12-14 07:30 | NUR ---
MATERNITY NURSE NOTES RECEIVED REPORT WITH PATIENT RESTING COMFORTABLY IN BED. PATIENT IS NONVERBAL AND OBTUNDED. NO S/S OF ACUTE DISTRESS OR SOB NOTED. PATIENT ON TELE MONITOR: SR, HR AT 78. BREATHING IS EVEN AND UNLABORED. PATIENT ON MECHANICAL VENTILATOR: VENT SETTINGS HAVE BEEN NOTED. PICC LINE IS PATENT AND INTACT. TPN AND LIPIDS ARE RUNNING. G-TUBE SITE DRAINING. J-TUBE SITE DRAINING. BED IS IN THE LOWEST, LOCKED POSITION. WILL CONTINUE TO MONITOR THROUGHOUT SHIFT.
[2016-12-14] MEDS: NYSTATIN TOP POWDER 15 GM BOTTLE TP SCH ×2 (08:47→17:12)
[2016-12-14] MEDS: CLOTRIMAZOLE 1% 15 GM TUBE TP SCH ×2 (08:47→17:12)
[2016-12-14] MEDS: PANTOPRAZOLE 40 MG VIAL IV SCH (08:47)
[2016-12-14] MEDS: KEPPRA 500 MG in IV NS 100 ML IV SCH ×2 (10:10→21:00)
[2016-12-14] MEDS ORDERED: TPN BAG #41 IV PRN ×9 (11:30)
[2016-12-14] MEDS ORDERED: TPN BAG #40 IV PRN ×7 (11:30)
[2016-12-14] MEDS: MICAFUNGIN SODIUM 100 MG in IV NS 0.9% 100 ML IV SCH (12:07)
[2016-12-14 16:00] VITALS: BP 122/74
--- NOTE | 2016-12-14 18:58 | NUR ---
EARLY CHILDHOOD ASSOCIATE TEACHER NOTES PATIENT RESTING COMFORTABLY IN BED. PATIENT NONVERBAL AND OBTUNDED. BREATHING IS EVEN AND UNLABORED. NO S/S OF DISTRESS OR SOB NOTED. PATIENT ON VENTILATOR; VENT SETTINGS HAVE BEEN NOTED. PATIENT ON TELE MONITOR: SINUS RHYTHM- HR IS AT 78. IS AT BEDSIDE. PICC LINE IS PATENT AND INTACT. PATIENT HAS LIPIDS AND TPN RUNNING. BED IS IN THE LOWEST, LOCKED POSITION. WILL ENDORSE CARE TO PM SHIFT.
--- NOTE | 2016-12-14 19:00 | NUR ---
MS RN INITIAL NOTE PT RECEIVED IN BED, OBTUNDED, NON VERBAL, ON VENT SETTINGS ORDERED BY MD. NO S/S OF RESPIRATORY DISTRESS OR SOB. IV SITE INTACT WITH NO S/S OF INFILTRATION NOTED. SAFE ENVIRONMENT PROVIDED FREE OF CLUTTERS .BED IN LOCKED, LOW POSITION. CALL LIGHT WITHIN EASY REACH. WILL CONTINUE TO MONITOR.
--- NOTE | 2016-12-14 19:59 | NUR ---
ATROVENT BREATHING TX GIVEN AT THIS TIME. ALBUTEROL WAS NOT GIVEN PER PT'S REQUEST. PT'S DOES NOT WANT ALBUTEROL TO BE GIVEN DURING THE NIGHT. RN NOTIFIED. WILL CONT TO MONITOR PT.
[2016-12-14 20:00] VITALS: BP 134/78
[2016-12-14 20:44] VITALS: BP 134/78
[2016-12-15] VITALS (9 sets, daily range): BP systolic 105–143; BP diastolic 59–80
[2016-12-15] MEDS: BLOOD SUGAR DIAGNOSTIC 1 EACH STRIP IN SCH ×4 (00:12→18:22)
[2016-12-15] MEDS: INSULIN REGULAR, HUMAN 100 UNIT/ML 3 ML VIAL SQ PRN ×3 (00:14→12:28)
[2016-12-15] MEDS ORDERED: IV SET PRIMARY PUMP SET 1 EA INFUS.SET MC ONE ×3 (00:25→18:55)
[2016-12-15] MEDS ORDERED: FILTER SET SAVER IV SET 1 EA INFUS.SET MC ONE (00:25)
[2016-12-15] MEDS: ALBUTEROL FS 2.5 MG/3 ML VIAL.NEB IH SCH ×4 (01:30→19:30)
[2016-12-15] MEDS: IPRATROPIUM NEB FS 0.5 MG/2.5 ML AMPUL.NEB IH SCH ×4 (01:42→19:34)
--- NOTE | 2016-12-15 06:33 | NUR ---
CLAMP TRUCK DRIVER CLOSING NOTES PATIENT COMFORTABLY ASLEEP AND EASILY AWAKEN, HEAD OF BED ELEVATED FOR BETTER LUNG EXPANSION. TOLERATING VENT SETTINGS ORDERED BY MD. TPN ONGOING #40 BAG 60 MLS/HR.ARMANI PICC LINE INTACT NO S/S OF INFECTION. RESPIRATIONS EVEN AND UNLABORED. NO S/S OF ACUTE DISTRESS, NO SOB, SKIN WARM AND DRY TO TOUCH, AFEBRILE, ALL NURSING CARE NEEDS PROVIDED AND RENDERED, KEPT CLEAN AND DRY AND COMFORTABLE,TREATMENT ORDERED. GOOD SKIN CARE PROVIDED. FREQUENT VISUAL CHECK DONE FOR SAFETY EVERY 2 HOURS. REPOSITIONED EVERY 2 HOURS FOR COMFORT AND SKIN MGT. SAFE HAZARD FREE ENVIRONMENT PROVIDED. CALL LIGHT WITHIN EASY TO REACH, ON LOW BED AT ALL TIMES TO ENSURE SAFETY, WILL ENDORSE TO THE NEXT SHIFT CONTINUE PLAN OF CARE. NO S/S OF HYPO/HYPERGLYCEMIA
--- NOTE | 2016-12-15 07:30 | NUR ---
CHILD CARE WORKER NOTES PATIENT NONVERBAL. PATIENT BREATHING EVEN AND UNLABORED. NO S/S OF DISTRESS OR SOB NOTED. PICC LINE IS PATENT AND INTACT. IV LIPIDS AND TPN RUNNING. PATIENT ON TELE MONITOR:SR- HR IS AT 78. PATIENT ON VENTILATOR. VENT SETTINGS NOTED. SAFETY MEASURES IMPLEMENTED. WILL CONTINUE TO MONITOR THROUGHOUT SHIFT.
[2016-12-15 07:44] LABS: CALCIUM, SERUM 8.2 mg/dL (8.5-10.1); CREATININE 0.6 mg/dL (0.6-1.3); PHOSPHORUS 3.4 mg/dL (2.5-4.9); POTASSIUM 4.4 mmol/L (3.5-5.1)
--- NOTE | 2016-12-15 09:58 | NUR ---
WOUND CARE CONSULT: RECEIVED WOUND CONSULT FOR DRY ABRASION TO LEFT CHEEK. DEFER TO DR LORA. WILL SEE PRN.
[2016-12-15] MEDS: KEPPRA 500 MG in IV NS 100 ML IV SCH ×2 (10:16→20:36)
[2016-12-15] MEDS: PANTOPRAZOLE 40 MG VIAL IV SCH (10:16)
[2016-12-15] MEDS: CLOTRIMAZOLE 1% 15 GM TUBE TP SCH ×2 (10:17→19:01)
[2016-12-15] MEDS: NYSTATIN TOP POWDER 15 GM BOTTLE TP SCH ×2 (10:17→19:01)
[2016-12-15] MEDS ORDERED: TPN BAG #42 IV PRN ×7 (12:00)
[2016-12-15] MEDS: MICAFUNGIN SODIUM 100 MG in IV NS 0.9% 100 ML IV SCH (12:27)
[2016-12-15] MEDS: FAT EMULSION 20% 500 ML in PREMIX 1 EA IV SCH (16:59)
--- NOTE | 2016-12-15 19:20 | NUR ---
RN NOTES RECEIVED PT ASLEEP, HOB ELEVATED, NON VERBAL, NO SOB, NOT IN DISTRESS, ON MECHANICAL VENT WITH SETTINGS IN PLACED AND TOLERATED WELL. TELEMONITOR READS SINUS RHYTHM WITH HEART RATE AT 93. NOTED PT WITH FLUSHED FACE AND WARMTH TO TOUCH TEMP CHECKED 100.3 , WILL GIVE ANTI PYRETIC MEDS ORDERED. WITH G-TUBE DRAINING TO GRAVITY WITH CLOUDY GREENISH FLUID INTO ATTACHED DRAINAGE BAG. S/P CLOSURE OF JT STOMA, WITH OSTOMY BAG WITH BILIOUS SECRETIONS NOTES. PICC LINE ON RIGHT UPPER ARM, PATENT AND INTACT WITH TPN #41 AT 60 ML/HR INFUSING WELL. KEPT PT CLEAN AND DRY. KEPT BED IN THE LOWEST POSITION LOCKED, SIDE RAILS X3 UP. WILL CONTINUE TO MONITOR PT.
--- NOTE | 2016-12-15 19:37 | NUR ---
ORGANIC GARDENING TEACHER NOTES PATIENT NONVERBAL. PATIENT BREATHING EVEN AND UNLABORED. NO S/S OF DISTRESS OR SOB NOTED. PICC LINE IS PATENT AND INTACT. IV LIPIDS AND TPN RUNNING. PATIENT ON TELE MONITOR:SR- HR IS AT 93. PATIENT ON VENTILATOR. VENT SETTINGS NOTED. SAFETY MEASURES IMPLEMENTED.ALL NEEDS MET. TPN BAG #41. WILL ENDORSE CARE TO PM SHIFT.
[2016-12-15] MEDS: ACETAMINOPHEN 650 MG/SUPP.RECT RC PRN (20:37)
--- NOTE | 2016-12-15 20:37 | NUR ---
RN NOTES TEMP 100.3, TYLENOL 650 MG SUPP ADMINISTERED RECTALLY, WILL CONTINUE TO MONITOR PT.
--- NOTE | 2016-12-15 22:00 | NUR ---
RN NOTES TEMP RECHECKED 100, CONTINOUS COOLING MEASURES GIVEN. WILL CONTINUE TO MONITOR PT.
[2016-12-16] MEDS: BLOOD SUGAR DIAGNOSTIC 1 EACH STRIP IN SCH ×4 (00:10→17:09)
[2016-12-16] MEDS: INSULIN REGULAR, HUMAN 100 UNIT/ML 3 ML VIAL SQ PRN ×3 (00:13→17:08)
[2016-12-16] MEDS: ALBUTEROL FS 2.5 MG/3 ML VIAL.NEB IH SCH ×4 (01:25→19:03)
[2016-12-16] MEDS: IPRATROPIUM NEB FS 0.5 MG/2.5 ML AMPUL.NEB IH SCH ×4 (01:25→19:03)
--- NOTE | 2016-12-16 01:30 | NUR ---
RN NOTES RN NOTES TEMP RECHECKED 99.8, CONTINOUS COOLING MEASURES GIVEN. WILL CONTINUE TO MONITOR PT.
[2016-12-16] MEDS: ACETAMINOPHEN 650 MG/SUPP.RECT RC PRN ×2 (03:22→10:16)
--- NOTE | 2016-12-16 03:22 | NUR ---
RN NOTES TYLENOL 650 MG SUPP ADMINISTER RECTALLY FOR TEMP OF 100.3, COOLING MEASURE AND COLS SPONGE BATH GIVEN. WILL CONTINUE TO MONITOR.
[2016-12-16 04:49] VITALS: BP 124/75
--- NOTE | 2016-12-16 05:00 | NUR ---
RN NOTES TEMP RECHECKED 98.7. WILL CONTINUE TO MONITOR.
[2016-12-16] MEDS: HYDROGEL DRESSING 90 GM TUBE TP PRN (05:52)
--- NOTE | 2016-12-16 05:52 | NUR ---
RN NOTES BLOOD SUGAR CHECKED 117 MG/DL, NO INSULIN COVERAGE PER SLIDING SCALE. NO SIGNS OF HYPERGLYCEMIA NOTED. WILL CONTINUE TO MONITOR.
--- NOTE | 2016-12-16 06:00 | NUR ---
RN NOTES TEMP RECHECKED 98.7.
--- NOTE | 2016-12-16 07:05 | NUR ---
RECEIVED PT IN BED IN SEMI FOWLERS POSITION. NO SOB OR SIGNS OR DISTRESS. PT CONNECTED TO VENT WITH TRACH, PICC LINE IN R ARM RUNNING LIPIDS AND TPN. G-TUBE CONNECTED TO MAI DRAINING AND J-SITE COVERED WITH COLOSTOMY BAG. BED IS IN LOW AND LOCKED POSITION, SIDE RAILS UP X2. WILL CONTINUE TO MONITOR.
--- NOTE | 2016-12-16 07:30 | NUR ---
RN NOTES PT ASLEEP, HOB ELEVATED, NO SOB, NOT IN DISTRESS, TOLERATING MECHANICAL VENT WELL. LATEST TEMP 99. NO EPISODE OF NAUSEA AND VOMITING. TELEMONITOR READS SINUS RHYTHM AT 110. SKIN CARE AND WOUND CARE DONE. J-TUBE SITE STILL WITH GREENISH SECRETIONS INTO OSTOMY BAG. G-TUBE DRAIN WITH GREENISH DRAINAGE. TURN AND REPOSITION SCHEDULED. KEPT PT CLEAN AND DRY. ALL DUE MEDS GIVEN. ENDORSED TO MORNING RN FOR CONTINUITY OF CARE.
[2016-12-16 08:00] VITALS: BP 148/80
[2016-12-16 08:16] LABS: BASOPHILS % (AUTO) 0.3 % (0.0-2.0); EOSINOPHILS % (AUTO) 0.1 % (0.0-6.0); HEMATOCRIT 27 % (39-51); HEMOGLOBIN 9.2 g/dL (13.5-17.5); LYMPHOCYTES # (AUTO) 1.3 /CMM (0.8-4.8); LYMPHOCYTES % (AUTO) 9.8 % (20.0-44.0); MEAN CORPUSCULAR HEMOGLOBIN 30 PG (26.0-33.0); MEAN CORPUSCULAR HGB CONC 34 g/dl (31.0-36.0); MEAN CORPUSCULAR VOLUME 88 fL (80-96); MONOCYTES # (AUTO) 0.5 /CMM (0.1-1.30); MONOCYTES % (AUTO) 3.6 % (2.0-12.0); NEUTROPHILS # (AUTO) 11.1 /CMM (1.8-8.9); NEUTROPHILS % (AUTO) 86.2 % (43.0-81.0); PLATELET COUNT (AUTO) 225 /CMM (150-450); RDW COEFFICIENT OF VARIATION 16.7 (11.5-15.0); RED BLOOD CELL COUNT(AUTO) 3.09 MIL/uL (4.5-6.0); WHITE BLOOD COUNT (AUTO) 12.9 K/uL (4.3-11.0)
[2016-12-16] MEDS ORDERED: SECONDARY IV SET 1 EA INFUS.SET MC ONE ×3 (08:53→12:22)
[2016-12-16] MEDS ORDERED: IV NS 0.9% 250 ML IV ONE (08:58)
[2016-12-16] MEDS: PANTOPRAZOLE 40 MG VIAL IV SCH (08:59)
[2016-12-16] MEDS: KEPPRA 500 MG in IV NS 100 ML IV SCH (08:59)
[2016-12-16] MEDS: CLOTRIMAZOLE 1% 15 GM TUBE TP SCH ×2 (08:59→16:16)
[2016-12-16] MEDS: NYSTATIN TOP POWDER 15 GM BOTTLE TP SCH ×2 (08:59→16:16)
[2016-12-16 09:05] LABS: ALBUMIN 2.4 g/dL (3.4-5.0); CALCIUM, SERUM 8.2 mg/dL (8.5-10.1); CREATININE 0.6 mg/dL (0.6-1.3); PHOSPHORUS 2.6 mg/dL (2.5-4.9); POTASSIUM 4.4 mmol/L (3.5-5.1); TOTAL PROTEIN, SERUM 7.4 g/dL (6.4-8.2)
[2016-12-16] MEDS ORDERED: IV SET PRIMARY PUMP SET 1 EA INFUS.SET MC ONE (09:06)
--- NOTE | 2016-12-16 09:49 | NUR ---
Patient received trached on mechanical vent. Breath sounds equal bilateral. Breathing treatment given as ordered and tolerated very well. No adverse reactions noted. Ambu bag at the bed side.
[2016-12-16] MEDS: MICAFUNGIN SODIUM 100 MG in IV NS 0.9% 100 ML IV SCH (09:56)
[2016-12-16] MEDS ORDERED: TPN BAG #42 IV PRN ×7 (10:28)
[2016-12-16] MEDS ORDERED: TPN BAG #43 IV PRN ×9 (10:30)
[2016-12-16] MEDS ORDERED: CEFEPIME 1 GM in IV D5W 50 ML IV SCH (11:00)
--- NOTE | 2016-12-16 11:00 | NUR ---
ELEVATED WBC 12.9 TEMP 102.2 GIVEN TYLENOL SUPP 650MG AT 1016, WILL REASSESS. PATIENT IS SEEN BY DR. DE JESUS TODAY, REVIEWED LAB RESULT WITH AND CURRENT TEMP. DR. DE JESUS TO START ON CEFEPIME 1GM IV Q 12 HOURS. PER MD PATIENT IS TO BE DISCHARGED TODAY 12/16/16 TO [facility]. CHARGE NURSE INFORMED.
[2016-12-16] MEDS ORDERED: HEPARIN SODIUM, PORCINE 5000 UNITS/1 ML VIAL SQ SCH (11:30)
[2016-12-16 12:00] VITALS: BP 135/73
[2016-12-16] MEDS ORDERED: FILTER [FOR TRIPLE MIX] SET 1 EA INFUS.SET MC ONE (13:02)
--- NOTE | 2016-12-16 14:35 | NUR ---
DISCHARGE INSTRUCTION GIVEN TO CRISTIANO-, VERBALIZED UNDERSTANDING. COPIES OF DISCHARGE INSTRUCTION PROVIDED TO .
--- NOTE | 2016-12-16 15:23 | NUR ---
CALLED [facility], SPOKE TO ORA FOR REPORT.
[2016-12-16 16:00] VITALS: BP 136/78
--- NOTE | 2016-12-16 18:57 | NUR ---
RECEPTIONIST CLERK NOTES PATIENT TO BE DISCHARGED TODAY ORDERED. V/S REMAINS STABLE, AFEBRILE. PHOTOS TAKEN AND PLACE IN THE CHART. WILL ENDORSE TO [employer] CERTIFIED NETWORK PROFESSIONAL RN FOR [place] OF CARE.
--- NOTE | 2016-12-16 19:00 | NUR ---
BEER COOLER OPENING NOTES: RECEIVED PT IN BED WITH EYES OPEN AND IN S PETE FOWLERS POSITION. NO SOB OR SIGNS OF DISTRESS NOTED AT THIS TIME. PT ON VENT AND SETTINGS ARE TV:550, AC 14, FIO2 40%, PEEP 0 AND PORTEX #9. PT IS ON TELE MONITOR AND IS SINUS TACHY 112. PICC LINE IN R ARM. G-TUBE CONNECTED TO MAI DRAINING AND J-SITE COVERED WITH COLOSTOMY BAG. BED IS IN LOW AND LOCKED POSITION, SIDE RAILS UP X2. AWAITING FOR PICKUP TO GET DISCHARGED TO [facility]. WILL CONTINUE TO MONITOR PT.
[2016-12-16 20:00] VITALS: BP 143/83
--- NOTE | 2016-12-16 20:30 | NUR ---
FILLING ROOM OPERATOR NOTES: PT LEFT IN STABLE CONDITION. PT WAS PICKED UP FROM [facility] WITH KALYN RT, AND 2 DRILLING FIELD OPERATOR TO GO TO [facility].
== END 2016-12-16 20:45 | disposition short-term general hospital (02) | DRG 393 ==
LOC: ER 17:51 → TELE 19:35
PROVIDERS: ADMIT Internal Medicine Rheumatology; ATTEND Internal Medicine Rheumatology
PROC: 5A1955Z Respiratory Ventilation, Greater than 96 Consecutive Hours (ICD-10-PCS; principal; 2016-11-12)
PROC: 05H533Z Insertion of Infusion Device into Right Subclavian Vein, Percutaneous Approach (ICD-10-PCS; 2016-11-14)
PROC: 02HV33Z Insertion of Infusion Device into Superior Vena Cava, Percutaneous Approach (ICD-10-PCS; 2016-11-18)
PROC: B548ZZA Ultrasonography of Superior Vena Cava, Guidance (ICD-10-PCS; 2016-11-18)
PROC: 0DPDXUZ Removal of Feeding Device from Lower Intestinal Tract, External Approach (ICD-10-PCS; 2016-11-20)
PROC: 0DS Gastrointestinal System, Reposition (ICD-10-PCS; 2016-11-20)
PROC: 30233N1 Transfusion of Nonautologous Red Blood Cells into Peripheral Vein, Percutaneous Approach (ICD-10-PCS; 2016-11-24)
PROC: 0DS Gastrointestinal System, Reposition (ICD-10-PCS; 2016-12-11)
DX: K94.13 Enterostomy malfunction (principal); A41.9 Sepsis, unspecified organism; R53.2 Functional quadriplegia; E43 Unspecified severe protein-calorie malnutrition; J15.8 Pneumonia due to other specified bacteria; R65.20 Severe sepsis without septic shock; E87.1 Hypo-osmolality and hyponatremia; G93.1 Anoxic brain damage, not elsewhere classified; J95.851 Ventilator associated pneumonia; K86.1 Other chronic pancreatitis; D68.59 Other primary thrombophilia; R40.3 Persistent vegetative state; R64 Cachexia; L03.311 Cellulitis of abdominal wall; Z99.11 Dependence on respirator [ventilator] status; E87.2 Acidosis; K51.30 Ulcerative (chronic) rectosigmoiditis without complications; I70.262 Atherosclerosis of native arteries of extremities with gangrene, left leg; L97.229 Non-pressure chronic ulcer of left calf with unspecified severity; D68.9 Coagulation defect, unspecified; K63.2 Fistula of intestine; K80.00 Calculus of gallbladder with acute cholecystitis without obstruction; E11.52 Type 2 diabetes mellitus with diabetic peripheral angiopathy with gangrene; K80.42 Calculus of bile duct with acute cholecystitis without obstruction; J96.10 Chronic respiratory failure, unspecified whether with hypoxia or hypercapnia; B37.89 Other sites of candidiasis; K94.22 Gastrostomy infection; Y83.9 Surgical procedure, unspecified as the cause of abnormal reaction of the patient, or of later complication, without mention of misadventure at the time of the procedure; Y73.1 Therapeutic (nonsurgical) and rehabilitative gastroenterology and urology devices associated with adverse incidents; D63.8 Anemia in other chronic diseases classified elsewhere; E83.39 Other disorders of phosphorus metabolism; K21.9 Gastro-esophageal reflux disease without esophagitis; E83.51 Hypocalcemia; E83.42 Hypomagnesemia; E78.5 Hyperlipidemia, unspecified; I10 Essential (primary) hypertension; I25.10 Atherosclerotic heart disease of native coronary artery without angina pectoris; N28.9 Disorder of kidney and ureter, unspecified; Z93.0 Tracheostomy status; Z86.73 Personal history of transient ischemic attack (TIA), and cerebral infarction without residual deficits; Z79.899 Other long term (current) drug therapy; D72.829 Elevated white blood cell count, unspecified; Z95.1 Presence of aortocoronary bypass graft; E87.6 Hypokalemia; Z22.322 Carrier or suspected carrier of Methicillin resistant Staphylococcus aureus; K59.00 Constipation, unspecified; L89.151 Pressure ulcer of sacral region, stage 1; L98.8 Other specified disorders of the skin and subcutaneous tissue; L30.4 Erythema intertrigo; L89.621 Pressure ulcer of left heel, stage 1; L89.611 Pressure ulcer of right heel, stage 1; X58.XXXA Exposure to other specified factors, initial encounter; Y93.9 Activity, unspecified; Y92.129 Unspecified place in nursing home as the place of occurrence of the external cause; E11.621 Type 2 diabetes mellitus with foot ulcer; L97.519 Non-pressure chronic ulcer of other part of right foot with unspecified severity; L97.529 Non-pressure chronic ulcer of other part of left foot with unspecified severity; I70.242 Atherosclerosis of native arteries of left leg with ulceration of calf; M85.80 Other specified disorders of bone density and structure, unspecified site; L30.9 Dermatitis, unspecified; M24.571 Contracture, right ankle; M24.572 Contracture, left ankle; K63.4 Enteroptosis; S60.222A Contusion of left hand, initial encounter; S60.221A Contusion of right hand, initial encounter; K76.9 Liver disease, unspecified; Y83.3 Surgical operation with formation of external stoma as the cause of abnormal reaction of the patient, or of later complication, without mention of misadventure at the time of the procedure; Y84.8 Other medical procedures as the cause of abnormal reaction of the patient, or of later complication, without mention of misadventure at the time of the procedure; Z79.84 Long term (current) use of oral hypoglycemic drugs; R13.10 Dysphagia, unspecified; N50.89 Other specified disorders of the male genital organs
CPT/HCPCS: 31720; 36415; 36569; 71010-TC; 74000-TC; 74160-TC; 78226; 80048-TC; 80053-TC; 80076-TC; 80202-TC; 81000-TC; 82150-TC; 82247-TC; 82248-TC; 82272-TC; 82728-TC; 82947-TC; 82962-TC; 83540-TC; 83605-TC; 83690-TC; 83735-TC; 84100-TC; 84478-TC; 84484-TC; 85025-TC; 85610-TC; 85730-TC; 86850-TC; 86921-TC; 87040-TC; 87070-TC; 87081-TC; 87086-TC; 87186-TC; 93307-TC; 94002-TC; 94003-TC; 94760-TC; 94761-TC; 94762-TC; 99082-TC; A4216; A4606; A6248; A6253; A6402; A6403; A6407; A7526; A9537; A9563; C1751; C9113; J0692; J1450; J1644; J1650; J1815; J1885; J1953; J1956; J2248; J2543; J3260; J3370; J3475; J3480; J3490; J7030; J7040; J7042; J7050; J7060; P9016-BL; P9047; Q9963; Q9967; Z7610